=== PATIENT | female | born 1985 | race Caucasian/White ===

== ENCOUNTER 2017-05-03 20:19 | Emergency (ER) | payer OTHER ==
[2017-05-03] MEDS ORDERED: ALBUTEROL NEB 2.5 MG/3 ML INH STA (20:45)
[2017-05-03] MEDS ORDERED: ALBUTEROL NEB 2.5 MG/3 ML INH ONE (20:59)
[2017-05-03] MEDS ORDERED: SODIUM CHLORIDE FLUSH 0.9% 10 ML SYRINGE IVP ONE (21:04)
--- NOTE | 2017-05-03 21:12 | ED Physician Documentation ---
History of Present Illness - Stated complaint Stated Complaint: CHEST/BACK PX - Chief complaint Chief Complaint: General - Additonal information Additional information: hx from pt 31 female moved from [facility] a month ago upper back pain for a week chest pain since yesterday with SOA sig decreased exercise tolerance sx worse with exertion no leg swelling but had LLE calf pain hx seasonal allergies but not RAD Review of Systems Constitutional: denies: Fever, Chills Cardiac: reports: Chest pain / pressure Respiratory: reports: Dyspnea. denies: Cough GI: denies: Abdominal Pain, Nausea, Vomiting Musculoskeletal: reports: Back pain (upper) Endocrine: denies: Easy bruising / bleeding Immunocompromised: denies: Immunocompromised PD PAST MEDICAL HISTORY - Present Medications Home Medications: Ambulatory Orders Medication Instructions Recorded Confirmed Esomeprazole Magnesium [Nexium] 40 mg PO BID 05/03/17 05/03/17 Montelukast [Singulair] 10 mg PO QPM 05/03/17 05/03/17 Albuterol Sulfate [Proair Hfa 2 puffs INH Q4H PRN #1 inhaler 05/04/17 Inhaler] predniSONE [Deltasone] 60 mg PO DAILY 5 Days 05/04/17 - Allergies Allergies/Adverse Reactions: Allergies Allergy/AdvReac Type Severity Reaction Status Date / Time amoxicillin Allergy Unknown Verified 05/03/17 20:27 PD ED PE NORMAL - Vitals Vital signs reviewed: Yes - General General: Alert and oriented X 3 - Neck Neck: Supple, no meningeal sign - Cardiac Cardiac: RRR - Respiratory Respiratory: No respiratory distress, Clear bilaterally - Abdomen Abdomen: Soft, Non tender - Derm Derm: Normal color - Extremities Extremities: No deformity, Normal ROM s pain, No edema, No calf tenderness / cord - Neuro Neuro: Alert and oriented X 3 - Psych Psych: Normal mood Results - Vitals Vitals: Vital Signs - 24 hr 05/03/17 05/03/17 05/03/17 20:22 20:50 23:24 Temperature 36.4 C L Heart Rate 77 74 66 Respiratory 16 16 12 Rate Blood Pressure 124/86 H 127/85 H O2 Saturation 99 100 Oxygen O2 Source Room air - EKG (time done) 2048 Rate: Rate (enter#) Rhythm: NSR [place]: Normal Intervals: Normal [place] QRS: Normal Ischemia: Normal ST segments - Labs Labs: Laboratory Tests 0805/03/17 05/03/17 21:45 21:45 21:45 WBC 7.3 RBC 4.20 Hgb 12.4 Hct 36.0 L MCV 85.9 MCH 29.5 MCHC 34.3 RDW 12.8 Plt Count 263 MPV 8.3 Neut # 3.5 Lymph # 3.0 [place] # 0.7 Eos # 0.0 Baso # 0.0 Absolute Nucleated RBC 0.01 Nucleated RBCs 0.1 Sodium Potassium Chloride Carbon Dioxide Anion Gap BUN Creatinine Estimated GFR (MDRD) Glucose Calcium Total Bilirubin AST ALT Alkaline Phosphatase Troponin I < 0.04 Total Protein Albumin Globulin Albumin/Globulin Ratio Lipase Serum HCG, Qual NEGATIVE 05/03/17 22:50 WBC RBC Hgb Hct MCV MCH MCHC RDW Plt Count MPV Neut # Lymph # [place] # Eos # Baso # Absolute Nucleated RBC Nucleated RBCs Sodium 139 Potassium 3.1 L Chloride 105 Carbon Dioxide 25 Anion Gap 9.0 BUN 7 Creatinine 0.7 Estimated GFR (MDRD) 97 Glucose 105 H Calcium 9.7 Total Bilirubin 0.9 AST 18 ALT 14 Alkaline Phosphatase 49 Troponin I Total Protein 7.9 Albumin 4.6 Globulin 3.3 Albumin/Globulin Ratio 1.4 Lipase 34 Serum HCG, Qual PD MEDICAL DECISION MAKING - ED course ED course: neg EKG and trp after > 12 hr of sx pt is now low risk and so d dimer not applicable - got LE doppler and CTPA - both neg thankfully also no dissection pt did feel sig better with a neb tx so perhaps this is RAD form her env allergies after all will dc with prednsione and MDI and close PMD fup Departure - Departure Disposition: 01 Home, Self Care Clinical Impression: Pleurisy Reactive airway disease Qualifiers: Asthma severity: unspecified severity Asthma complication type: uncomplicated Qualified Code(s): J45.909 - Unspecified asthma, uncomplicated Condition: Good Instructions: ED Chest Pain Pleurisy, ED Reactive Airway Disease Follow-Up: Pedro Luis Nunes MD [Primary Care Provider] - Prescriptions: predniSONE [Deltasone] 60 mg PO DAILY 5 Days Albuterol Sulfate [Proair Hfa Inhaler] 2 puffs INH Q4H PRN #1 inhaler PRN Reason: Shortness Of Air/Wheezing Comments: The EKG and blood tests indicate you have not had a heart attack And the ultrasound and CT scan do not show any blood clot Also the CT scan did not show an aneurysm or tear of your aorta, fluid around your heart or lungs, a collapsed lung or any infections So it is safe to let you go home after all You did feel much better after the breathing treatment, so perhaps the symptoms are due to reactive airway disease (environmental triggers causing airway inflammation) - so I have prescribed steroids and an inhaler for you to try in addition to your usual allergy medications. Please follow up with your PMD at [facility] for a recheck next week And return to the ER if worse Forms: Activity restrictions
--- NOTE | 2017-05-03 21:43 | Ultrasound Preliminary Report ---
Exam: US Duplex Ext Veins Left IMPRESSION: No evidence for deep venous thrombosis. [facility] SITE ID: [id number]
--- NOTE | 2017-05-03 21:46 | Ultrasound Report ---
EXAM: LEFT LOWER EXTREMITY VENOUS ULTRASOUND EXAM DATE: 05/03/2017 08:53 PM. CLINICAL HISTORY: L calf pain CP SOA after travel from [facility]. COMPARISON: None. TECHNIQUE: Real-time sonographic vascular imaging was performed by the cost control analyst through the lower extremity utilizing both color-flow and Doppler spectral analysis. Multiple corporate representative static jd ges were saved for review. FINDINGS: Common Femoral Vein (CFV): Normal. CFV-GSV Junction: Normal. Profunda Femoral Vein (PFV): Normal. Femoral Vein (FV) Prox: Normal. Femoral Vein (FV) Mid: Normal. Femoral Vein (FV) Dist: Normal. Popliteal Vein: Normal. Posterior Tibial Veins: Normal. Peroneal Veins: Normal. Contralateral Side CFV: Normal. Other: None. IMPRESSION: No evidence for deep venous thrombosis. [facility] Referring Provider Line: [phone] SITE ID: [id number]
[2017-05-03 21:55] LABS: BASOPHILS % (AUTO) 0.5 %; EOSINOPHILS % (AUTO) 0.3 %; HGB - HEMOGLOBIN 12.4 g/dL (12.0-16.0); LYMPHOCYTES % (AUTO) 41.5 %; MEAN CORPUSCULAR HEMOGLOBIN 29.5 pg (27.0-31.0); MEAN CORPUSCULAR HGB CONC 34.3 g/dL (32.0-36.0); MEAN CORPUSCULAR VOLUME 85.9 fL (81.0-99.0); MEAN PLATELET VOLUME 8.3 fL (7.9-10.8); MONOCYTES # (AUTO) 0.7 10^3/uL (0.0-1.0); MONOCYTES % (AUTO) 9.2 %; NEUTROPHILS # (AUTO) 3.5 10^3/uL (1.5-6.6); NEUTROPHILS % (AUTO) 48.5 %; NUCLEATED RED BLOOD CELLS AUTO 0.1 /100WBC; RED CELL DISTRIBUTION WIDTH 12.8 % (12.0-15.0); UNCORRECTED WHITE BLOOD COUNT 7.3 x10^3/uL; WHITE BLOOD COUNT 7.3 x10^3/uL (4.8-10.8)
[2017-05-03 23:10] LABS: ALBUMIN/GLOBULIN RATIO 1.4 (1.0-2.2); BILIRUBIN,TOTAL 0.9 mg/dL (0.2-1.0); CALCIUM 9.7 mg/dL (8.5-10.3); CREATININE 0.7 mg/dL (0.4-1.0); POTASSIUM 3.1 mmol/L (3.5-5.0); TOTAL PROTEIN 7.9 g/dL (6.7-8.2)
[2017-05-03] MEDS ORDERED: IOPAMIDOL-300 100 ML VIAL IVP ONE (23:19)
--- NOTE | 2017-05-04 00:06 | CT Preliminary Report ---
Exam: CT Chest Angio (PE) IMPRESSION: Negative pulmonary CT angiogram. No pulmonary emboli. [facility] SITE ID: [id number]
--- NOTE | 2017-05-04 00:14 | CT Report ---
EXAM: CT ANGIOGRAM CHEST EXAM DATE: 05/03/2017 11:23 PM. CLINICAL HISTORY: Chest pain, shortness of air after flight from [facility]. COMPARISON: None. TECHNIQUE: Routine helical imaging was performed through the chest in the pulmonary arterial phase. I V Contrast: Yes. Reconstructions: Coronal 3-D MIP reconstructions.Sagittal and coronal. In accordance with CT protocol optimization, one or more of the following dose reduction techniques w ere utilized for this exam: automated exposure control, adjustment of mA and/or KV based on patient s ize, or use of iterative reconstructive technique. FINDINGS: Pulmonary Arteries: Technically adequate for evaluation through the segmental arteries. No evidence f or acute or chronic pulmonary emboli. Lungs/Pleura: No pneumonia, suspicious nodules, or edema. No effusions or pneumothorax. Mediastinum: No acute aortic syndrome. No cardiac enlargement. No adenopathy. Upper Abdomen: Couple of small hyperdense right liver foci are statistically benign such as flash anjana ling hemangiomas. Other: None. IMPRESSION: Negative pulmonary CT angiogram. No pulmonary emboli. [facility] Referring Provider Line: [phone] SITE ID: [id number]
[2017-05-04] MEDS ORDERED: ALBUTEROL NEB 2.5 MG/3 ML INH STA (00:52)
[2017-05-04] MEDS ORDERED: predniSONE 20 MG TABLET PO STA (00:52)
[2017-05-04 00:56] VITALS: BP 122/77
[2017-05-04] MEDS ORDERED: predniSONE 20 MG TABLET ONE (01:00)
[2017-05-04] MEDS ORDERED: ALBUTEROL NEB 2.5 MG/3 ML INH ONE (01:17)
== END 2017-05-04 01:33 | disposition home or self-care (01) ==
LOC: EDBD → ED 20:19
DX: J45.909 Unspecified asthma, uncomplicated (principal)
CPT/HCPCS: 36415; 71275; 80053; 83690; 84484; 84703; 85025; 93005; 93971; 94640; 94664; 99283; 99284; J7512; J7613; Q9967

== ENCOUNTER 2017-12-02 20:18 | Emergency (ER) | payer OTHER ==
[2017-12-02 20:39] LABS: BILIRUBIN,URINE NEGATIVE (NEGATIVE); GLUCOSE, URINE (UA) NEGATIVE (NEGATIVE); KETONES,URINE (UA) NEGATIVE (NEGATIVE); LEUKOCYTE ESTERASE, URINE NEGATIVE (NEGATIVE); NITRITE,URINE NEGATIVE (NEGATIVE); OCCULT BLOOD,URINE NEGATIVE (NEGATIVE); PROTEIN,URINE NEGATIVE (NEGATIVE); UROBILINOGEN,URINE 0.2 (NORMAL) E.U./dL (NORMAL)
[2017-12-02 20:43] LABS: CLARITY,URINE CLEAR (CLEAR); HCG UR QUAL NEGATIVE
--- NOTE | 2017-12-02 21:17 | ED Physician Documentation ---
History of Present Illness - Stated complaint Stated Complaint: FEMALE - Chief complaint Chief Complaint: Abd Pain - History obtained from History obtained from: Patient - History of Present Illness Timing: Yesterday Pain level now: 2 Improved by: no ameliorating factors Worsened by: dysuria is worse with urinating - Additonal information Additional information: c/o burning dysuria, lower abdominal cramping, BRBPR x 2 days Review of Systems Constitutional: reports: Reviewed and negative Cardiac: reports: Reviewed and negative Respiratory: reports: Reviewed and negative GI: reports: Abdominal Pain, Bloody / black stool. denies: Nausea, Vomiting, Constipation, Diarrhea : reports: Dysuria. 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 HEENT: Chronic sinusitis - Past Surgical History Past Surgical History: No - Present Medications Home Medications: Ambulatory Orders Medication Instructions Recorded Confirmed Esomeprazole Magnesium [Nexium] 40 mg PO BID 05/03/17 05/03/17 Montelukast [Singulair] 10 mg PO QPM 05/03/17 05/03/17 Albuterol Sulfate [Proair Hfa 2 puffs INH Q4H PRN #1 inhaler 05/04/17 Inhaler] predniSONE [Deltasone] 60 mg PO DAILY 5 Days tablet 05/04/17 - Allergies Allergies/Adverse Reactions: Allergies Allergy/AdvReac Type Severity Reaction Status Date / Time amoxicillin Allergy Unknown Verified 05/03/17 20:27 Cephalosporins Allergy Rash Verified 12/02/17 20:26 - Social History Does the pt smoke?: Yes Smoking Status: Current some day smoker Does the pt drink ETOH?: No Does the pt have substance abuse?: No PD ED PE NORMAL - Vitals Vital signs reviewed: Yes - General General: Alert and oriented X 3, No acute distress, Well developed/nourished - Cardiac Cardiac: RRR, No murmur - Respiratory Respiratory: No respiratory distress, Clear bilaterally - Abdomen Abdomen: Normal bowel sounds, Soft, Non tender, Non distended - Back Back: No CVA TTP - Derm Derm: Normal color, Warm and dry PD ED PE EXPANDED - Rectal Rectal: Heme Occult Neg - QC+, Pension Agent present. No: Mass, Hemorrhoid, Fissure Results - Vitals Vitals: Oxygen O2 Source Room air - Labs Labs: Laboratory Tests 12/02/17 20:36 Urine Color LT. YELLOW Urine Clarity CLEAR Urine pH 6.0 Ur Specific [place] <=1.005 Urine Protein NEGATIVE Urine Glucose (UA) NEGATIVE Urine Ketones NEGATIVE Urine Occult Blood NEGATIVE Urine Nitrite NEGATIVE Urine Bilirubin NEGATIVE Urine Urobilinogen 0.2 (NORMAL) Ur Leukocyte Esterase NEGATIVE Ur Microscopic Review NOT INDICATED Urine Culture Comments NOT INDICATED Urine HCG, Qual NEGATIVE PD MEDICAL DECISION MAKING - ED course Complexity details: reviewed results, re-evaluated patient, considered differential, d/w patient Departure - Departure Disposition: Home, Self Care Clinical Impression: Dysuria, Hematochezia Condition: Good Instructions: ED Dysuria Uncertain Cause, ED Hematochezia Stable Follow-Up: JEANNIE TOUSSAINT DO [Primary Care Provider] - Within 1 week Discharge Date/Time: 12/02/17 21:59
[2017-12-02 21:57] VITALS: BP 147/71
== END 2017-12-02 21:59 | disposition home or self-care (01) ==
LOC: ED 20:18
DX: E86.0 Dehydration (principal); K92.1 Melena; F17.200 Nicotine dependence, unspecified, uncomplicated
CPT/HCPCS: 81001; 81003; 81025; 87086; 99283

== ENCOUNTER 2018-03-27 03:51 | Emergency (ER) | payer OTHER ==
--- NOTE | 2018-03-27 04:13 | ED Physician Documentation ---
History of Present Illness - Stated complaint Stated Complaint: FEELING HOT - Chief complaint Chief Complaint: General - History obtained from History obtained from: Patient, Family - History of Present Illness Timing: Today - Additonal information Additional information: Patient is a 32 year old female with no significant past medical history who is presenting to the emergency department because she felt warm. patient states that she woke up from sleep about 30 minutes ago and felt hot. Patient states that the room was cool though and thought her body was breaking down. Patient had her call ems. Upon initial evaluation in the emergency department patient was afebrile and well appearing, but mildly anxious. 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 HEENT: Chronic sinusitis - Past Surgical History Past Surgical History: No - Present Medications Home Medications: Ambulatory Orders Medication Instructions Recorded Confirmed Esomeprazole Magnesium [Nexium] 40 mg PO BID 05/03/17 05/03/17 Montelukast [Singulair] 10 mg PO QPM 05/03/17 05/03/17 Albuterol Sulfate [Proair Hfa 2 puffs INH Q4H PRN #1 inhaler 05/04/17 Inhaler] predniSONE [Deltasone] 60 mg PO DAILY 5 Days tablet 05/04/17 - Allergies Allergies/Adverse Reactions: Allergies Allergy/AdvReac Type Severity Reaction Status Date / Time amoxicillin Allergy Unknown Verified 05/03/17 20:27 Cephalosporins Allergy Rash Verified 12/02/17 20:26 - Social History Does the pt smoke?: Yes Smoking Status: Current every day smoker Does the pt drink ETOH?: No Does the pt have substance abuse?: No - Immunizations Immunizations are current?: Yes - POLST Patient has POLST: No PD ED PE NORMAL - Vitals Vital signs reviewed: Yes - General General: Alert and oriented X 3, No acute distress - HEENT HEENT: Atraumatic, Moist mucous membranes - Cardiac Cardiac: RRR - Respiratory Respiratory: No respiratory distress - Abdomen Abdomen: Non distended - Derm Derm: Normal color, Warm and dry, No rash - Extremities Extremities: No deformity - Neuro Neuro: Alert and oriented X 3 Eye Opening: Spontaneous PD ED PE EXPANDED - General General: Alert, Anxious Results - Vitals Vitals: Vital Signs - 24 hr 03/27/18 03:54 Temperature 36.4 C L Heart Rate 78 Respiratory 18 Rate Blood Pressure 144/88 H O2 Saturation 100 Oxygen O2 Source Room air - Labs Labs: Laboratory Tests 03/27/18 03/27/18 03/27/18 04:15 04:15 04:25 WBC 6.5 RBC 4.21 Hgb 12.6 Hct 36.5 L MCV 86.7 MCH 29.8 MCHC 34.4 RDW 12.7 Plt Count 290 MPV 7.6 L Neut # (Auto) 3.3 Lymph # (Auto) 2.5 [place] # (Auto) 0.6 Eos # (Auto) 0.1 Baso # (Auto) 0.0 Absolute Nucleated RBC 0.00 Nucleated RBC % 0.0 Sodium 136 Potassium 3.3 L Chloride 102 Carbon Dioxide 27 Anion Gap 7.0 BUN 12 Creatinine 0.6 Estimated GFR (MDRD) 115 Glucose 107 H Calcium 9.1 Total Bilirubin 1.0 AST 20 ALT 16 Alkaline Phosphatase 43 Total Protein 7.8 Albumin 4.3 Globulin 3.5 Albumin/Globulin Ratio 1.2 Lipase 40 Urine Color LT RED Urine Clarity SL. CLOUDY Urine pH 7.0 Ur Specific [place] 1.010 Urine Protein NEGATIVE Urine Glucose (UA) NEGATIVE Urine Ketones NEGATIVE Urine Occult Blood LARGE H Urine Nitrite NEGATIVE Urine Bilirubin NEGATIVE Urine Urobilinogen 0.2 (NORMAL) Ur Leukocyte Esterase NEGATIVE Urine RBC TNTC H Urine WBC 0-3 Ur Squamous Epith Cells FEW Squamous Urine Bacteria None Seen Ur Microscopic Review INDICATED Urine Culture Comments NOT INDICATED Urine HCG, Qual NEGATIVE PD MEDICAL DECISION MAKING - ED course Complexity details: reviewed old records, reviewed results, re-evaluated patient , considered differential, d/w patient ED course: Patient was seen and examined at bedside. patient was anxious but otherwise in no distress. Patient stated that her jeans were making her hot so she changed into a gown. Patient's labs were drawn urine was collected. patient's diagnostics were within normal limits. Patient required no further work up and was stable for discharge with outpatient follow up. - Sepsis Event Vital Signs: Vital Signs - 24 hr 03/27/18 03:54 Temperature 36.4 C L Heart Rate 78 Respiratory 18 Rate Blood Pressure 144/88 H O2 Saturation 100 Oxygen O2 Source Room air Departure - Departure Disposition: 01 Home, Self Care Clinical Impression: Hot flash not due to menopause Condition: Good Instructions: ED Temperature How to Take Follow-Up: JEANNIE TOUSSAINT, [Primary Care Provider] - Comments: You diagnostics today were within normal limits. there were no acute abnormalities. It is difficult to say what exactly caused your symptoms. Next time it happens take a cool shower and try taking your temperature. you should follow up with your doctor if this becomes more frequent. you may return to the emergency department at any time for new, worsening or uncontrollable symptoms.
[2018-03-27 04:22] LABS: BASOPHILS % (AUTO) 0.6 %; EOSINOPHILS # (AUTO) 0.1 10^3/uL (0.0-0.7); EOSINOPHILS % (AUTO) 0.9 %; HGB - HEMOGLOBIN 12.6 g/dL (12.0-16.0); LYMPHOCYTES # (AUTO) 2.5 10^3/uL (1.5-3.5); LYMPHOCYTES % (AUTO) 38.7 %; MEAN CORPUSCULAR HEMOGLOBIN 29.8 pg (27.0-31.0); MEAN CORPUSCULAR HGB CONC 34.4 g/dL (32.0-36.0); MEAN CORPUSCULAR VOLUME 86.7 fL (81.0-99.0); MEAN PLATELET VOLUME 7.6 fL (7.9-10.8); MONOCYTES # (AUTO) 0.6 10^3/uL (0.0-1.0); MONOCYTES % (AUTO) 8.8 %; NEUTROPHILS # (AUTO) 3.3 10^3/uL (1.5-6.6); PLT - PLATELET COUNT 290 10^3/uL (130-450); RED BLOOD COUNT 4.21 10^6/uL (4.20-5.40); RED CELL DISTRIBUTION WIDTH 12.7 % (12.0-15.0); WHITE BLOOD COUNT 6.5 x10^3/uL (4.8-10.8)
[2018-03-27 04:35] LABS: ALBUMIN 4.3 g/dL (3.2-5.5); ALBUMIN/GLOBULIN RATIO 1.2 (1.0-2.2); CALCIUM 9.1 mg/dL (8.5-10.3); CREATININE 0.6 mg/dL (0.4-1.0); TOTAL PROTEIN 7.8 g/dL (6.7-8.2)
[2018-03-27 04:45] LABS: BILIRUBIN,URINE NEGATIVE (NEGATIVE); GLUCOSE, URINE (UA) NEGATIVE (NEGATIVE); KETONES,URINE (UA) NEGATIVE (NEGATIVE); LEUKOCYTE ESTERASE, URINE NEGATIVE (NEGATIVE); NITRITE,URINE NEGATIVE (NEGATIVE); OCCULT BLOOD,URINE LARGE (NEGATIVE); PROTEIN,URINE NEGATIVE (NEGATIVE); UROBILINOGEN,URINE 0.2 (NORMAL) E.U./dL (NORMAL)
[2018-03-27 04:51] LABS: BACTERIA,URINE None Seen /HPF (None Seen); CLARITY,URINE SL. CLOUDY (CLEAR); HCG UR QUAL NEGATIVE; RBC,URINE TNTC /HPF (0-5); SQUAMOUS EPITHELIAL CELL,UR FEW Squamous (<= Few)
[2018-03-27 05:26] VITALS: BP 136/75
== END 2018-03-27 05:15 | disposition home or self-care (01) ==
LOC: ED 03:51
DX: R44.8 Other symptoms and signs involving general sensations and perceptions (principal)
CPT/HCPCS: 36415; 80053; 81001; 81003; 81025; 83690; 85025; 87086; 99283

== ENCOUNTER 2018-04-17 02:26 | Outpatient (CLI) | payer OTHER | END 2018-04-17 02:27 | disposition critical access hospital (66) | LOC: EMS 02:26 | PROVIDERS: ATTEND Surgery | DX: R00.0 Tachycardia, unspecified (principal) | CPT/HCPCS: A0425; A0427 ==

== ENCOUNTER 2018-04-17 02:48 | Emergency (ER) | payer OTHER ==
[2018-04-17] MEDS ORDERED: SODIUM CHLORIDE 0.9% 1,000 ML IV ONE (04:16)
[2018-04-17 04:33] LABS: BASOPHILS # (AUTO) 0.1 10^3/uL (0.0-0.1); BASOPHILS % (AUTO) 0.6 %; EOSINOPHILS # (AUTO) 0.1 10^3/uL (0.0-0.7); EOSINOPHILS % (AUTO) 1.2 %; HGB - HEMOGLOBIN 12.3 g/dL (12.0-16.0); LYMPHOCYTES # (AUTO) 2.3 10^3/uL (1.5-3.5); LYMPHOCYTES % (AUTO) 25.1 %; MEAN CORPUSCULAR HEMOGLOBIN 29.7 pg (27.0-31.0); MEAN CORPUSCULAR HGB CONC 34.8 g/dL (32.0-36.0); MEAN CORPUSCULAR VOLUME 85.4 fL (81.0-99.0); MEAN PLATELET VOLUME 8.5 fL (7.9-10.8); MONOCYTES # (AUTO) 0.7 10^3/uL (0.0-1.0); MONOCYTES % (AUTO) 7.6 %; NEUTROPHILS # (AUTO) 6.1 10^3/uL (1.5-6.6); NEUTROPHILS % (AUTO) 65.5 %; PLT - PLATELET COUNT 319 10^3/uL (130-450); RED BLOOD COUNT 4.13 10^6/uL (4.20-5.40); RED CELL DISTRIBUTION WIDTH 12.9 % (12.0-15.0); WHITE BLOOD COUNT 9.3 x10^3/uL (4.8-10.8)
[2018-04-17 04:42] LABS: CALCIUM 10.1 mg/dL (8.5-10.3); CREATININE 0.6 mg/dL (0.4-1.0)
--- NOTE | 2018-04-17 05:04 | ED Physician Documentation ---
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 denies chest pain, dyspnea. felt dizzy upon standing and ambulating. similar episodes in the past with unremarkable ED testing. she has upcoming cardiology appointment for possible holter monitor Review of Systems Constitutional: reports: Sweats. denies: Fever, Chills Cardiac: reports: Palpitations. 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 HEENT: Chronic sinusitis - Past Surgical History Past Surgical History: No - Present Medications Home Medications: Ambulatory Orders Medication Instructions Recorded Confirmed Esomeprazole Magnesium [Nexium] 40 mg PO BID 05/03/17 05/03/17 Montelukast [Singulair] 10 mg PO QPM 05/03/17 05/03/17 Albuterol Sulfate [Proair Hfa 2 puffs INH Q4H PRN #1 inhaler 05/04/17 Inhaler] predniSONE [Deltasone] 60 mg PO DAILY 5 Days tablet 05/04/17 LORazepam [Lorazepam] 0.5 - 1 mg PO QPM #14 tablet 04/17/18 - Allergies Allergies/Adverse Reactions: Allergies Allergy/AdvReac Type Severity Reaction Status Date / Time amoxicillin Allergy Unknown Verified 04/17/18 02:56 Cephalosporins Allergy Rash Verified 04/17/18 02:56 - Social History Does the pt smoke?: Yes Smoking Status: Current every day smoker Does the pt drink ETOH?: No Does the pt have substance abuse?: No - Immunizations Immunizations are current?: Yes - POLST Patient has POLST: No PD ED PE NORMAL - Vitals Vital signs reviewed: Yes - General General: Alert and oriented X 3, No acute distress, Well developed/nourished - HEENT HEENT: Moist mucous membranes - Cardiac Cardiac: RRR, No murmur, No gallop, No rub - Respiratory Respiratory: No respiratory distress, Clear bilaterally - Abdomen Abdomen: Soft, Non tender - Extremities Extremities: No edema Results - Vitals Vitals: Vital Signs - 24 hr 04/17/18 04/17/18 05:01 05:30 Heart Rate 92 88 Respiratory 15 16 Rate Blood Pressure 121/75 131/88 H O2 Saturation 99 100 Oxygen O2 Source Room air - EKG (time done) No standard instances Rate: Rate (enter#) (93) Rhythm: NSR [place]: Normal Intervals: Normal [place] QRS: Normal Ischemia: Normal ST segments - Labs Labs: Laboratory Tests 04/17/18 04/17/18 04/17/18 03:25 03:25 03:25 WBC 9.3 RBC 4.13 L Hgb 12.3 Hct 35.3 L MCV 85.4 MCH 29.7 MCHC 34.8 RDW 12.9 Plt Count 319 MPV 8.5 Neut # (Auto) 6.1 Lymph # (Auto) 2.3 [place] # (Auto) 0.7 Eos # (Auto) 0.1 Baso # (Auto) 0.1 Absolute Nucleated RBC 0.00 Nucleated RBC % 0.0 Sodium 135 Potassium 3.6 Chloride 102 Carbon Dioxide 22 Anion Gap 11.0 BUN 12 Creatinine 0.6 Estimated GFR (MDRD) 115 Glucose 104 H Calcium 10.1 Troponin I < 0.04 TSH 04/17/18 03:25 WBC RBC Hgb Hct MCV MCH MCHC RDW Plt Count MPV Neut # (Auto) Lymph # (Auto) [place] # (Auto) Eos # (Auto) Baso # (Auto) Absolute Nucleated RBC Nucleated RBC % Sodium Potassium Chloride Carbon Dioxide Anion Gap BUN Creatinine Estimated GFR (MDRD) Glucose Calcium Troponin I TSH 5.03 PD MEDICAL DECISION MAKING - ED course Complexity details: reviewed results, re-evaluated patient, considered differential, d/w patient - Sepsis Event Vital Signs: Vital Signs - 24 hr 04/17/18 04/17/18 05:01 05:30 Heart Rate 92 88 Respiratory 15 16 Rate Blood Pressure 121/75 131/88 H O2 Saturation 99 100 Oxygen O2 Source Room air Departure - Departure Disposition: 01 Home, Self Care Clinical Impression: Palpitations, Sinus tachycardia Condition: Good Instructions: ED Palpitations Prescriptions: LORazepam [Lorazepam] 0.5 - 1 mg PO QPM #14 tablet Forms: Activity restrictions Discharge Date/Time: 04/17/18 06:00
[2018-04-17 05:53] VITALS: BP 131/88
== END 2018-04-17 06:00 | disposition home or self-care (01) ==
LOC: EDUNIT# → SUPCPDRO 02:48 → ED 02:48
DX: R00.2 Palpitations (principal); R00.0 Tachycardia, unspecified
CPT/HCPCS: 36415; 80048; 84443; 84484; 85025; 93005; 96360; 99283; 99284

== ENCOUNTER 2018-06-25 17:36 | Emergency (ER) | payer OTHER ==
[2018-06-25 18:07] LABS: BILIRUBIN,URINE NEGATIVE (NEGATIVE); GLUCOSE, URINE (UA) NEGATIVE (NEGATIVE); KETONES,URINE (UA) NEGATIVE (NEGATIVE); LEUKOCYTE ESTERASE, URINE NEGATIVE (NEGATIVE); NITRITE,URINE NEGATIVE (NEGATIVE); OCCULT BLOOD,URINE SMALL (NEGATIVE); PROTEIN,URINE NEGATIVE (NEGATIVE); UROBILINOGEN,URINE 0.2 (NORMAL) E.U./dL (NORMAL)
[2018-06-25 18:11] LABS: CLARITY,URINE CLEAR (CLEAR); HCG UR QUAL NEGATIVE
[2018-06-25] MEDS ORDERED: SODIUM CHLORIDE 0.9% 1,000 ML IV ONE (18:20)
[2018-06-25 18:23] LABS: BACTERIA,URINE None Seen /HPF (None Seen); RBC,URINE 0-5 /HPF (0-5); SQUAMOUS EPITHELIAL CELL,UR FEW Squamous (<= Few)
[2018-06-25 18:48] LABS: BASOPHILS % (AUTO) 0.5 %; EOSINOPHILS % (AUTO) 0.2 %; HGB - HEMOGLOBIN 12.7 g/dL (12.0-16.0); LYMPHOCYTES # (AUTO) 1.8 10^3/uL (1.5-3.5); LYMPHOCYTES % (AUTO) 21.2 %; MEAN CORPUSCULAR HEMOGLOBIN 29.8 pg (27.0-31.0); MEAN CORPUSCULAR HGB CONC 34.2 g/dL (32.0-36.0); MEAN CORPUSCULAR VOLUME 87.1 fL (81.0-99.0); MEAN PLATELET VOLUME 8.1 fL (7.9-10.8); MONOCYTES # (AUTO) 0.5 10^3/uL (0.0-1.0); MONOCYTES % (AUTO) 6.5 %; NEUTROPHILS % (AUTO) 71.6 %; PLT - PLATELET COUNT 292 10^3/uL (130-450); RED BLOOD COUNT 4.28 10^6/uL (4.20-5.40); RED CELL DISTRIBUTION WIDTH 12.8 % (12.0-15.0); WHITE BLOOD COUNT 8.4 x10^3/uL (4.8-10.8)
[2018-06-25 18:58] LABS: ALBUMIN 4.7 g/dL (3.2-5.5); ALBUMIN/GLOBULIN RATIO 1.4 (1.0-2.2); BILIRUBIN,TOTAL 1.9 mg/dL (0.2-1.0); CALCIUM 9.3 mg/dL (8.5-10.3); CREATININE 0.6 mg/dL (0.4-1.0); TOTAL PROTEIN 8.1 g/dL (6.7-8.2)
--- NOTE | 2018-06-25 20:37 | Ultrasound Report ---
Reason: pelvic pain Procedure Date: 06/25/2018 Accession Number: [id number] / [id number] Procedure: US - Transvaginal CPT Code: FULL RESULT: EXAM: PELVIC ULTRASOUND EXAM DATE: 06/25/2018 07:58 PM. CLINICAL HISTORY: Pelvic pain. COMPARISON: None. TECHNIQUE: Realtime transvaginal pelvic imaging with static image documentation. FINDINGS: Uterus: 7.8 x 2.9 x 4.5 cm, volume 53 cc. Anteverted position. Normal overall size and echotexture. Masses: None. Endometrium: 7 mm. Normal. Cervix: Unremarkable. Right Ovary: 2.8 x 2.0 x 2.1 cm, volume 6 cc. Normal echotexture and blood flow. Left Ovary: 3.2 x 2.4 x 2.4 cm, volume 10 cc. Normal echotexture and blood flow. Free Fluid: None. Other: None. IMPRESSION: Normal pelvic ultrasound. [facility]
--- NOTE | 2018-06-25 21:16 | ED Physician Documentation ---
History of Present Illness - Stated complaint Stated Complaint: ABD PX/FEMALE - Chief complaint Chief Complaint: General - Additonal information Additional information: 32-year-old female presents the emergency department with a sharp burning pain in her vagina which started today. The patient also reports dysuria and irritation. The patient denies any vaginal lesions, discharge or vaginal bleeding. The patient denies any new sexual contacts or high risk sexual behavior. Symptoms are described as moderate. No triggering factors. No relieving factors. No other associated symptoms Review of Systems Constitutional: denies: Fever, Chills Eyes: denies: Discharge Ears: denies: Ear pain Nose: denies: Congestion Cardiac: denies: Chest pain / pressure GI: reports: Abdominal Pain : reports: Dysuria. 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: Ovarian cysts HEENT: Chronic sinusitis - Past Surgical History Past Surgical History: No - Present Medications Home Medications: Ambulatory Orders Medication Instructions Recorded Confirmed Esomeprazole Magnesium [Nexium] 40 mg PO BID 05/03/17 05/03/17 Montelukast [Singulair] 10 mg PO QPM 05/03/17 05/03/17 Albuterol Sulfate [Proair Hfa 2 puffs INH Q4H PRN #1 inhaler 05/04/17 Inhaler] predniSONE [Deltasone] 60 mg PO DAILY 5 Days tablet 05/04/17 LORazepam [Lorazepam] 0.5 - 1 mg PO QPM #14 tablet 04/17/18 - Allergies Allergies/Adverse Reactions: Allergies Allergy/AdvReac Type Severity Reaction Status Date / Time amoxicillin Allergy Unknown Verified 06/25/18 17:58 Cephalosporins Allergy Rash Verified 06/25/18 17:58 - Social History Does the pt smoke?: Yes Smoking Status: Current every day smoker Does the pt drink ETOH?: Yes Does the pt have substance abuse?: No - Immunizations Immunizations are current?: Yes - POLST Patient has POLST: No PD ED PE NORMAL - General General: Alert and oriented X 3, No acute distress - HEENT HEENT: Atraumatic, PERRL, EOMI - Cardiac Cardiac: RRR, Strong equal pulses - Respiratory Respiratory: No respiratory distress, Clear bilaterally - Abdomen Abdomen: Soft, Non tender, Non distended - Female Female : Crime Laboratory Analyst present - Derm Derm: Normal color - Extremities Extremities: No deformity, No edema - Neuro Neuro: Alert and oriented X 3, Normal speech - Psych Psych: Normal affect PD ED PE EXPANDED - Female Female : Normal external, Cultures sent, Crime Laboratory Analyst present. No: Skin lesions, Vaginal Bleeding, Vaginal Discharge, Dilated cervix, Tissue present Results - Vitals Vitals: Vital Signs - 24 hr 06/25/18 17:55 Temperature 36.8 C Heart Rate 76 Respiratory 16 Rate Blood Pressure 125/75 O2 Saturation 100 Oxygen O2 Source Room air - Labs Labs: Laboratory Tests 06/25/18 06/25/18 06/25/18 18:01 18:40 18:40 WBC 8.4 RBC 4.28 Hgb 12.7 Hct 37.2 MCV 87.1 MCH 29.8 MCHC 34.2 RDW 12.8 Plt Count 292 MPV 8.1 Neut # (Auto) 6.0 Lymph # (Auto) 1.8 [place] # (Auto) 0.5 Eos # (Auto) 0.0 Baso # (Auto) 0.0 Absolute Nucleated RBC 0.00 Nucleated RBC % 0.0 Sodium 138 Potassium 3.3 L Chloride 100 L Carbon Dioxide 28 Anion Gap 10.0 BUN 8 Creatinine 0.6 Estimated GFR (MDRD) 115 Glucose 107 H Calcium 9.3 Total Bilirubin 1.9 H AST 20 ALT 16 Alkaline Phosphatase 51 Total Protein 8.1 Albumin 4.7 Globulin 3.4 Albumin/Globulin Ratio 1.4 Lipase 34 Urine Color LIGHT YELLOW Urine Clarity CLEAR Urine pH 6.0 Ur Specific [place] <=1.005 Urine Protein NEGATIVE Urine Glucose (UA) NEGATIVE Urine Ketones NEGATIVE Urine Occult Blood SMALL H Urine Nitrite NEGATIVE Urine Bilirubin NEGATIVE Urine Urobilinogen 0.2 (NORMAL) Ur Leukocyte Esterase NEGATIVE Urine RBC 0-5 Urine WBC 0-3 Ur Squamous Epith Cells FEW Squamous Urine Bacteria None Seen Ur Microscopic Review INDICATED Urine Culture Comments NOT INDICATED Urine HCG, Qual NEGATIVE - Rads (name of study) PELVIC US Radiology: Final report received PD MEDICAL DECISION MAKING - ED course ED course: The patient's workup does not reveal any acute abnormality that would necessitate admission to the hospital or acute surgical consultation. On reevaluation the patient is resting comfortably and reports that her symptoms have improved. I discussed with the patient the findings and advised that she will require further workup and evaluation by her IT DIRECTOR to further evaluate this pain. Presently the patient appears appropriate for discharge and ongoing outpatient management. I discussed warning signs and recommended returning to the emergency department immediately for any worsening or any concerns. Departure - Departure Disposition: 01 Home, Self Care Clinical Impression: Pelvic pain Condition: Good Instructions: ED Abdominal Pain Unkn Cause, ED Acute Pain [facility]O Follow-Up: JEANNIE TOUSSAINT DO [Primary Care Provider] - Comments: Please follow-up with your IT DIRECTOR for further workup and evaluation of your pain. Please return to the emergency department for any worsening or any concerns.
[2018-06-25 21:45] VITALS: BP 115/84
== END 2018-06-25 21:44 | disposition home or self-care (01) ==
LOC: ED 17:36
DX: R10.2 Pelvic and perineal pain (principal); F17.200 Nicotine dependence, unspecified, uncomplicated
CPT/HCPCS: 36415; 76830; 80053; 81001; 81003; 81025; 83690; 85025; 87086; 87210; 87491; 87591; 96360; 99283; 99284

== ENCOUNTER 2019-03-22 00:06 | Outpatient (CLI) | payer OTHER | END 2019-03-22 00:07 | disposition critical access hospital (66) | LOC: EMS 00:06 | PROVIDERS: ATTEND Surgery | DX: R42 Dizziness and giddiness (principal); R51 Headache | CPT/HCPCS: A0425; A0429 ==

== ENCOUNTER 2019-03-22 00:21 | Emergency (ER) | payer OTHER ==
--- NOTE | 2019-03-22 00:52 | ED Physician Documentation ---
History of Present Illness - Stated complaint Stated Complaint: LUONG, DIZZY, POSS MED REACTION - Chief complaint Chief Complaint: Allergic Rx - History obtained from History obtained from: Patient - History of Present Illness Timing: Prior to arrival Severity Comments: No pain - Additonal information Additional information: This is a 33-year-old woman who presents by ambulance with complaints that she thinks she may be having a reaction to Zoloft. She was just started on that 4 days ago and she feels like crap. She had a headache for the past 4 days and then tonight she took the pill after she got home from work approximately 2 and half hours prior to presentation. Within minutes she felt a "paige" of excitement then her heart was racing and she felt very dizzy. Her fingers and toes started to get really tingly and she was nauseous. She did not vomit or pass out. After that she just felt like she was intoxicated. She decided to come into the emergency department and while driving herself here the same thing happened again with that heart racing and feeling dizzy and nauseous she checked her try to check her heart rate but it was going to fast for her to even counted. She reports a similar episode a year ago and which she was seen in the emergency department and she had 2 prior episodes for which she was not eval uated. She wore a heart monitor for just a little bit less than a month. The special education preschool teacher told her everything looked fine recommended that she drink sports drinks to keep her electrolytes up. Patient denies stating that her is deployed in [place] and her last menstrual period was March 10. She feels like her vision is a little blurry like she cannot focus on things. She denies any stuffy nose or sore throat. She is feeling little bit short of breath but believes that is due to anxiety. Denies any history of DVT. Denies fever. Patient's brother had "something" installed in his chest that helped regulate his heartbeat. Review of Systems Constitutional: denies: Fever Eyes: reports: Decreased vision Ears: denies: Ear pain Nose: denies: Rhinorrhea / runny nose, Congestion Throat: denies: Sore throat Cardiac: reports: Palpitations. denies: Chest pain / pressure Respiratory: reports: Dyspnea. denies: Cough GI: reports: Nausea, Vomiting (She has been experiencing some vomiting in the mornings). denies: Abdominal Pain : reports: LMP (March 10). denies: Dysuria, Now EGA Skin: denies: Rash Neurologic: reports: Headache. 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 HEENT: Chronic sinusitis - Past Surgical History Past Surgical History: No - Present Medications Home Medications: Ambulatory Orders Medication Instructions Recorded Confirmed Esomeprazole Magnesium [Nexium] 40 mg PO BID 05/03/17 05/03/17 Montelukast [Singulair] 10 mg PO QPM 05/03/17 05/03/17 Albuterol Sulfate [Proair Hfa 2 puffs INH Q4H PRN #1 inhaler 05/04/17 Inhaler] predniSONE [Deltasone] 60 mg PO DAILY 5 Days tablet 05/04/17 LORazepam [Lorazepam] 0.5 - 1 mg PO QPM #14 tablet 04/17/18 - Allergies Allergies/Adverse Reactions: Allergies Allergy/AdvReac Type Severity Reaction Status Date / Time amoxicillin Allergy Unknown Verified 06/25/18 17:58 Cephalosporins Allergy Rash Verified 06/25/18 17:58 - Social History Does the pt smoke?: Yes Smoking Status: Current every day smoker Does the pt drink ETOH?: Yes Does the pt have substance abuse?: No - Immunizations Immunizations are current?: Yes - POLST Patient has POLST: No PD ED PE NORMAL - Vitals Vital signs reviewed: Yes - General General: Alert and oriented X 3, No acute distress, Well developed/nourished - HEENT HEENT: Atraumatic, PERRL, EOMI, Moist mucous membranes - Neck Neck: Supple, no meningeal sign, No adenopathy, Thyroid normal - Cardiac Cardiac: RRR, No murmur - Respiratory Respiratory: No respiratory distress, Clear bilaterally - Abdomen Abdomen: Normal bowel sounds, Soft, Non tender - Derm Derm: Normal color, Warm and dry, No rash - Extremities Extremities: No deformity, No edema - Neuro Neuro: Alert and oriented X 3, livestock farmers 2-12 intact, No motor deficit, No sensory deficit, Normal speech - Psych Psych: Normal mood, Normal affect Results - Vitals Vitals: Vital Signs - 24 hr 03/22/19 03/22/19 03/22/19 00:25 01:12 01:59 Temperature 36.8 C Heart Rate 61 64 54 L Respiratory 21 15 14 Rate Blood Pressure 128/94 H 109/76 113/72 O2 Saturation 99 98 99 03/22/19 03:35 Temperature Heart Rate 82 Respiratory 20 Rate Blood Pressure 111/73 O2 Saturation 99 Oxygen O2 Source Room air - EKG (time done) 0106 Rate: Rate (enter#) Rhythm: Sinus bradycardia Intervals: Normal NH QRS: Normal Ischemia: Normal ST segments - Labs Labs: Laboratory Tests 03/22/19 03/22/19 03/22/19 00:30 00:30 00:30 WBC 7.4 RBC 4.54 Hgb 13.8 Hct 41.1 MCV 90.5 MCH 30.4 MCHC 33.6 RDW 12.2 Plt Count 328 MPV 9.9 Neut # (Auto) 3.9 Lymph # (Auto) 2.9 [place] # (Auto) 0.6 Eos # (Auto) 0.1 Baso # (Auto) 0.0 Absolute Nucleated RBC 0.00 Nucleated RBC % 0.0 Sodium 138 Potassium 3.0 L Chloride 101 Carbon Dioxide 24 Anion Gap 13.0 BUN 11 Creatinine 0.5 Estimated GFR (MDRD) 141 Glucose 90 Calcium 9.8 Phosphorus 3.1 Magnesium 2.0 TSH 2.61 Urine Color Urine Clarity Urine pH Ur Specific [place] Urine Protein Urine Glucose (UA) Urine Ketones Urine Occult Blood Urine Nitrite Urine Bilirubin Urine Urobilinogen Ur Leukocyte Esterase Ur Microscopic Review Urine Culture Comments Urine HCG, Qual Urine Opiates Screen Ur Oxycodone Screen Urine Methadone Screen Ur Propoxyphene Screen Ur Barbiturates Screen Ur Tricyclics Screen Ur Phencyclidine Scrn Ur Amphetamine Screen U Methamphetamines Scrn U Benzodiazepines Scrn Urine Cocaine Screen U Cannabinoids Screen Ethyl Alcohol < 5.0 03/22/19 03/22/19 01:02 01:02 WBC RBC Hgb Hct MCV MCH MCHC RDW Plt Count MPV Neut # (Auto) Lymph # (Auto) [place] # (Auto) Eos # (Auto) Baso # (Auto) Absolute Nucleated RBC Nucleated RBC % Sodium Potassium Chloride Carbon Dioxide Anion Gap BUN Creatinine Estimated GFR (MDRD) Glucose Calcium Phosphorus Magnesium TSH Urine Color YELLOW Urine Clarity CLEAR Urine pH 7.0 Ur Specific [place] <=1.005 Urine Protein NEGATIVE Urine Glucose (UA) NEGATIVE Urine Ketones NEGATIVE Urine Occult Blood NEGATIVE Urine Nitrite NEGATIVE Urine Bilirubin NEGATIVE Urine Urobilinogen 0.2 (NORMAL) Ur Leukocyte Esterase NEGATIVE Ur Microscopic Review NOT INDICATED Urine Culture Comments NOT INDICATED Urine HCG, Qual NEGATIVE Urine Opiates Screen NEGATIVE Ur Oxycodone Screen NEGATIVE Urine Methadone Screen NEGATIVE Ur Propoxyphene Screen NEGATIVE Ur Barbiturates Screen NEGATIVE Ur Tricyclics Screen NEGATIVE Ur Phencyclidine Scrn NEGATIVE Ur Amphetamine Screen NEGATIVE U Methamphetamines Scrn NEGATIVE U Benzodiazepines Scrn NEGATIVE Urine Cocaine Screen NEGATIVE U Cannabinoids Screen NEGATIVE Ethyl Alcohol - Rads (name of study) CXR Radiology: EMP read contemporaneously (Neg CXR) PD MEDICAL DECISION MAKING - ED course Complexity details: reviewed results, d/w patient, d/w family ED course: Patient was monitored here in the emergency department for couple of hours and had no episodes of tachycardia.Her potassium was a little low at 3.0. Normal CBC. Drug screen was negative and TSH level was negative. Patient does not want to continue taking the Zoloft concerned that it was what precipitated her symptoms. She is only been on it for days I think she can stop it. She will follow back up with her primary care provider. We talked about SVT and how she can do vagal maneuvers to break an SVT if necessary. Departure - Departure Disposition: 01 Home, Self Care Clinical Impression: Palpitations Condition: Good Instructions: ED Palpitations Follow-Up: JEANNIE TOUSSAINT DO [Primary Care Provider] - Comments: If you experience the rapid heart rate you can try to hold her breath and bear down to see if that will stop it. If you count the rate would be helpful for your provider. Make sure that you are drinking plenty of water and Gatorade as suggested by the special education preschool teacher may help keep you from dropping her potassium. You should have your potassium retested by your primary care provider to make sure you do not need supplementation. Return if any problems arise.
[2019-03-22 01:01] LABS: BASOPHILS % (AUTO) 0.5 %; EOSINOPHILS # (AUTO) 0.1 10^3/uL (0.0-0.7); EOSINOPHILS % (AUTO) 0.7 %; HGB - HEMOGLOBIN 13.8 g/dL (12.0-16.0); LYMPHOCYTES # (AUTO) 2.9 10^3/uL (1.5-3.5); LYMPHOCYTES % (AUTO) 38.9 %; MEAN CORPUSCULAR HEMOGLOBIN 30.4 pg (27.0-31.0); MEAN CORPUSCULAR HGB CONC 33.6 g/dL (32.0-36.0); MEAN CORPUSCULAR VOLUME 90.5 fL (81.0-99.0); MEAN PLATELET VOLUME 9.9 fL (7.9-10.8); MONOCYTES # (AUTO) 0.6 10^3/uL (0.0-1.0); MONOCYTES % (AUTO) 7.7 %; NEUTROPHILS # (AUTO) 3.9 10^3/uL (1.5-6.6); NEUTROPHILS % (AUTO) 51.9 %; PLT - PLATELET COUNT 328 10^3/uL (130-450); RED BLOOD COUNT 4.54 10^6/uL (4.20-5.40); RED CELL DISTRIBUTION WIDTH 12.2 % (12.0-15.0); WHITE BLOOD COUNT 7.4 x10^3/uL (4.8-10.8)
[2019-03-22 01:08] LABS: MUDS CUTOFF CONCENTRATIONS CUTOFF CONC BELOW:
[2019-03-22 01:10] LABS: BUN - BLOOD UREA NITROGEN 11 mg/dL (6-20); CALCIUM 9.8 mg/dL (8.5-10.3); CARBON DIOXIDE - CO2 24 mmol/L (21-32); CHLORIDE 101 mmol/L (101-111); CREATININE 0.5 mg/dL (0.4-1.0); GFR - MDRD 141 (>89); GLUCOSE 90 mg/dL (70-100); PHOSPHORUS 3.1 mg/dL (2.5-4.6); SODIUM 138 mmol/L (135-145)
[2019-03-22 01:12] LABS: BILIRUBIN,URINE NEGATIVE (NEGATIVE); GLUCOSE, URINE (UA) NEGATIVE (NEGATIVE); KETONES,URINE (UA) NEGATIVE (NEGATIVE); LEUKOCYTE ESTERASE, URINE NEGATIVE (NEGATIVE); NITRITE,URINE NEGATIVE (NEGATIVE); OCCULT BLOOD,URINE NEGATIVE (NEGATIVE); PROTEIN,URINE NEGATIVE (NEGATIVE); UROBILINOGEN,URINE 0.2 (NORMAL) E.U./dL (NORMAL)
[2019-03-22 01:15] LABS: CLARITY,URINE CLEAR (CLEAR); HCG UR QUAL NEGATIVE
[2019-03-22 01:20] LABS: AMPHETAMINE SCREEN,URINE NEGATIVE (NEGATIVE); BENZODIAZEPINES SCREEN, URINE NEGATIVE (NEGATIVE); COCAINE SCREEN URINE NEGATIVE (NEGATIVE); METHADONE SCREEN, URINE NEGATIVE (NEGATIVE); METHAMPHETAMINES SCREEN, URINE NEGATIVE (NEGATIVE); OPIATE SCREEN, URINE NEGATIVE (NEGATIVE); TRICYCLIC ANTIDEPRESSANT,URINE NEGATIVE (NEGATIVE)
[2019-03-22 01:21] LABS: OXYCODONE SCREEN, URINE NEGATIVE (NEGATIVE); PROPOXYPHENE SCREEN, URINE NEGATIVE (NEGATIVE)
[2019-03-22] MEDS ORDERED: POTASSIUM CHLORIDE 20 MEQ TABLET PO ONE (01:31)
--- NOTE | 2019-03-22 02:23 | XRAY Report ---
Reason: cough Procedure Date: 03/22/2019 Accession Number: [id number] / [id number] Procedure: XR - Chest 2 View X-Ray CPT Code: 72614 FULL RESULT: EXAM: CHEST RADIOGRAPHY EXAM DATE: 03/22/2019 02:02 AM. CLINICAL HISTORY: Cough. COMPARISON: CHEST ANGIO 05/03/2017 11:12 PM. TECHNIQUE: 2 views. FINDINGS: Lungs/Pleura: No focal opacities evident. No pleural effusion. No pneumothorax. Normal volumes. Mediastinum: Heart and mediastinal contours are unremarkable. Other: None. IMPRESSION: Normal 2-view chest radiography. RADIA
[2019-03-22 04:48] VITALS: BP 102/63
== END 2019-03-22 04:48 | disposition home or self-care (01) ==
LOC: EDUNIT# → ED 00:21
DX: R00.2 Palpitations (principal); F17.200 Nicotine dependence, unspecified, uncomplicated
CPT/HCPCS: 36415; 71046; 80048; 80320; 81003; 81025; 83735; 84100; 84443; 85025; 93005; 99283; 99284; A9270; 80306; 81001; 87086

== ENCOUNTER 2019-04-21 03:23 | Outpatient (CLI) | payer OTHER | END 2019-04-21 03:24 | disposition EMS.NT | LOC: EMS 03:23 | PROVIDERS: ATTEND Surgery | DX: R06.02 Shortness of breath (principal) ==

== ENCOUNTER 2019-05-20 09:21 | Outpatient (CLI) | payer OTHER ==
[~2019-05-20 09:21] MED LIST: ALBUTEROL NEB 2.5 MG/3 ML INH SCH
== END 2019-05-20 09:22 | disposition home or self-care (01) ==
LOC: RT 09:21
PROVIDERS: ATTEND Family Medicine
DX: R06.00 Dyspnea, unspecified (principal)
CPT/HCPCS: 94010

== ENCOUNTER 2019-06-04 21:37 | Emergency (ER) | payer OTHER ==
--- NOTE | 2019-06-04 22:12 | ED Physician Documentation ---
History of Present Illness - Stated complaint Stated Complaint: CALF PX/TINGLY HAND - Chief complaint Chief Complaint: General - History obtained from History obtained from: Patient - History of Present Illness Timing: Yesterday - Additonal information Additional information: This is a 33-year-old woman who presents with her complaints that she was having some calf pain and foot tingling for about the past 12 hours. There was no known injury. She actually went to the walk-in clinic yesterday and was put on metronidazole for bacterial vaginosis and the symptoms started about 8 hours after taking that so she was concerned it might be a reaction to that. Her stomach got a little bit upset but she never vomited. She describes a tingly sensation on the bottom of her foot and across her toes. Denies history of diabetes. She has not noted any swelling in the leg and it looks normal to her. No history of DVT. She just started her menstrual cycle today and denies . She was seen at [facility] about a week ago had x-rays of her back for some back pain and was told she had degenerative joint joint disease and she has a follow-up appointment with her primary care provider coming up next week. She has not seen any rash. She does have a tattoo on that leg but it was done in 2007. She has experienced some left hand numbness and tingling very fleetingly through the day today but the foot tingling has been persistent. She has not noted any difficulty ambulating. 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 She does have some chronic nasal stuffiness but is not taking any medications for that. Review of Systems Constitutional: denies: Fever Nose: reports: Congestion (Chronic) Throat: denies: Sore throat : denies: Dysuria, Now EGA Skin: denies: Rash Musculoskeletal: reports: Back pain. denies: Extremity swelling Neurologic: reports: Other (Tingling to the bottom of the left foot). 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 HEENT: Chronic sinusitis - Past Surgical History Past Surgical History: No - Present Medications Home Medications: Ambulatory Orders Medication Instructions Recorded Confirmed Esomeprazole Magnesium [Nexium] 40 mg PO BID 05/03/17 05/03/17 Montelukast [Singulair] 10 mg PO QPM 05/03/17 05/03/17 Albuterol Sulfate [Proair Hfa 2 puffs INH Q4H PRN #1 inhaler 05/04/17 Inhaler] predniSONE [Deltasone] 60 mg PO DAILY 5 Days tablet 05/04/17 LORazepam [Lorazepam] 0.5 - 1 mg PO QPM #14 tablet 04/17/18 - Allergies Allergies/Adverse Reactions: Allergies Allergy/AdvReac Type Severity Reaction Status Date / Time amoxicillin Allergy Unknown Verified 06/04/19 21:44 Cephalosporins Allergy Rash Verified 06/04/19 21:44 - Social History Does the pt smoke?: Yes Smoking Status: Current every day smoker Does the pt drink ETOH?: Yes Does the pt have substance abuse?: No - Immunizations Immunizations are current?: Yes - POLST Patient has POLST: No PD ED PE NORMAL - Vitals Vital signs reviewed: Yes - General General: Alert and oriented X 3, No acute distress, Well developed/nourished - HEENT HEENT: Atraumatic, PERRL, EOMI, Moist mucous membranes - Neck Neck: Supple, no meningeal sign, No adenopathy, Thyroid normal - Respiratory Respiratory: No respiratory distress - Derm Derm: Normal color, Warm and dry, No rash - Extremities Extremities: No tenderness to palpate, No edema, No calf tenderness / cord - Neuro Neuro: Alert and oriented X 3, information technology advisor 2-12 intact, No motor deficit, No sensory deficit, Normal speech, Other (Patient is ambulatory without foot drop. She has downgoing Babinski bilaterally 2+ Achilles and quadricep reflexes bilaterally.) - Psych Psych: Normal mood, Normal affect Results - Vitals Vitals: Vital Signs - 24 hr 06/04/19 21:40 Temperature 36.5 C Heart Rate 66 Respiratory 16 Rate Blood Pressure 134/84 H O2 Saturation 100 Oxygen O2 Source Room air PD MEDICAL DECISION MAKING - ED course Complexity details: d/w patient, d/w family ED course: Patient is having some paresthesias on the bottom of the left foot. She did spend some time yesterday with her feet tucked up underneath of her on the couch watching a movie with a friend. I suspect that this is from some nerve impingement And reactive paresthesias related to that. Recommended ibuprofen [id number]. There is no evidence of DVT or more serious neurological concern. Follow-up with your primary care provider as scheduled and avoid talking her legs up underneath of her or sitting in any prolonged position with her knees bent. Departure - Departure Disposition: 01 Home, Self Care Clinical Impression: Distal paresthesia Condition: Good Instructions: ED Paraesthesias Follow-Up: JEANNIE TOUSSAINT, [Primary Care Provider] - Comments: Avoid sitting in any prolonged position with your knees bent or legs crossed. Avoid sitting with your legs tucked up underneath of you. Take ibuprofen 3 to 4 tablets every 8 hours with food and follow-up with your primary care provider as scheduled next week. Return for reevaluation if the numbness is spreading or you develop weakness particularly walking with tripping on your toe.
[2019-06-04 22:26] VITALS: BP 128/82
== END 2019-06-04 22:24 | disposition home or self-care (01) ==
LOC: ED 21:37
DX: R20.2 Paresthesia of skin (principal); F17.200 Nicotine dependence, unspecified, uncomplicated
CPT/HCPCS: 99281; 99282

== ENCOUNTER 2019-06-08 05:28 | Outpatient (CLI) | payer OTHER | END 2019-06-08 05:29 | disposition critical access hospital (66) | LOC: EMS 05:28 | PROVIDERS: ATTEND Surgery | DX: R07.9 Chest pain, unspecified (principal) | CPT/HCPCS: A0425; A0427 ==

== ENCOUNTER 2019-06-08 05:49 | Emergency (ER) | payer OTHER ==
[2019-06-08] MEDS ORDERED: SODIUM CHLORIDE 0.9% 1,000 ML IV STA (05:55)
[2019-06-08] MEDS ORDERED: LORazepam 2 MG/ML VIAL IVP STA (05:56)
--- NOTE | 2019-06-08 05:58 | ED Physician Documentation ---
History of Present Illness - Stated complaint Stated Complaint: CP - Additonal information Additional information: This is a 33-year-old female presents with racing heart and and chest pain. Patient was at home 1 hour ago and she woke up and had some chest pain which was on her left side, she also like heart was racing. She has had this episode before and she has had a Holter monitor which was only no known cardiac disease. EMS was called and when they arrived she initially was in a sinus tachycardia, in route and her heart rate went up to 180, and they thought it may be a SVT, so she is given 6 mill grams of adenosine which temporarily slowed her rate down and then it returned, they gave 12 mg of adenosine which again slowed her heart rate down and then slowly cut back up. Patient currently is having more mild pain, no shortness of breath. She denies fever. She was seen recently in the emergency department for leg pain and had a DVT study done which was negative. 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 HEENT: Chronic sinusitis - Past Surgical History Past Surgical History: No - Present Medications Home Medications: Ambulatory Orders Medication Instructions Recorded Confirmed Metronidazole 06/08/19 - Allergies Allergies/Adverse Reactions: Allergies Allergy/AdvReac Type Severity Reaction Status Date / Time amoxicillin Allergy Unknown Verified 06/08/19 05:57 Cephalosporins Allergy Rash Verified 06/08/19 05:57 - Social History Does the pt smoke?: Yes Smoking Status: Current every day smoker Does the pt drink ETOH?: Yes Does the pt have substance abuse?: No - Immunizations Immunizations are current?: Yes - POLST Patient has POLST: No PD ED PE NORMAL - Vitals Vital signs reviewed: Yes - General General: Alert and oriented X 3 - HEENT HEENT: PERRL - Neck Neck: Supple, no meningeal sign - Cardiac Cardiac: No murmur, Other (Tachycardic to 120 on my exam, regular rhythm) - Respiratory Respiratory: No respiratory distress, Clear bilaterally - Abdomen Abdomen: Soft, Non tender, Non distended - Derm Derm: Warm and dry - Extremities Extremities: No deformity - Neuro Neuro: Alert and oriented X 3 Results - Vitals Vitals: Vital Signs - 24 hr 06/08/19 06/08/19 06/08/19 06:27 06:30 07:00 Heart Rate 84 72 71 Respiratory 11 L 14 16 Rate Blood Pressure 125/92 H 116/87 H 121/84 H O2 Saturation 99 98 98 06/08/19 07:36 Heart Rate 69 Respiratory 18 Rate Blood Pressure 102/72 O2 Saturation 97 Oxygen O2 Source Room air - EKG (time done) 5:56 Other comments: Other comments (Rate 87, rhythm sinus, axis normal. There is no ST segment elevation orNo obvious ST depression. There is some motion artifact which obscures fine detailed evaluation. Intervals are within normal limits.) 7:15 Other comments: Other comments (Rate 64, rhythm sinus, axis normal. There is no ST segment elevation or depression, no abnormal T wave inversions, intervals are within normal limits.) - Labs Labs: Laboratory Tests 06/08/19 06/08/19 06/08/19 06:00 06:00 06:00 WBC 7.6 RBC 4.37 Hgb 12.8 Hct 38.0 MCV 87.0 MCH 29.3 MCHC 33.7 RDW 12.2 Plt Count 308 MPV 9.8 Neut # (Auto) 3.1 Lymph # (Auto) 3.7 H [place] # (Auto) 0.7 Eos # (Auto) 0.1 Baso # (Auto) 0.0 Absolute Nucleated RBC 0.00 Nucleated RBC % 0.0 Sodium 140 Potassium 3.3 L Chloride 105 Carbon Dioxide 20 L Anion Gap 15.0 H BUN 15 Creatinine 0.6 Estimated GFR (MDRD) 114 Glucose 109 H Calcium 10.4 H Total Bilirubin 1.6 H AST 28 ALT 21 Alkaline Phosphatase 36 L Troponin I High Sens 2.3 Total Protein 8.3 H Albumin 5.1 Globulin 3.2 Albumin/Globulin Ratio 1.6 Lipase 45 Serum HCG, Qual 06/08/19 06:00 WBC RBC Hgb Hct MCV MCH MCHC RDW Plt Count MPV Neut # (Auto) Lymph # (Auto) [place] # (Auto) Eos # (Auto) Baso # (Auto) Absolute Nucleated RBC Nucleated RBC % Sodium Potassium Chloride Carbon Dioxide Anion Gap BUN Creatinine Estimated GFR (MDRD) Glucose Calcium Total Bilirubin AST ALT Alkaline Phosphatase Troponin I High Sens Total Protein Albumin Globulin Albumin/Globulin Ratio Lipase Serum HCG, Qual NEGATIVE - Rads (name of study) CXR Radiology: Other (Normal chest) PD MEDICAL DECISION MAKING - ED course Complexity details: considered differential (Dysrhythmia, SVT, sinus tachycardia, anxiety, electrolyte imbalance, ACS, Pneumothorax, pneumonia, pulmonary embolism) ED course: Patient presents and she is tachycardic, she has a sinus tachycardia in the monitor at around 120 bpm, EKG is obtained which shows a sinus tachycardia without signs of dysrhythmia or obvious ischemia. Patient was given fluids, 0.5 mg dose of Ativan, and was observed, her heart rate spontaneously improved to the 80s. Repeat EKG at this rate again shows a sinus rhythm, with no signs of ischemia or dysrhythmia. Specifically no signs of ARVD, [id number], hypertrophic cardomyopathy, or prolonged QT. Reviewing the strips from EMS, when her heart rate was in the 160s, it is unclear to me whether she is in a sinus tachycardia or a SVT, the baseline wander from patient shaking makes it hard to evaluate. Patient states that she has had episodes of palpitations in the past, she had a Holter monitor which was negative but she did not have episodes of palpitations while she was being monitored. I discussed with her that she may have had an SVT today, but given that her labs are reassuring, her chest x-ray is negative, her troponin is negative, Her presentationand risk factors makes ACS highly unlikely and she is now feeling well and asymptomatic, think that she is appropriate for outpatient follow-up. Given the resolution of her symptoms, pulmonary embolism extremely unlikely, she has no signs of DVT. I discussed it may be worthwhile considering another Holter monitor given the patient is having recurrent symptoms. I also discussed vagal maneuvers if patient has recurrence of her symptoms, and discussed with her strict return precautions. Patient agreed this plan was discharged home. Departure - Departure Disposition: 01 Home, Self Care Clinical Impression: Chest pain Qualifiers: Chest pain type: unspecified Qualified Code(s): R07.9 - Chest pain, unspecified Condition: Good Instructions: ED Chest Pain Atypical Unkn Cause Follow-Up: JEANNIE TOUSSAINT DO [Primary Care Provider] - (For follow up on chest pain, symptoms, and discussion of repeat holter monitor) Comments: You were seen today for chest pain and fast heart rate. Your heart rate has r eturned to normal, and we do not see signs of an emergent cause of your chest pain on your chest x-ray. If you develop new chest pain, palpitations, difficulty breathing, or other concerning symptoms please return to the emergency department. Otherwise follow-up with your primary care provider. Discharge Date/Time: 06/08/19 07:48
[2019-06-08 06:14] LABS: BASOPHILS % (AUTO) 0.4 %; EOSINOPHILS # (AUTO) 0.1 10^3/uL (0.0-0.7); EOSINOPHILS % (AUTO) 0.9 %; HGB - HEMOGLOBIN 12.8 g/dL (12.0-16.0); LYMPHOCYTES # (AUTO) 3.7 10^3/uL (1.5-3.5); LYMPHOCYTES % (AUTO) 48.5 %; MEAN CORPUSCULAR HEMOGLOBIN 29.3 pg (27.0-31.0); MEAN CORPUSCULAR HGB CONC 33.7 g/dL (32.0-36.0); MEAN PLATELET VOLUME 9.8 fL (7.9-10.8); MONOCYTES # (AUTO) 0.7 10^3/uL (0.0-1.0); MONOCYTES % (AUTO) 8.7 %; NEUTROPHILS # (AUTO) 3.1 10^3/uL (1.5-6.6); NEUTROPHILS % (AUTO) 41.4 %; PLT - PLATELET COUNT 308 10^3/uL (130-450); RED BLOOD COUNT 4.37 10^6/uL (4.20-5.40); RED CELL DISTRIBUTION WIDTH 12.2 % (12.0-15.0); WHITE BLOOD COUNT 7.6 x10^3/uL (4.8-10.8)
--- NOTE | 2019-06-08 06:25 | XRAY Report ---
Reason: Chest Pain Procedure Date: 06/08/2019 Accession Number: [id number] / [id number] Procedure: XR - Chest 1 View X-Ray CPT Code: 81023 FULL RESULT: EXAM: CHEST RADIOGRAPHY EXAM DATE: 06/08/2019 06:19 AM. CLINICAL HISTORY: Chest Pain. COMPARISON: CHEST 2 VIEW 03/22/2019 1:45 AM. TECHNIQUE: 1 view. FINDINGS: Lungs/Pleura: No focal opacities evident. No pleural effusion. No pneumothorax. Mediastinum: Within exam limitations, the cardiomediastinal contour is normal. Other: None. IMPRESSION: Normal single view chest. RADIA
[2019-06-08 06:29] LABS: ALBUMIN 5.1 g/dL (3.2-5.5); ALBUMIN/GLOBULIN RATIO 1.6 (1.0-2.2); BILIRUBIN,TOTAL 1.6 mg/dL (0.2-1.0); CALCIUM 10.4 mg/dL (8.5-10.3); CREATININE 0.6 mg/dL (0.4-1.0); TOTAL PROTEIN 8.3 g/dL (6.7-8.2)
[2019-06-08 06:53] LABS: HCG,QUALITATIVE BLOOD NEGATIVE
[2019-06-08 07:37] VITALS: BP 102/72
== END 2019-06-08 07:48 | disposition home or self-care (01) ==
LOC: EDUNIT# → ED 05:49
DX: R07.9 Chest pain, unspecified (principal); R00.0 Tachycardia, unspecified; F17.200 Nicotine dependence, unspecified, uncomplicated
CPT/HCPCS: 36415; 71045; 80053; 83690; 84484; 84703; 85025; 93005; 96361; 96374; 99284; J2060

== ENCOUNTER 2019-08-08 05:26 | Emergency (ER) | payer OTHER ==
[2019-08-08 06:16] LABS: BASOPHILS % (AUTO) 0.5 %; EOSINOPHILS # (AUTO) 0.1 10^3/uL (0.0-0.7); EOSINOPHILS % (AUTO) 1.6 %; HGB - HEMOGLOBIN 11.3 g/dL (12.0-16.0); LYMPHOCYTES # (AUTO) 2.3 10^3/uL (1.5-3.5); LYMPHOCYTES % (AUTO) 42.2 %; MEAN CORPUSCULAR HEMOGLOBIN 29.3 pg (27.0-31.0); MEAN CORPUSCULAR HGB CONC 32.5 g/dL (32.0-36.0); MEAN CORPUSCULAR VOLUME 90.2 fL (81.0-99.0); MEAN PLATELET VOLUME 9.8 fL (7.9-10.8); MONOCYTES # (AUTO) 0.5 10^3/uL (0.0-1.0); MONOCYTES % (AUTO) 8.5 %; NEUTROPHILS # (AUTO) 2.6 10^3/uL (1.5-6.6); PLT - PLATELET COUNT 255 10^3/uL (130-450); RED BLOOD COUNT 3.86 10^6/uL (4.20-5.40); RED CELL DISTRIBUTION WIDTH 12.7 % (12.0-15.0); WHITE BLOOD COUNT 5.6 x10^3/uL (4.8-10.8)
[2019-08-08 06:27] LABS: ALBUMIN 4.2 g/dL (3.2-5.5); ALBUMIN/GLOBULIN RATIO 1.3 (1.0-2.2); BILIRUBIN,TOTAL 1.5 mg/dL (0.2-1.0); CALCIUM 9.5 mg/dL (8.5-10.3); CREATININE 0.5 mg/dL (0.4-1.0); TOTAL PROTEIN 7.4 g/dL (6.7-8.2)
[2019-08-08] MEDS ORDERED: POTASSIUM CHLORIDE 20 MEQ TABLET PO STA (06:34)
--- NOTE | 2019-08-08 06:39 | ED Physician Documentation ---
PD HPI CHEST PAIN - Stated complaint Stated Complaint: UPPER ARM PX,CHEST PX,N,D - Chief complaint Chief Complaint: Cardiac - History obtained from History obtained from: Patient, Family - History of Present Illness Timing - onset: Enter time (2099), Last night Timing - onset during: Rest Timing - duration: Hours Timing - details: Gradual onset, Still present Quality: Aching, Sharp Location: Substernal, Left chest Radiation: Left upper extremity Improved by: Nothing Worsened by: Other (nothing) Associated symptoms: Palpitations. No: Shortness of air, Diaphoresis, Nausea, Vomiting, Feeling faint / dizzy, General Weakness, Cough Similar symptoms before: Diagnosis (atypical chest pain) Recently seen: Not recently seen - Additional information Additional information: 33-year-old female who has been having episodes of chest pain for the past year has developed chest pain beginning approximately 9 PM last night and she has pain radiating down her left arm. She denies any shortness of breath diaphoresis or lightheaded or dizziness. She has had the symptoms in the past with lightheadedness she is had these symptoms in the past with a feeling of tachycardia and she has previously worn a Holter monitor for evaluation of this. She did not have episodes while she was wearing the Holter monitor. She was last seen here in the emergency department 6 weeks ago diagnosed with atypical chest pain. Review of Systems Constitutional: denies: Fever Eyes: denies: Decreased vision Ears: denies: Ear pain Nose: denies: Rhinorrhea / runny nose, Congestion Throat: denies: Sore throat Cardiac: reports: Chest pain / pressure, Palpitations. denies: Pedal edema, Calf pain Respiratory: denies: Dyspnea, Cough, Wheezing GI: reports: Nausea. 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 HEENT: Chronic sinusitis - Past Surgical History Past Surgical History: No - Present Medications Home Medications: Ambulatory Orders Medication Instructions Recorded Confirmed Metronidazole 06/08/19 Potassium Chloride 10 meq PO DAILY #30 tablet.er 08/08/19 - Allergies Allergies/Adverse Reactions: Allergies Allergy/AdvReac Type Severity Reaction Status Date / Time amoxicillin Allergy Unknown Verified 08/08/19 05:38 Cephalosporins Allergy Rash Verified 08/08/19 05:38 - Social History Does the pt smoke?: Yes Smoking Status: Current every day smoker Does the pt drink ETOH?: Yes Does the pt have substance abuse?: No - Immunizations Immunizations are current?: Yes - POLST Patient has POLST: No PD ED PE NORMAL - Vitals Vital signs reviewed: Yes (hypertensive mild ) - General General: Alert and oriented X 3, No acute distress, Well developed/nourished - HEENT HEENT: Atraumatic, PERRL, EOMI, Ears normal, Moist mucous membranes, Pharynx benign, Dentition benign - Neck Neck: Supple, no meningeal sign, No bony TTP - Cardiac Cardiac: RRR, No murmur - Respiratory Respiratory: No respiratory distress, Clear bilaterally, Other (no chest wall tenderness ) - Abdomen Abdomen: Soft, Non tender - Back Back: No CVA TTP, No spinal TTP - Derm Derm: Normal color, Warm and dry, No rash - Extremities Extremities: No deformity, No edema - Neuro Neuro: Alert and oriented X 3, igniter assembler 2-12 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, No motor deficit, No sensory deficit, Normal speech Eye Opening: Spontaneous Motor: Obeys Commands Verbal: Oriented GCS Score: 15 - Psych Psych: Normal mood, Normal affect Results - Vitals Vitals: Vital Signs - 24 hr 08/08/19 08/08/19 08/08/19 05:30 06:30 06:56 Temperature 36.9 C Heart Rate 74 73 63 Respiratory 15 16 14 Rate Blood Pressure 124/97 H 110/67 112/78 Blood Pressure 142/97 H [Left] Blood Pressure 124/97 H [Right] O2 Saturation 100 100 100 Oxygen O2 Source Room air - EKG (time done) 0536 Rate: Rate (enter#) (61) Rhythm: NSR Computer interpretation: Agree with computer - Labs Labs: Laboratory Tests 08/08/19 08/08/19 08/08/19 05:46 05:46 05:46 WBC 5.6 RBC 3.86 L Hgb 11.3 L Hct 34.8 L MCV 90.2 MCH 29.3 MCHC 32.5 RDW 12.7 Plt Count 255 MPV 9.8 Neut # (Auto) 2.6 Lymph # (Auto) 2.3 [place] # (Auto) 0.5 Eos # (Auto) 0.1 Baso # (Auto) 0.0 Absolute Nucleated RBC 0.00 Nucleated RBC % 0.0 Sodium 139 Potassium 3.1 L Chloride 102 Carbon Dioxide 28 Anion Gap 9.0 BUN 7 Creatinine 0.5 Estimated GFR (MDRD) 141 Glucose 86 Calcium 9.5 Total Bilirubin 1.5 H AST 19 ALT 17 Alkaline Phosphatase 34 L Troponin I High Sens < 2.3 L Total Protein 7.4 Albumin 4.2 Globulin 3.2 Albumin/Globulin Ratio 1.3 Lipase 41 PD MEDICAL DECISION MAKING - ED course Complexity details: reviewed old records, reviewed results, re-evaluated patient, considered differential, d/w patient, d/w family ED course: 33-year-old female with frequent visits to the emergency department for chest pain and palpitations has a negative work-up again today with no findings with the exception of some mild hypokalemia. She is administered 20 mEq of potassium chloride for treatment of this. I have discussed with the patient the nature of panic attack and anxiety and she does have stress in her life and we have discussed that this is a diagnosis of exclusion. She will follow-up with her primary and we will provide a supplement for her potassium as an review of her chart she has had low potassium in her blood work for the past 2 years. Departure - Departure Disposition: 01 Home, Self Care Clinical Impression: Atypical chest pain, Hypokalemia Condition: Stable Instructions: ED Chest Pain Atypical Unkn Cause, ED Potassium Deficiency Follow-Up: JEANNIE TOUSSAINT DO [Primary Care Provider] - Prescriptions: Potassium Chloride 10 meq PO DAILY #30 tablet.er
--- NOTE | 2019-08-08 07:07 | XRAY Report ---
Reason: chest pain Procedure Date: 08/08/2019 Accession Number: [id number] / [id number] Procedure: XR - Chest 2 View X-Ray CPT Code: 58750 Final Report FULL RESULT: EXAM: CHEST RADIOGRAPHY EXAM DATE: 08/08/2019. CLINICAL HISTORY: Chest pain. COMPARISON: AP portable chest on 06/08/2019. PA and lateral chest on 03/22/2019. TECHNIQUE: PA and lateral views. FINDINGS: Lungs/Pleura: Normal vasculature. The lungs are clear. No pleural fluid or pneumothorax. Mediastinum: Normal cardiac and mediastinal contours. Bones: Normal. IMPRESSION: Normal 2-view chest radiography. No change from prior examinations. RADIA
[2019-08-08 07:51] VITALS: BP 117/83
== END 2019-08-08 07:49 | disposition home or self-care (01) ==
LOC: ED 05:26
DX: R07.89 Other chest pain (principal); E87.6 Hypokalemia; F17.200 Nicotine dependence, unspecified, uncomplicated
CPT/HCPCS: 36415; 71046; 80053; 83690; 84484; 85025; 93005; 99284; A9270

== ENCOUNTER 2019-10-26 11:39 | Emergency (ER) | payer OTHER ==
[2019-10-26] MEDS ORDERED: BUTALB/ACETAM/CAFF 50/325/40MG TABLET PO STA (12:50)
--- NOTE | 2019-10-26 12:53 | ED Physician Documentation ---
PD HPI HEADACHE - Stated complaint Stated Complaint: HEADACHE/EYE PX - Chief complaint Chief Complaint: Heent - History obtained from History obtained from: Patient - History of Present Illness Timing - onset: How many days ago (3) Timing - onset during: Rest Timing - duration: Days (3) Timing - details: Gradual onset, Waxing and waning Pain level max: 7 Pain level now: 6 Location: Right Quality: Throbbing, Aching. No: Thunderclap Associated symptoms: Eye pain. No: Fever, Stiff neck, Nausea, Vomiting, Weakness, Numbness, Syncope, Seizure, Vision changes Improved by: Rest, Dark room, Quiet Worsened by: Light, Noise Contributing factors: No: Anticoagulated, Possible carbon monoxide, Hypertension, Recent illness, Trauma Similar symptoms before: Has not had sx before Recently seen: Not recently seen - Additional information Additional information: family history of migraines Review of Systems Ten Systems: 10 systems reviewed and negative Constitutional: denies: Fever, Chills, Myalgias Eyes: reports: Photophobia. 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 : None HEENT: Chronic sinusitis Psych: Depression Musculoskeletal: None - Past Surgical History Past Surgical History: No - Present Medications Home Medications: Ambulatory Orders Medication Instructions Recorded Confirmed Butalb/Acetaminophen/Caffeine 1 each PO Q6H PRN #10 capsule 10/26/19 [Fioricet 50-300-40 mg Capsule] Cetirizine HCl [Zyrtec] 10 mg PO DAILY 10/26/19 10/26/19 - Allergies Allergies/Adverse Reactions: Allergies Allergy/AdvReac Type Severity Reaction Status Date / Time amoxicillin Allergy Unknown Verified 10/26/19 11:49 Cephalosporins Allergy Rash Verified 10/26/19 11:49 - Social History Does the pt smoke?: Yes Smoking Status: Current every day smoker Does the pt drink ETOH?: Yes Does the pt have substance abuse?: No - Immunizations Immunizations are current?: Yes - POLST Patient has POLST: No PD ED PE NORMAL - Vitals Vital signs reviewed: Yes - General General: Alert and oriented X 3, No acute distress, Well developed/nourished - HEENT HEENT: Atraumatic, PERRL, EOMI, Ears normal, Moist mucous membranes, Other (No papilledema) - Neck Neck: Supple, no meningeal sign, No bony TTP - Cardiac Cardiac: RRR, Strong equal pulses - Respiratory Respiratory: No respiratory distress, Clear bilaterally - Abdomen Abdomen: Soft, Non tender, Non distended - Back Back: No spinal TTP - Derm Derm: Warm and dry - Extremities Extremities: No edema - Neuro Neuro: Alert and oriented X 3, business office 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 She was given Fioricet and headache improved. No evidence of subarachnoid hemorrhage. No recent illnesses. No congestion. No evidence of sinusitis. No evidence of orbital cellulitis. No papilledema. Patient counseled regarding signs and symptoms for which I believe and urgent re-evaluation would be necessary. Patient with good understanding of and agreement to plan and is comfortable going home at this time This document was made in part using voice recognition software. While efforts are made to proofread this document, sound alike and grammatical errors may occur. Departure - Departure Disposition: 01 Home, Self Care Clinical Impression: Headache Qualifiers: Headache type: unspecified Headache chronicity pattern: acute headache Intractability: not intractable Qualified Code(s): R51 - Headache Condition: Good Instructions: ED Cephalgia Unspecified Follow-Up: JEANNIE TOUSSAINT DO [Primary Care Provider] - As Needed Prescriptions: Butalb/Acetaminophen/Caffeine [Fioricet 50-300-40 mg Capsule] 1 each PO Q6H PRN #10 capsule PRN Reason: headache Comments: Return if you worsen. Follow-up with your doctor for further care. This does appear that you likely had a migraine headache today.
[2019-10-26 13:38] VITALS: BP 107/73
== END 2019-10-26 13:38 | disposition home or self-care (01) ==
LOC: ED 11:39
DX: R51 Headache (principal); F17.200 Nicotine dependence, unspecified, uncomplicated
CPT/HCPCS: 99282; 99284; A9270

== ENCOUNTER 2019-12-12 15:58 | Emergency (ER) | payer OTHER ==
[2019-12-12] MEDS ORDERED: SODIUM CHLORIDE 0.9% 1,000 ML IV ONE (16:23)
--- NOTE | 2019-12-12 16:29 | ED Physician Documentation ---
History of Present Illness - Stated complaint Stated Complaint: TINGLING LT FOOT / HAND, CP, DIZZY - Chief complaint Chief Complaint: General - Additonal information Additional information: Patient comes emergency department complaining of left hand and foot tingling intermittently for the last approximately 1 year. She states that she cannot really identify any specific triggers for this. She does not have any neck or back problems that she knows of. She states she now has a headache which is mostly concentrated on the left side. She states she had a right-sided headache behind her eye couple of months ago and was told she had migraines, but that her "eye doctor" told her that she had pressure within her eye that was causing the pain. She states she was on eyedrops for this and that eventually got better. Patient states that she has not had any visual changes. No fevers or chills. No cough, shortness of breath, or chest pain. No abdominal pain, or vomiting. No dysuria. Patient states she is currently on her period and is not known to be . She states that part of the reason that she came in today was because she was making breakfast and began dancing around to music she was listening to and to begin to feel lightheaded and nauseated. She states that she has not really felt very good throughout the rest of the day. Patient states that she is not feeling lightheaded or nauseated right at this moment. Review of Systems Ten Systems: 10 systems reviewed and negative Constitutional: reports: Reviewed and negative Eyes: reports: Reviewed and negative Ears: reports: Reviewed and negative Nose: reports: Reviewed and negative Throat: reports: Reviewed and negative Cardiac: reports: Reviewed and negative Respiratory: reports: Reviewed and negative GI: reports: Nausea : reports: Reviewed and negative Skin: reports: Reviewed and negative Musculoskeletal: reports: Reviewed and negative Neurologic: reports: Reviewed and negative Psychiatric: reports: Reviewed and negative Endocrine: reports: Reviewed and negative Immunocompromised: reports: Reviewed and negative PD PAST MEDICAL HISTORY - Past Medical History Cardiovascular: Other Respiratory: None GI: GERD 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 cysts : None HEENT: Chronic sinusitis Psych: Depression Musculoskeletal: None - Past Surgical History Past Surgical History: No - Present Medications Home Medications: Ambulatory Orders Medication Instructions Recorded Confirmed Butalb/Acetaminophen/Caffeine 1 each PO Q6H PRN #10 capsule 10/26/19 [Fioricet 50-300-40 mg Capsule] Cetirizine HCl [Zyrtec] 10 mg PO DAILY 10/26/19 10/26/19 - Allergies Allergies/Adverse Reactions: Allergies Allergy/AdvReac Type Severity Reaction Status Date / Time amoxicillin Allergy Unknown Verified 12/12/19 16:03 Cephalosporins Allergy Rash Verified 12/12/19 16:03 - Social History Does the pt smoke?: Yes Smoking Status: Current every day smoker Does the pt drink ETOH?: Yes Does the pt have substance abuse?: No - Immunizations Immunizations are current?: Yes - POLST Patient has POLST: No PD ED PE NORMAL - Vitals Vital signs reviewed: Yes - General General: Alert and oriented X 3, No acute distress - HEENT HEENT: PERRL - Neck Neck: Supple, no meningeal sign - Cardiac Cardiac: RRR, No murmur - Respiratory Respiratory: No respiratory distress, Clear bilaterally - Abdomen Abdomen: Soft, Non tender, Non distended - Derm Derm: Normal color, Warm and dry, No rash - Extremities Extremities: No deformity, Normal ROM s pain, No edema, No calf tenderness / cord - Neuro Neuro: Alert and oriented X 3, project development leader 2-12 intact, No motor deficit, No sensory deficit, Normal speech - Psych Psych: Normal mood, Normal affect Results - Vitals Vitals: Vital Signs - 24 hr 12/12/19 15:59 Temperature 36.8 C Heart Rate 63 Respiratory 18 Rate Blood Pressure 137/88 H O2 Saturation 100 Oxygen O2 Source Room air - EKG (time done) 1610 Rate: Rate (enter#) (67) Rhythm: NSR [place]: Normal Intervals: Normal CA QRS: Normal Ischemia: Normal ST segments. No: T wave inversion Compare to prior EKG: Old EKG unavailable Computer interpretation: Agree with computer - Labs Labs: Laboratory Tests 12/12/19 12/12/19 12/12/19 16:55 16:55 17:07 WBC 7.2 RBC 3.71 L Hgb 11.3 L Hct 34.2 L MCV 92.2 MCH 30.5 MCHC 33.0 RDW 13.0 Plt Count 261 MPV 9.8 Neut # (Auto) 4.8 Lymph # (Auto) 1.8 [place] # (Auto) 0.5 Eos # (Auto) 0.0 Baso # (Auto) 0.0 Absolute Nucleated RBC 0.00 Nucleated RBC % 0.0 Sodium 136 Potassium 3.5 Chloride 102 Carbon Dioxide 26 Anion Gap 8.0 BUN 11 Creatinine 0.6 Estimated GFR (MDRD) 114 Glucose 108 H Calcium 9.1 Total Bilirubin 1.3 H AST 22 ALT 16 Alkaline Phosphatase 36 L Total Protein 7.1 Albumin 4.1 Globulin 3.0 Albumin/Globulin Ratio 1.4 Lipase 44 TSH 0.61 Urine Color Urine Clarity Urine pH Ur Specific [place] Urine Protein Urine Glucose (UA) Urine Ketones Urine Occult Blood Urine Nitrite Urine Bilirubin Urine Urobilinogen Ur Leukocyte Esterase Urine RBC Urine WBC Ur Squamous Epith Cells Urine Bacteria Ur Microscopic Review Urine Culture Comments Urine HCG, Qual 12/12/19 17:27 WBC RBC Hgb Hct MCV MCH MCHC RDW Plt Count MPV Neut # (Auto) Lymph # (Auto) [place] # (Auto) Eos # (Auto) Baso # (Auto) Absolute Nucleated RBC Nucleated RBC % Sodium Potassium Chloride Carbon Dioxide Anion Gap BUN Creatinine Estimated GFR (MDRD) Glucose Calcium Total Bilirubin AST ALT Alkaline Phosphatase Total Protein Albumin Globulin Albumin/Globulin Ratio Lipase TSH Urine Color YELLOW Urine Clarity CLEAR Urine pH 8.0 H Ur Specific [place] 1.015 Urine Protein NEGATIVE Urine Glucose (UA) NEGATIVE Urine Ketones NEGATIVE Urine Occult Blood SMALL H Urine Nitrite NEGATIVE Urine Bilirubin NEGATIVE Urine Urobilinogen 0.2 (NORMAL) Ur Leukocyte Esterase NEGATIVE Urine RBC 0-5 Urine WBC 0-3 Ur Squamous Epith Cells RARE Squamous Urine Bacteria None Seen Ur Microscopic Review INDICATED Urine Culture Comments NOT INDICATED Urine HCG, Qual NEGATIVE - Rads (name of study) ct head Radiology: Final report received, EMP read indepedently, See rad report (Final radiologist interpretation: Some subtle decreased attenuation in the right frontal white matter extending into the internal capsule as above. Although could be artifactual it is nonspecific and some underlying lesion and/or edema cannot be excluded. No mass-effect, midline shift, or evidence of intracranial hemorrhage. Would recommend further evaluation with MRI of the brain.) PD MEDICAL DECISION MAKING - ED course Complexity details: reviewed results, re-evaluated patient, considered differential, d/w patient ED course: Patient was worked up with labs, EKG, and CT scan of the head. She was treated for her headache with Toradol and Phenergan, and for her dizziness with IV fluids. Patient was found to be feeling somewhat better after this. She was found to have normal labs and UA, and was not . However, her CT scan of the head showed some subtle abnormalities frontal lobe, prompting the radiologi st to recommend MRI. Unfortunately, MRI was not available this evening from the emergency department, but I did advise the patient that she should bring her CT results when she sees her doctor in 4 days. I have noted that the radiologist report has also been CC'd to the patient's primary care physician Dr. Blackwood. I have discussed with the patient that it is very important that she brings up th is topic with Dr. Blackwood and that they begin the process of getting her set up for MRI, as the location of the findings and the symptoms that the patient is having are suspicious for relation to one another. Patient has expressed understanding and is in agreement with the plan. Her will drive her home. Departure - Departure Disposition: Home, Self Care Clinical Impression: Paresthesia of left arm and leg, Brain lesion Headache Qualifiers: Headache type: unspecified Headache chronicity pattern: acute headache Intractability: not intractable Qualified Code(s): R51 - Headache Condition: Fair Instructions: ED Cephalgia Unspecified, ED Paraesthesias Comments: Your labs look good. As we have discussed, the CT scan of your head shows some subtle findings in your right frontal lobe which could be incidental and represent artifact in the images, or could represent a brain lesion, either malignant or benign. As such, the radiologist has recommended that you get an MRI in the very near future to further evaluate this and determine whether these subtle findings are hvac sales representative of something significant or not. Given your symptoms, as we have discussed, this is certainly of concern. Please be sure to bring this up with your primary care physician when you are seen on Sunday. You have been given a copy of the radiologist's report on your CT scan below, and you should share this with your doctor when you go in. It is possible that the more acute symptoms that you have had today, including the dizziness and nausea, are related to something else, such as your body fighting off a viral infection. We have checked you for anemia, electrolyte abnormalities, and urinary tract infection, all of which are negative. EXAM: CT HEAD EXAM DATE: 12/12/2019 05:09 PM. CLINICAL HISTORY: Worsening tingling L arm/leg, now headache. COMPARISON: None. TECHNIQUE: Multiaxial CT images were obtained from the foramen magnum to the vertex. Reformats: Sagittal and coronal. IV contrast: None. In accordance with CT protocol optimization, one or more of the following dose reduction techniques were utilized for this exam: automated exposure control, adjustment of mA and/or KV based on patient size, or use of iterative reconstructive technique. FINDINGS: Parenchyma: No mass-effect or midline shift. There is subtle ill-defined decreased attenuation in the deep white matter of the right frontal lobe, certainly asymmetric compared to the left. Extends into the right centrum semiovale, colón radiata, and right internal capsule. Possibly present to a minimal degree on the left. Extraaxial Spaces: Normal for age. No subdural or epidural collections identified. Ventricles: Normal in size and position. Sinuses and Orbits: Imaged paranasal sinuses, orbits, and mastoids show no significant abnormality. Bones: No evidence of fracture or calvarial defect. Other: None. IMPRESSION: Some subtle decreased attenuation in the right frontal white matter extending into the internal capsule as above. Although could be artifactual, it is nonspecific and some underlying lesion and/or edema cannot be excluded. No mass-effect, midline shift, or evidence of intracranial hemorrhage. Would recommend further evaluation with MRI of the brain. [facility] Pump Stitcher: Reading Radiologist: Stephany Patterson DO Releasing Radiologist: Stephany Patterson DO Released Date Time: 12/12/19 1234
[2019-12-12] MEDS ORDERED: PROMETHAZINE INJ 12.5 MG in SODIUM CHLORIDE 0.9% 50 ML IV STA (16:31)
[2019-12-12] MEDS ORDERED: KETOROLAC 30 MG/ML VIAL IVP STA (16:31)
[2019-12-12 17:18] LABS: ALBUMIN 4.1 g/dL (3.2-5.5); ALBUMIN/GLOBULIN RATIO 1.4 (1.0-2.2); BILIRUBIN,TOTAL 1.3 mg/dL (0.2-1.0); CALCIUM 9.1 mg/dL (8.5-10.3); CREATININE 0.6 mg/dL (0.4-1.0); TOTAL PROTEIN 7.1 g/dL (6.7-8.2)
[2019-12-12 17:25] LABS: BASOPHILS % (AUTO) 0.4 %; EOSINOPHILS % (AUTO) 0.4 %; HGB - HEMOGLOBIN 11.3 g/dL (12.0-16.0); LYMPHOCYTES # (AUTO) 1.8 10^3/uL (1.5-3.5); LYMPHOCYTES % (AUTO) 25.4 %; MEAN CORPUSCULAR HEMOGLOBIN 30.5 pg (27.0-31.0); MEAN CORPUSCULAR VOLUME 92.2 fL (81.0-99.0); MEAN PLATELET VOLUME 9.8 fL (7.9-10.8); MONOCYTES # (AUTO) 0.5 10^3/uL (0.0-1.0); MONOCYTES % (AUTO) 6.7 %; NEUTROPHILS # (AUTO) 4.8 10^3/uL (1.5-6.6); NEUTROPHILS % (AUTO) 66.7 %; PLT - PLATELET COUNT 261 10^3/uL (130-450); RED BLOOD COUNT 3.71 10^6/uL (4.20-5.40); WHITE BLOOD COUNT 7.2 x10^3/uL (4.8-10.8)
--- NOTE | 2019-12-12 17:32 | CT Report ---
Reason: worsening tingling L arm/leg, now headache Procedure Date: 12/12/2019 Accession Number: [id number] / [id number] Procedure: CT - HEAD WO CPT Code: Final Report FULL RESULT: EXAM: CT HEAD EXAM DATE: 12/12/2019 05:09 PM. CLINICAL HISTORY: Worsening tingling L arm/leg, now headache. COMPARISON: None. TECHNIQUE: Multiaxial CT images were obtained from the foramen magnum to the vertex. Reformats: Sagittal and coronal. IV contrast: None. In accordance with CT protocol optimization, one or more of the following dose reduction techniques were utilized for this exam: automated exposure control, adjustment of mA and/or KV based on patient size, or use of iterative reconstructive technique. FINDINGS: Parenchyma: No mass-effect or midline shift. There is subtle ill-defined decreased attenuation in the deep white matter of the right frontal lobe, certainly asymmetric compared to the left. Extends into the right centrum semiovale, colón radiata, and right internal capsule. Possibly present to a minimal degree on the left. Extraaxial Spaces: Normal for age. No subdural or epidural collections identified. Ventricles: Normal in size and position. Sinuses and Orbits: Imaged paranasal sinuses, orbits, and mastoids show no significant abnormality. Bones: No evidence of fracture or calvarial defect. Other: None. IMPRESSION: Some subtle decreased attenuation in the right frontal white matter extending into the internal capsule as above. Although could be artifactual, it is nonspecific and some underlying lesion and/or edema cannot be excluded. No mass-effect, midline shift, or evidence of intracranial hemorrhage. Would recommend further evaluation with MRI of the brain. [facility]
[2019-12-12 17:36] LABS: BILIRUBIN,URINE NEGATIVE (NEGATIVE); GLUCOSE, URINE (UA) NEGATIVE (NEGATIVE); KETONES,URINE (UA) NEGATIVE (NEGATIVE); LEUKOCYTE ESTERASE, URINE NEGATIVE (NEGATIVE); NITRITE,URINE NEGATIVE (NEGATIVE); OCCULT BLOOD,URINE SMALL (NEGATIVE); PROTEIN,URINE NEGATIVE (NEGATIVE); UROBILINOGEN,URINE 0.2 (NORMAL) E.U./dL (NORMAL)
[2019-12-12 17:48] LABS: BACTERIA,URINE None Seen /HPF (None Seen); CLARITY,URINE CLEAR (CLEAR); HCG UR QUAL NEGATIVE; RBC,URINE 0-5 /HPF (0-5); SQUAMOUS EPITHELIAL CELL,UR RARE Squamous (<= Few)
[2019-12-12 18:22] VITALS: BP 134/83
== END 2019-12-12 18:24 | disposition home or self-care (01) ==
LOC: ED 15:58
DX: R20.2 Paresthesia of skin (principal); R90.89 Other abnormal findings on diagnostic imaging of central nervous system; R51 Headache; R42 Dizziness and giddiness; F17.200 Nicotine dependence, unspecified, uncomplicated
CPT/HCPCS: 36415; 70450; 81001; 81025; 83690; 93005; 96365; 96375; 99284; J7040; 80053; 81003; 84443; 85025; 87086

== ENCOUNTER 2019-12-25 09:29 | Emergency (ER) | payer OTHER ==
--- NOTE | 2019-12-25 09:52 | ED Physician Documentation ---
History of Present Illness - Stated complaint Stated Complaint: L SIDE NUMBNESS - History obtained from History obtained from: Patient - History of Present Illness Pain level max: 0 Pain level now: 0 - Additonal information Additional information: 34-year-old female presents to the emergency department with left-sided numbness for the past year. This is been intermittent. Nothing makes it better or worse. She had a minor abnormality on a head CT approximately a week ago, she is scheduled for an MRI of the brain next week. She states that the numbness felt worse today. No neck or back pain. No current headache. 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 : None HEENT: Chronic sinusitis Psych: Depression Musculoskeletal: None - Past Surgical History Past Surgical History: No - Present Medications Home Medications: Ambulatory Orders Medication Instructions Recorded Confirmed Butalb/Acetaminophen/Caffeine 1 each PO Q6H PRN #10 capsule 10/26/19 [Fioricet 50-300-40 mg Capsule] Cetirizine HCl [Zyrtec] 10 mg PO DAILY 10/26/19 10/26/19 - Allergies Allergies/Adverse Reactions: Allergies Allergy/AdvReac Type Severity Reaction Status Date / Time amoxicillin Allergy Unknown Verified 12/25/19 09:49 Cephalosporins Allergy Rash Verified 12/25/19 09:49 - Social History Does the pt smoke?: Yes Smoking Status: Current every day smoker Does the pt drink ETOH?: Yes Does the pt have substance abuse?: No - Immunizations Immunizations are current?: Yes - POLST Patient has POLST: No PD ED PE NORMAL - Vitals Vital signs reviewed: Yes - General General: Alert and oriented X 3, No acute distress, Well developed/nourished - HEENT HEENT: Atraumatic, PERRL, Ears normal, Moist mucous membranes, Pharynx benign - Neck Neck: Supple, no meningeal sign, No bony TTP - Cardiac Cardiac: RRR, Strong equal pulses - Respiratory Respiratory: No respiratory distress, Clear bilaterally - Abdomen Abdomen: Soft, Non tender, Non distended - Back Back: No spinal TTP - Derm Derm: Warm and dry - Extremities Extremities: Normal ROM s pain - Neuro Neuro: Alert and oriented X 3 - Psych Psych: Normal mood, Normal affect Results - Vitals Vitals: Vital Signs - 24 hr 12/25/19 12/25/19 12/25/19 09:44 12:47 13:20 Temperature 36.9 C 37.2 C Heart Rate 72 78 74 Respiratory 18 16 12 Rate Blood Pressure 149/90 H 136/78 H 121/82 H O2 Saturation 100 100 Oxygen O2 Source Room air - Labs Labs: Laboratory Tests 12/25/19 12/25/19 10:30 10:30 WBC 6.8 RBC 4.31 Hgb 13.2 Hct 39.6 MCV 91.9 MCH 30.6 MCHC 33.3 RDW 12.7 Plt Count 306 MPV 10.0 Neut # (Auto) 4.5 Lymph # (Auto) 1.7 [place] # (Auto) 0.6 Eos # (Auto) 0.0 Baso # (Auto) 0.0 Absolute Nucleated RBC 0.00 Nucleated RBC % 0.0 Sodium 138 Potassium 3.1 L Chloride 104 Carbon Dioxide 26 Anion Gap 8.0 BUN 9 Creatinine 0.6 Estimated GFR (MDRD) 114 Glucose 80 Calcium 9.1 Phosphorus 2.6 Magnesium 2.3 - Rads (name of study) Brain MRI with and without Radiology: Prelim report reviewed, EMP read contemporaneously, See rad report (Normal) PD MEDICAL DECISION MAKING - ED course Complexity details: reviewed results, considered differential, d/w patient ED course: 34-year-old female presents to the emergency department stating that she has left-sided numbness, this appears to be a chronic ongoing issue. No abnormalities on brain MRI. No motor deficits on exam. Recommend that she follow-up with her doctor for further care. May benefit from an MRI of the C, T-spine. She would likely also benefit from a neurology referral. Patient counseled regarding signs and symptoms for which I believe and urgent re- evaluation would be necessary. Patient with good understanding of and agreement to plan and is comfortable going home at this time This document was made in part using voice recognition software. While efforts are made to proofread this document, sound alike and grammatical errors may occur. Departure - Departure Disposition: 01 Home, Self Care Clinical Impression: Paresthesia, Hypokalemia Condition: Good Instructions: ED Paraesthesias Follow-Up: JEANNIE TOUSSAINT DO [Primary Care Provider] - Within 1 week Comments: Your brain MRI is normal today. Follow-up with your doctor for further care. Return if you worsen. They may want to consider an MRI of your cervical and thoracic spine as well as a neurology referral. Discharge Date/Time: 12/25/19 13:28 NIHSS - Time Time: 09:47 - Level of Consciousness Level of consciousness: (0) Alert, Keenly responsive LOC Questions: (0) Answers both Q's correct LOC Commands: (0) Performs both correctly - Gaze Best Gaze: (0) Normal - Visual Visual: (0) No loss - Facial Palsy Facial Palsy: (0) Normal, symmetrical movement - Motor Arms (both separate) Motor Arm (right): (0) No drift Motor Arm (left): (0) No drift - Motor Legs (both separate) Motor Leg (right): (0) No drift Motor Leg (left): (0) No drift - Limb Ataxia Limb Ataxia: (0) Absent - Sensory Sensory: (1) [id number] loss - Best Language Best Language: (0) No aphasia - Dysarthria Dysarthria: (0) Normal - Extinction and Inattention (formally neg Extinction and inattention: (0) No abnormality - Total Score/Results Total Score/Result: 1
[2019-12-25 10:44] LABS: BASOPHILS % (AUTO) 0.6 %; EOSINOPHILS % (AUTO) 0.3 %; HGB - HEMOGLOBIN 13.2 g/dL (12.0-16.0); LYMPHOCYTES # (AUTO) 1.7 10^3/uL (1.5-3.5); MEAN CORPUSCULAR HEMOGLOBIN 30.6 pg (27.0-31.0); MEAN CORPUSCULAR HGB CONC 33.3 g/dL (32.0-36.0); MEAN CORPUSCULAR VOLUME 91.9 fL (81.0-99.0); MONOCYTES # (AUTO) 0.6 10^3/uL (0.0-1.0); MONOCYTES % (AUTO) 8.1 %; NEUTROPHILS # (AUTO) 4.5 10^3/uL (1.5-6.6); NEUTROPHILS % (AUTO) 65.6 %; PLT - PLATELET COUNT 306 10^3/uL (130-450); RED BLOOD COUNT 4.31 10^6/uL (4.20-5.40); RED CELL DISTRIBUTION WIDTH 12.7 % (12.0-15.0); WHITE BLOOD COUNT 6.8 x10^3/uL (4.8-10.8)
[2019-12-25 10:56] LABS: CALCIUM 9.1 mg/dL (8.5-10.3); CREATININE 0.6 mg/dL (0.4-1.0); MAGNESIUM 2.3 mg/dL (1.7-2.8); PHOSPHORUS 2.6 mg/dL (2.5-4.6)
[2019-12-25] MEDS ORDERED: GADOBUTROL 7.5 MMOL/7.5 ML VIAL ONE (11:30)
[2019-12-25] MEDS ORDERED: GADOBUTROL 7.5 MMOL/7.5 ML VIAL IVP ONE (12:06)
--- NOTE | 2019-12-25 12:45 | MRI Report ---
Reason: L sided numbness, abnormal CT scan Procedure Date: 12/25/2019 Accession Number: [id number] / [id number] Procedure: MRI - Brain W/WO CPT Code: Final Report FULL RESULT: EXAM: MRI BRAIN WITHOUT AND WITH CONTRAST EXAM DATE: 12/25/2019 12:28 PM. CLINICAL HISTORY: 34-year-old woman with left-sided numbness and abnormal CT scan. COMPARISON: HEAD W/O 12/12/2019 5:02 PM. TECHNIQUE: Multiplanar, multisequence T1-weighted and fluid-sensitive MR sequences of the brain were performed before and after administration of intravenous contrast. Sequences optimized for routine evaluation. Other: None. IV Contrast: 6 cc GADAVIST. FINDINGS: Parenchyma: No evidence of acute infarct on diffusion weighted sequence. Parenchyma is normal in appearance except for a few small foci of nonspecific FLAIR hyperintensity in the deep cerebral white matter, a common finding in this age group. No abnormality is present in the right frontal lobe corresponding to hypoattenuation seen on the earlier CT, therefore most likely reflecting beam hardening artifact on the CT. No evidence of prior hemorrhage on susceptibility weighted sequence. No abnormal enhancement. Pituitary: Normal in size. Ventricles and Extra-axial Spaces: Ventricles are symmetric and normal in size for age. Extra-axial spaces are unremarkable. No abnormal enhancement. Orbits: Unremarkable. Sinuses: Paranasal sinuses and mastoid air cells are clear. Major Vascular Flow Voids: Intact. Dural Venous Sinuses and Major Central Veins: Patent on post-contrast images. IMPRESSION: 1. Normal brain MRI. No evidence of infarct, hemorrhage, or mass lesion. [facility]
[2019-12-25 13:21] VITALS: BP 121/82
== END 2019-12-25 13:28 | disposition home or self-care (01) ==
LOC: ED 09:29
DX: R20.2 Paresthesia of skin (principal); E87.6 Hypokalemia; F17.200 Nicotine dependence, unspecified, uncomplicated
CPT/HCPCS: 36415; 70553; 80048; 83735; 84100; 85025; 96374; 99284; A9585

== ENCOUNTER 2020-02-04 08:25 | Emergency (ER) | payer OTHER ==
--- NOTE | 2020-02-04 08:58 | ED Physician Documentation ---
History of Present Illness - Stated complaint Stated Complaint: DIZZY/R ARM NUMBNESS - Chief complaint Chief Complaint: General - History obtained from History obtained from: Patient - History of Present Illness Timing: How many weeks ago (8) - Additonal information Additional information: 34-year-old female who works at [employer] is complaining of lig htheadedness dizziness and numbness. She has had symptoms for more than 2 months. She does have some stressful situation at home with being from her sleeping in different rooms. 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 She acknowledges this when confronted with this. Review of Systems Constitutional: reports: Fatigue. denies: Fever, Chills Eyes: denies: Decreased vision Ears: denies: Ear pain Nose: denies: Rhinorrhea / runny nose, Congestion Throat: denies: Dental pain / toothache Cardiac: denies: Chest pain / pressure, Palpitations Respiratory: reports: Dyspnea. denies: Cough GI: denies: Nausea, Vomiting : denies: Dysuria, Frequency PD PAST MEDICAL HISTORY - Past Medical History Cardiovascular: Other Respiratory: None GI: GERD ALUM MIXER: Ovarian cysts : None HEENT: Chronic sinusitis Psych: Depression Musculoskeletal: None - Past Surgical History Past Surgical History: No - Present Medications Home Medications: Ambulatory Orders Medication Instructions Recorded Confirmed Fexofenadine HCl [Susan Allergy] 60 mg PO DAILY 02/04/20 02/04/20 Multivit with Calcium,Iron,Min 1 tab PO DAILY 02/04/20 02/04/20 [Multiple Vitamins For Women] Potassium Chloride 20 meq PO DAILY #20 [email or web address] 02/04/20 - Allergies Allergies/Adverse Reactions: Allergies Allergy/AdvReac Type Severity Reaction Status Date / Time amoxicillin Allergy Unknown Verified 02/04/20 08:30 Cephalosporins Allergy Rash Verified 02/04/20 08:30 - Social History Does the pt smoke?: Yes Smoking Status: Current every day smoker Does the pt drink ETOH?: Yes Does the pt have substance abuse?: No - Immunizations Immunizations are current?: Yes - POLST Patient has POLST: No PD ED PE NORMAL - Vitals Vital signs reviewed: Yes (Hypertensive mild) - General General: Alert and oriented X 3, No acute distress, Well developed/nourished - HEENT HEENT: Atraumatic, PERRL, EOMI - Neck Neck: Supple, no meningeal sign, No bony TTP - Cardiac Cardiac: No murmur, Other (Tachycardic sitting up) - Respiratory Respiratory: No respiratory distress, Clear bilaterally - Abdomen Abdomen: Normal bowel sounds, Soft, Non tender, Non distended, No organomegaly - Back Back: No CVA TTP, No spinal TTP - Derm Derm: Normal color, Warm and dry, No rash - Extremities Extremities: No deformity, No edema, No calf tenderness / cord - Neuro Neuro: Alert and oriented X 3, residential support specialist 2-12 intact, No motor deficit, No sensory deficit, Normal speech Eye Opening: Spontaneous Motor: Obeys Commands Verbal: Oriented GCS Score: 15 - Psych Psych: Normal mood, Normal affect Results - Vitals Vitals: Vital Signs - 24 hr 02/04/20 02/04/20 02/04/20 08:30 09:00 09:02 Temperature 36.9 C Heart Rate 86 86 Heart Rate [ 88 Sitting] Heart Rate [ 112 H Standing] Heart Rate [ 86 Supine] Respiratory 20 12 Rate Blood Pressure 133/73 H 129/74 Blood Pressure 144/99 H [Sitting] Blood Pressure 147/99 H [Standing] Blood Pressure 129/74 [Supine] O2 Saturation 100 100 02/04/20 02/04/20 09:35 11:00 Temperature 36.6 C Heart Rate 78 83 Heart Rate [ Sitting] Heart Rate [ Standing] Heart Rate [ Supine] Respiratory 12 12 Rate Blood Pressure 129/91 H 124/90 H Blood Pressure [Sitting] Blood Pressure [Standing] Blood Pressure [Supine] O2 Saturation 100 100 Oxygen O2 Source Room air - Labs Labs: Laboratory Tests 02/04/20 02/04/20 02/04/20 08:45 08:45 08:45 WBC 5.0 RBC 4.31 Hgb 13.3 Hct 39.5 MCV 91.6 MCH 30.9 MCHC 33.7 RDW 12.4 Plt Count 270 MPV 9.8 Neut # (Auto) 2.8 Lymph # (Auto) 1.7 Crowley # (Auto) 0.4 Eos # (Auto) 0.1 Baso # (Auto) 0.0 Absolute Nucleated RBC 0.00 Nucleated RBC % 0.0 D-Dimer Sodium 138 Potassium 3.0 L Chloride 102 Carbon Dioxide 26 Anion Gap 10.0 BUN 12 Creatinine 0.6 Estimated GFR (MDRD) 114 Glucose 75 Calcium 9.6 Magnesium 2.0 Total Bilirubin 1.4 H AST 24 ALT 21 Alkaline Phosphatase 37 L Total Protein 8.0 Albumin 4.7 Globulin 3.3 Albumin/Globulin Ratio 1.4 Lipase 51 TSH 1.33 Urine Color Urine Clarity Urine pH Ur Specific Monroe Urine Protein Urine Glucose (UA) Urine Ketones Urine Occult Blood Urine Nitrite Urine Bilirubin Urine Urobilinogen Ur Leukocyte Esterase Ur Microscopic Review Urine Culture Comments Urine HCG, Qual 02/04/20 02/04/20 08:45 09:20 WBC RBC Hgb Hct MCV MCH MCHC RDW Plt Count MPV Neut # (Auto) Lymph # (Auto) Crowley # (Auto) Eos # (Auto) Baso # (Auto) Absolute Nucleated RBC Nucleated RBC % D-Dimer < 200.0 L Sodium Potassium Chloride Carbon Dioxide Anion Gap BUN Creatinine Estimated GFR (MDRD) Glucose Calcium Magnesium Total Bilirubin AST ALT Alkaline Phosphatase Total Protein Albumin Globulin Albumin/Globulin Ratio Lipase TSH Urine Color LT. YELLOW Urine Clarity CLEAR Urine pH 7.5 Ur Specific Monroe 1.010 Urine Protein NEGATIVE Urine Glucose (UA) NEGATIVE Urine Ketones NEGATIVE Urine Occult Blood TRACE-LYSE Urine Nitrite NEGATIVE Urine Bilirubin NEGATIVE Urine Urobilinogen 0.2 (NORMAL) Ur Leukocyte Esterase NEGATIVE Ur Microscopic Review NOT INDICATED Urine Culture Comments NOT INDICATED Urine HCG, Qual NEGATIVE Procedures - IVC sono (time) 0850 Bedside IVC sono: IVC measures (cm) (1.78), IVC collapsed c insp (cm) (1.12), Collapsibility index (0.31), Euvolemia PD MEDICAL DECISION MAKING - ED course Complexity details: reviewed results, re-evaluated patient, considered differential, d/w patient ED course: 34-year-old female who comes into the emergency department today with complaints of dizziness and lightheadedness especially if she is up and exerting herself at all. She is found to be orthostatic here in the emergency department and has a normal vascular volume. She is found to be hypokalemic. Potassium was replaced and her remainder of the work-up is otherwise unremarkable. Her d- dimer was negative her vascular volume was normal the remainder of her electrolytes were normal blood counts were normal. 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 Today we have tested her blood for antibodies. I have discussed with the patient the possibility of postural orthostatic tachycardia syndrome and she assures me that she is doing a lot of steps at work and this makes physical deconditioning less likely cause. She appears anxious. Departure - Departure Disposition: 01 Home, Self Care Clinical Impression: Hypokalemia, POTS (postural orthostatic tachycardia syndrome) Condition: Stable Instructions: ED Potassium Deficiency Follow-Up: JEANNIE TOUSSAINT DO [Primary Care Provider] - Prescriptions: Potassium Chloride 20 meq PO DAILY #20 [email or web address] Forms: Activity restrictions Discharge Date/Time: 02/04/20 11:17
[2020-02-04 09:05] LABS: BASOPHILS % (AUTO) 0.4 %; EOSINOPHILS # (AUTO) 0.1 10^3/uL (0.0-0.7); HGB - HEMOGLOBIN 13.3 g/dL (12.0-16.0); LYMPHOCYTES # (AUTO) 1.7 10^3/uL (1.5-3.5); LYMPHOCYTES % (AUTO) 33.1 %; MEAN CORPUSCULAR HEMOGLOBIN 30.9 pg (27.0-31.0); MEAN CORPUSCULAR HGB CONC 33.7 g/dL (32.0-36.0); MEAN CORPUSCULAR VOLUME 91.6 fL (81.0-99.0); MEAN PLATELET VOLUME 9.8 fL (7.9-10.8); MONOCYTES # (AUTO) 0.4 10^3/uL (0.0-1.0); MONOCYTES % (AUTO) 8.6 %; NEUTROPHILS # (AUTO) 2.8 10^3/uL (1.5-6.6); NEUTROPHILS % (AUTO) 56.5 %; PLT - PLATELET COUNT 270 10^3/uL (130-450); RED BLOOD COUNT 4.31 10^6/uL (4.20-5.40); RED CELL DISTRIBUTION WIDTH 12.4 % (12.0-15.0)
[2020-02-04 09:17] LABS: ALBUMIN 4.7 g/dL (3.2-5.5); ALBUMIN/GLOBULIN RATIO 1.4 (1.0-2.2); BILIRUBIN,TOTAL 1.4 mg/dL (0.2-1.0); CALCIUM 9.6 mg/dL (8.5-10.3); CREATININE 0.6 mg/dL (0.4-1.0)
[2020-02-04 09:29] LABS: BILIRUBIN,URINE NEGATIVE (NEGATIVE); GLUCOSE, URINE (UA) NEGATIVE (NEGATIVE); KETONES,URINE (UA) NEGATIVE (NEGATIVE); LEUKOCYTE ESTERASE, URINE NEGATIVE (NEGATIVE); NITRITE,URINE NEGATIVE (NEGATIVE); OCCULT BLOOD,URINE TRACE-LYSE (NEGATIVE); PH,URINE 7.5 PH (5.0-7.5); PROTEIN,URINE NEGATIVE (NEGATIVE); UROBILINOGEN,URINE 0.2 (NORMAL) E.U./dL (NORMAL)
[2020-02-04 09:31] LABS: CLARITY,URINE CLEAR (CLEAR); HCG UR QUAL NEGATIVE
[2020-02-04] MEDS ORDERED: POTASSIUM CHLORIDE 20 MEQ TABLET PO STA (09:38)
[2020-02-04 11:07] VITALS: BP 124/90
== END 2020-02-04 11:17 | disposition home or self-care (01) ==
LOC: ED 08:25
DX: I49.8 Other specified cardiac arrhythmias (principal); I95.1 Orthostatic hypotension; R42 Dizziness and giddiness; E87.6 Hypokalemia; Z01.84 Encounter for antibody response examination; F17.200 Nicotine dependence, unspecified, uncomplicated
CPT/HCPCS: 36415; 81003; 81025; 83690; 83735; 85379; 86769; 99283; 99284; A9270; 80053; 81001; 84443; 85025; 87086

== ENCOUNTER 2020-10-05 14:01 | Outpatient (CLI) | payer OTHER ==
[2020-10-05 14:25] VITALS: BP 129/58
--- NOTE | 2020-10-07 13:54 | PREOP HISTORY & PHYSICAL ---
DATE OF SERVICE: Physician: Maximiliano Mercado MD DATE OF SERVICE: OCTOBER 05, 2020 IDENTIFICATION: The patient is a 34-year-old G2, P0, AB1 female who comes in at 22 weeks EGA. CHIEF COMPLAINT: Decreased motion as well as cramping. HISTORY OF PRESENT ILLNESS: The patient states that she has noted increased risk in cramping. She d enies any discharge, loss of fluid. She also states she has been unable to feel the infant move. PAST MEDICAL HISTORY: Unremarkable. PAST SURGICAL HISTORY: Noncontributory. ALLERGIES: AMOXICILLIN WELL CECLOR. CURRENT MEDICATIONS: Omeprazole, potassium chloride, vitamins, and Tums. PHYSICAL EXAM: GENERAL: A well-developed, well-nourished female in no acute distress at this time. PELVIC: A cervix, which is long, thick, and closed. The presenting part is high. ABDOMEN: heart tones were auscultated and noted to be normal. DIAGNOSTIC DATA: She had an ultrasound performed transabdominally, which the was observed to be moving quite well in the abdominal cavity. The amniotic fluid also appeared to be quite normal. These were reviewed with both the provider as well as the patient and patient reassured. IMPRESSION: A 34-year-old G2, P0, AB1 female at 22 weeks noting decreased motion. Her cervix shows absolutely no change. The infant was noted to be moving well, and the patient was able to jacoby elate the movement with the visualization. The patient instructed to follow up should she have furth er problems. She is currently being followed by [facility]. TD: 10/05/2020 17:11
== END 2020-10-05 15:05 | disposition home or self-care (01) ==
LOC: WFO 14:01 → FBP 14:02 → WFO 15:05
PROVIDERS: ATTEND Obstetrics & Gynecology
DX: O36.8120 Decreased fetal movements, second trimester, not applicable or unspecified (principal); O99.891 Other specified diseases and conditions complicating pregnancy; R10.9 Unspecified abdominal pain; Z3A.22 22 weeks gestation of pregnancy
CPT/HCPCS: 82731; 99213

== ENCOUNTER 2020-11-12 11:15 | Outpatient (CLI) | payer OTHER ==
[2020-11-12 12:35] LABS: HCT - HEMATOCRIT 31.3 % (37.0-47.0); HGB - HEMOGLOBIN 10.4 g/dL (12.0-16.0); MEAN CORPUSCULAR HEMOGLOBIN 30.5 pg (27.0-31.0); MEAN CORPUSCULAR HGB CONC 33.2 g/dL (32.0-36.0); MEAN CORPUSCULAR VOLUME 91.8 fL (81.0-99.0); MEAN PLATELET VOLUME 9.4 fL (7.9-10.8); RED BLOOD COUNT 3.41 10^6/uL (4.20-5.40); RED CELL DISTRIBUTION WIDTH 13.1 % (12.0-15.0); WHITE BLOOD COUNT 10.2 x10^3/uL (4.8-10.8)
== END 2020-11-12 11:16 | disposition home or self-care (01) ==
LOC: LAB 11:15
PROVIDERS: ATTEND Obstetrics & Gynecology
DX: Z36.89 Encounter for other specified antenatal screening (principal)
CPT/HCPCS: 36415; 82950; 85027; 86850

== ENCOUNTER 2020-11-23 11:54 | Outpatient (CLI) | payer OTHER ==
[2020-11-23 13:00] LABS: BASOPHILS % (AUTO) 0.3 %; EOSINOPHILS # (AUTO) 0.1 10^3/uL (0.0-0.7); EOSINOPHILS % (AUTO) 1.3 %; HCT - HEMATOCRIT 29.8 % (37.0-47.0); HGB - HEMOGLOBIN 9.7 g/dL (12.0-16.0); LYMPHOCYTES # (AUTO) 1.4 10^3/uL (1.5-3.5); LYMPHOCYTES % (AUTO) 13.6 %; MEAN CORPUSCULAR HEMOGLOBIN 30.4 pg (27.0-31.0); MEAN CORPUSCULAR HGB CONC 32.6 g/dL (32.0-36.0); MEAN CORPUSCULAR VOLUME 93.4 fL (81.0-99.0); MEAN PLATELET VOLUME 9.8 fL (7.9-10.8); MONOCYTES # (AUTO) 0.8 10^3/uL (0.0-1.0); MONOCYTES % (AUTO) 7.4 %; NEUTROPHILS # (AUTO) 7.7 10^3/uL (1.5-6.6); NEUTROPHILS % (AUTO) 76.3 %; PLT - PLATELET COUNT 249 10^3/uL (130-450); RED BLOOD COUNT 3.19 10^6/uL (4.20-5.40); RED CELL DISTRIBUTION WIDTH 13.4 % (12.0-15.0); WHITE BLOOD COUNT 10.1 x10^3/uL (4.8-10.8)
[2020-11-23] MEDS ORDERED: ACETAMINOPHEN 500 MG TABLET PO ONE (13:00)
[2020-11-23 13:13] LABS: ALBUMIN 2.8 g/dL (3.2-5.5); ALBUMIN/GLOBULIN RATIO 0.7 (1.0-2.2); BILIRUBIN,TOTAL 0.5 mg/dL (0.2-1.0); CREATININE 0.4 mg/dL (0.4-1.0); POTASSIUM 3.2 mmol/L (3.5-5.0); TOTAL PROTEIN 6.6 g/dL (6.7-8.2)
[2020-11-23 13:15] VITALS: BP 126/67
[2020-11-23 13:42] LABS: CREATININE,URINE 53.3 mg/dL; PROTEIN/CREATININE RATIO,URINE 0.2 (<=0.2)
--- NOTE | 2020-11-23 15:41 | PROCEDURE REPORT ---
- HPI Current EDU 02/04/21 Gestation 29 Weeks and 4 Days 2 Para 1 Vital Signs Temperature 98.2 F 11/23/20 12:15 Heart Rate 84 11/23/20 12:15 Respiratory Rate 16 11/23/20 12:15 Blood Pressure 134/72 H 11/23/20 12:15 O2 Saturation 100 11/23/20 12:15 Temperature 98.2 F 11/23/20 12:15 Heart Rate 77 11/23/20 12:45 Respiratory Rate 18 11/23/20 12:45 Blood Pressure 126/67 11/23/20 12:45 O2 Saturation 98 11/23/20 12:45 - NST Procedure NST Procedure Start Date 11/23/20 Start Time 12:05 Stop Time 13:05 Vibroacoustic Stimulation Used No Patient States Movement Yes: Quiet during the day, active at night - Results and Plan Findings/Impression: Baseline: BPM 135 Variability: Moderate Accelerations: Present Decelerations: Absent Trends in FHR over time: change in baseline to 145BPM Di Giorgio contractions in 10 minutes: 0 Impression: reactive Category 1 NST Sent from clinic for eval due to complaint of LUONG, pt reports elevated BP at her workplace, LUONG 6/10. No visual changes or upper abdominal pain. LUONG improved to 2/10 following hydration, food, and tylenol. Normal BP's 100% here. Normal PIH labs. Plan for routine followup. Not seen by .
== END 2020-11-23 14:10 | disposition home or self-care (01) ==
LOC: WFO 11:54 → FBP 11:56 → WFO 14:10
PROVIDERS: ATTEND Obstetrics & Gynecology
DX: O99.891 Other specified diseases and conditions complicating pregnancy (principal); R51.9 Headache, unspecified; Z3A.29 29 weeks gestation of pregnancy
CPT/HCPCS: 36415; 59025; 80053; 82570; 84156; 85025; A9270; 99213

== ENCOUNTER 2020-12-20 14:03 | Outpatient (CLI) | payer OTHER ==
[2020-12-20 14:23] LABS: HCT - HEMATOCRIT 31.5 % (37.0-47.0); HGB - HEMOGLOBIN 10.7 g/dL (12.0-16.0); MEAN CORPUSCULAR HEMOGLOBIN 31.2 pg (27.0-31.0); MEAN CORPUSCULAR VOLUME 91.8 fL (81.0-99.0); MEAN PLATELET VOLUME 10.1 fL (7.9-10.8); RED BLOOD COUNT 3.43 10^6/uL (4.20-5.40); RED CELL DISTRIBUTION WIDTH 13.7 % (12.0-15.0); WHITE BLOOD COUNT 10.2 x10^3/uL (4.8-10.8)
== END 2020-12-20 14:04 | disposition home or self-care (01) ==
LOC: LAB 14:03
PROVIDERS: ATTEND Obstetrics & Gynecology
DX: O99.019 Anemia complicating pregnancy, unspecified trimester (principal)
CPT/HCPCS: 36415; 85027

== ENCOUNTER 2020-12-31 12:58 | Outpatient (CLI) | payer OTHER ==
[2020-12-31 13:36] VITALS: BP 132/73
[2020-12-31] MEDS ORDERED: FERRIC GLUCONATE 125 MG in SODIUM CHLORIDE 0.9% 100ML 100 ML IV ONE (14:00)
== END 2020-12-31 15:15 | disposition home or self-care (01) ==
LOC: WFO 12:58 → FBP 13:01 → WFO 15:15
PROVIDERS: ATTEND Obstetrics & Gynecology
DX: O99.019 Anemia complicating pregnancy, unspecified trimester (principal); O09.90 Supervision of high risk pregnancy, unspecified, unspecified trimester; Z3A.00 Weeks of gestation of pregnancy not specified
CPT/HCPCS: 96365; J2916

== ENCOUNTER 2021-01-10 08:00 | Outpatient (CLI) | payer OTHER ==
[2021-01-11 20:29] LABS: BACTERIAL VAGINOSIS DNA NEGATIVE (NEGATIVE); CANDIDA GLABRATA DNA NEGATIVE (NEGATIVE); CANDIDA GROUP DNA NEGATIVE (NEGATIVE); CANDIDA KRUSEI DNA NEGATIVE (NEGATIVE); TRICHOMONAS VAGINALIS DNA NEGATIVE (NEGATIVE)
[2021-01-11 21:27] LABS: CHLAMYDIA TRACHOMATIS DNA NEGATIVE (NEGATIVE); NEISSERIA GONORRHOEAE DNA NEGATIVE (NEGATIVE); TRICHOMONAS VAGINALIS DNA NEGATIVE (NEGATIVE)
== END 2021-01-10 23:59 | disposition home or self-care (01) ==
LOC: LAB.R 08:00
PROVIDERS: ATTEND Obstetrics & Gynecology
DX: Z36.85 Encounter for antenatal screening for Streptococcus B (principal); O99.891 Other specified diseases and conditions complicating pregnancy; L29.8 Other pruritus
CPT/HCPCS: 87491; 87591; 87661; 87797; 87801

== ENCOUNTER 2021-01-19 14:07 | Outpatient (CLI) | payer OTHER ==
[2021-01-19 14:49] LABS: HCT - HEMATOCRIT 33.3 % (37.0-47.0); HGB - HEMOGLOBIN 10.9 g/dL (12.0-16.0); MEAN CORPUSCULAR HEMOGLOBIN 29.8 pg (27.0-31.0); MEAN CORPUSCULAR HGB CONC 32.7 g/dL (32.0-36.0); MEAN PLATELET VOLUME 9.9 fL (7.9-10.8); RED BLOOD COUNT 3.66 10^6/uL (4.20-5.40); RED CELL DISTRIBUTION WIDTH 13.7 % (12.0-15.0); WHITE BLOOD COUNT 8.7 x10^3/uL (4.8-10.8)
== END 2021-01-19 14:08 | disposition home or self-care (01) ==
LOC: LAB 14:07
PROVIDERS: ATTEND Obstetrics & Gynecology
DX: O99.019 Anemia complicating pregnancy, unspecified trimester (principal); O09.90 Supervision of high risk pregnancy, unspecified, unspecified trimester
CPT/HCPCS: 36415; 85027

== ENCOUNTER 2021-01-26 10:10 | Outpatient (CLI) | payer OTHER ==
[2021-01-26 10:44] VITALS: BP 124/66
[2021-01-26] MEDS ORDERED: FERRIC GLUCONATE 125 MG in SODIUM CHLORIDE 0.9% 100ML 100 ML IV ONE (11:30)
== END 2021-01-26 12:40 | disposition home or self-care (01) ==
LOC: WFO 10:10 → FBP 10:12 → WFO 12:40
PROVIDERS: ATTEND Obstetrics & Gynecology
DX: O99.019 Anemia complicating pregnancy, unspecified trimester (principal); D64.9 Anemia, unspecified; Z3A.00 Weeks of gestation of pregnancy not specified
CPT/HCPCS: 96365; J2916

== ENCOUNTER 2021-02-03 18:09 | Inpatient (IN) | payer OTHER ==
[2021-02-03 18:57] LABS: RUPTURE OF MEMBRANES PLUS POSITIVE (NEGATIVE)
[2021-02-03 19:41] LABS: BASOPHILS % (AUTO) 0.3 %; EOSINOPHILS # (AUTO) 0.1 10^3/uL (0.0-0.7); EOSINOPHILS % (AUTO) 1.2 %; HCT - HEMATOCRIT 34.5 % (37.0-47.0); HGB - HEMOGLOBIN 11.5 g/dL (12.0-16.0); LYMPHOCYTES # (AUTO) 1.5 10^3/uL (1.5-3.5); LYMPHOCYTES % (AUTO) 14.8 %; MEAN CORPUSCULAR HEMOGLOBIN 30.5 pg (27.0-31.0); MEAN CORPUSCULAR HGB CONC 33.3 g/dL (32.0-36.0); MEAN CORPUSCULAR VOLUME 91.5 fL (81.0-99.0); MEAN PLATELET VOLUME 10.2 fL (7.9-10.8); MONOCYTES # (AUTO) 0.8 10^3/uL (0.0-1.0); MONOCYTES % (AUTO) 7.4 %; NEUTROPHILS # (AUTO) 7.6 10^3/uL (1.5-6.6); PLT - PLATELET COUNT 218 10^3/uL (130-450); RED BLOOD COUNT 3.77 10^6/uL (4.20-5.40); RED CELL DISTRIBUTION WIDTH 14.1 % (12.0-15.0); WHITE BLOOD COUNT 10.1 x10^3/uL (4.8-10.8)
[2021-02-03] MEDS ORDERED: ONDANSETRON 4 MG/2 ML VIAL IVP PRN ×2 (19:43→22:43)
[2021-02-03] MEDS ORDERED: LABETALOL 20 MG/4 ML SYRINGE IVP PRN (19:43)
[2021-02-03] MEDS ORDERED: fentaNYL 100 MCG/2 ML VIAL IVP PRN (19:43)
[2021-02-03] MEDS ORDERED: OXYTOCIN/SODIUM CHLORIDE 500 ML IV PRN (19:43)
[2021-02-03] MEDS ORDERED: OXYTOCIN 10 UNIT/ML VIAL IM PRN (19:43)
[2021-02-03] MEDS ORDERED: miSOPROStoL 200 MCG TABLET BC PRN (19:43)
[2021-02-03] MEDS ORDERED: hydrALAZINE INJ 20 MG/ML VIAL IVP PRN (19:43)
[2021-02-03] MEDS ORDERED: CARBOPROST TROMETHAMINE 250 MCG/ML AMP IM PRN (19:43)
[2021-02-03] MEDS ORDERED: METHYLERGONOVINE 0.2 MG/ML VIAL IM PRN (19:43)
[2021-02-03] MEDS ORDERED: SODIUM CHLORIDE FLUSH 0.9% 10 ML SYRINGE IVP PRN (19:43)
[2021-02-03] MEDS ORDERED: LIDOCAINE-MPF 1% 30 ML VIAL ID PRN (19:43)
[2021-02-03] MEDS ORDERED: TRANEXAMIC ACID IN NACL 1,000 MG/100 ML BAG IV PRN (19:43)
[2021-02-03 19:56] LABS: ALBUMIN 3.2 g/dL (3.2-5.5); ALBUMIN/GLOBULIN RATIO 0.8 (1.0-2.2); BILIRUBIN,TOTAL 0.8 mg/dL (0.2-1.0); CALCIUM 9.1 mg/dL (8.5-10.3); CREATININE 0.4 mg/dL (0.4-1.0); POTASSIUM 3.4 mmol/L (3.5-5.0)
[2021-02-03] MEDS ORDERED: VANCOMYCIN INJ 1.5 GM in SODIUM CHLORIDE 0.9% 500 ML IV SCH (20:00)
[2021-02-03] MEDS ORDERED: MAGNESIUM SULFATE 4 GRAM 4 GM/50 ML BAG IV ONE (20:05)
[2021-02-03] MEDS ORDERED: WATER FOR INJECTION,STERILE 40 ML MC ONE (20:36)
[2021-02-03] MEDS: LACTATED RINGERS 1,000 ML IV SCH (20:45)
[2021-02-03 21:04] LABS: CREATININE,URINE 56.8 mg/dL; PROTEIN/CREATININE RATIO,URINE 0.4 (<=0.2)
[2021-02-03] MEDS: MAGNESIUM SULFATE IN WATER 20 GM/500 ML IV.SOLN IV SCH (21:09)
[2021-02-03] MEDS ORDERED: ROPIVACAINE 0.2% 200 MG/100 ML BAG EP ONE (22:03)
[2021-02-03] MEDS ORDERED: NALBUPHINE 10 MG/ML AMP IVP PRN (22:43)
[2021-02-03] MEDS ORDERED: NALOXONE 0.4 MG/ML VIAL IVP PRN (22:43)
[2021-02-03] MEDS ORDERED: METOCLOPRAMIDE 10 MG/2 ML VIAL IVP PRN (22:43)
[2021-02-03] MEDS ORDERED: diphenhydrAMINE INJ 50 MG/ML VIAL IVP PRN (22:43)
--- NOTE | 2021-02-03 22:48 | ANESTHESIA ---
Pre-Anesthesia VS, & Labs - Diagnosis term labor, IUP - Procedure epidural for Vital Signs: Temp Pulse Resp BP Pulse Ox 36.9 C 103 H 16 151/86 H 100 02/03/21 21:21 02/03/21 18:46 02/03/21 18:46 02/03/21 18:49 02/03/21 18:46 Height: 5 ft 7 in Weight (kg): 105.233 kg Body Mass Index: 36.3 BMI Classification: Obese - NPO Last Fluid Intake: t/o/ day Last Food Intake: t/o day/noc - Is Patient ?: Yes - Lab Results Current Lab Results: Laboratory Tests 02/03/21 20:42: Blood Type Recheck A POSITIVE 02/03/21 19:32: Blood Type A POSITIVE, Antibody Screen NEGATIVE 02/03/21 19:32: Sodium 135, Potassium 3.4 L, Chloride 104, Carbon Dioxide 22, Anion Gap 9.0, BUN 6, Creatinine 0.4, Estimated GFR (MDRD) 181, Glucose 94, Calcium 9.1, Total Bilirubin 0.8, AST 18, ALT 16, Alkaline Phosphatase 124 H, Total Protein 7.0, Albumin 3.2, Globulin 3.8, Albumin/Globulin Ratio 0.8 L 02/03/21 19:32: Uric Acid 4.2 02/03/21 19:32: WBC 10.1, RBC 3.77 L, Hgb 11.5 L, Hct 34.5 L, MCV 91.5, MCH 30.5, MCHC 33.3, RDW 14.1, Plt Count 218, MPV 10.2, Neut # (Auto) 7.6 H, Lymph # (Auto) 1.5, [place] # (Auto) 0.8, Eos # (Auto) 0.1, Baso # (Auto) 0.0, Absolute Nucleated RBC 0.00, Nucleated RBC % 0.0 Lab results reviewed: Yes Fish Bones: 02/03/21 19:32 02/03/21 19:32 Home Medications and Allergies Active Medications Acetaminophen (Acetaminophen 325 Mg Tablet) 650 mg PO Q6H DORA Carboprost Tromethamine (Carboprost Tromethamine 250 Mcg/Ml Amp) 250 mcg IM Q15M PRN PRN Reason: Step 4: Hemorrhage protocol Stop: 02/08/21 19:44 Diphenhydramine HCl (Diphenhydramine Inj 50 Mg/Ml Vial) 12.5 - 25 mg IVP Q6HR PRN PRN Reason: ITCHING Ephedrine Sulfate (Ephedrine 50 Mg/Ml Vial) 5 mg IVP Q5M PRN PRN Reason: For SBP<100;give until SBP>100 Fentanyl (Fentanyl 100 Mcg/2 Ml Vial) 50 mcg IVP Q1H PRN PRN Reason: PAIN Hydralazine HCl (Hydralazine Inj 20 Mg/Ml Vial) 10 mg IVP .ONCE PRN; Protocol PRN Reason: Step 9 of Labetalol protocol Stop: 02/08/21 19:50 Lactated Ringer's (Lr) 1,000 mls @ 150 mls/hr IV .Q6H40M [facility] Last Admin: 02/03/21 20:45 Dose: 50 mls/hr Documented by: Oxytocin/Sodium Chloride (Pitocin/Sodium Chloride) 500 mls @ 999 mls/hr IV PRN PRN; Protocol PRN Reason: POST- HEMORR PREVENTION Stop: 02/08/21 19:44 Tranexamic Acid (Tranexamic 1,000 Mg/100ml-Nacl) 1,000 mg in 100 mls @ 600 mls/hr IV .ONCE PRN PRN Reason: EBL >1200mL and within 3hr Stop: 02/08/21 19:44 Vancomycin HCl 1.5 gm/ Sodium (Chloride) 500 mls @ 167 mls/hr IV Q12H [facility] Last Admin: 02/03/21 21:01 Dose: 167 mls/hr Documented by: Magnesium Sulfate (Magnesium Sulf 20 G/500 Ml Bag) 20 gm in 500 mls @ 50 mls/hr IV .Q10H [facility] Last Admin: 02/03/21 21:09 Dose: 2 gm/hr, 50 mls/hr Documented by: Ropivacaine (Naropin 0.2%) 200 mg in 100 mls @ 0 mls/hr EP PRN PRN; Protocol PRN Reason: PAIN Labetalol HCl (Labetalol 20 Mg/4 Ml Syringe) 20 - 80 mg IVP Q10M PRN; Protocol PRN Reason: SBP >160 or DBP >110 Last Admin: 02/03/21 21:57 Dose: 10 mg Documented by: Lidocaine HCl (Lidocaine-Mpf 1% 30 Ml Vial) 30 ml ID .ONCE PRN PRN Reason: PERINEAL REPAIR Stop: 02/08/21 19:44 Methylergonovine Maleate (Methylergonovine 0.2 Mg/Ml Vial) 0.2 mg IM .ONCE PRN PRN Reason: Step 2: Hemorrhage protocol Stop: 02/08/21 19:44 Metoclopramide HCl (Metoclopramide 10 Mg/2 Ml Vial) 10 mg IVP Q6HR PRN PRN Reason: Nausea / Vomiting Misoprostol (Misoprostol 200 Mcg Tablet) 800 mcg BC .ONCE PRN PRN Reason: Step 3: Hemorrhage protocol Stop: 02/08/21 19:44 Nalbuphine HCl (Nalbuphine 10 Mg/Ml Amp) 2.5 - 5 mg IVP Q4H PRN PRN Reason: ITCHING Naloxone HCl (Naloxone 0.4 Mg/Ml Vial) 0.1 mg IVP Q2M PRN PRN Reason: RR<8 Ondansetron HCl (Ondansetron 4 Mg/2 Ml Vial) 4 mg IVP Q4H PRN PRN Reason: Nausea / Vomiting Ondansetron HCl (Ondansetron 4 Mg/2 Ml Vial) 4 mg IVP Q6HR PRN PRN Reason: Nausea / Vomiting Oxytocin (Oxytocin 10 Unit/Ml Vial) 10 unit IM .ONCE PRN PRN Reason: Step one: If no IV access Stop: 02/08/21 19:44 Sodium Chloride (Sodium Chloride Flush 0.9% 10 Ml Syringe) 10 ml IVP PRN PRN PRN Reason: NEEDED PER PROVIDER ORDERS Sodium Chloride (Sodium Chloride Flush 0.9% 10 Ml Syringe) 10 ml IVP 0100,0900,1700 [facility] Fexofenadine HCl [Susan Allergy] 60 mg PO DAILY 02/04/20 Multivit with Calcium,Iron,Min [Multiple Vitamins For Women] 1 tab PO DAILY 02/04/20 Allergies/Adverse Reactions: Allergies Allergy/AdvReac Type Severity Reaction Status Date / Time amoxicillin Allergy Unknown Verified 02/04/20 08:30 Cephalosporins Allergy Rash Verified 02/04/20 08:30 Anes History & Medical History - Anesthetic History Anesthesia Complications: reports: No previous complications Family history of Anesthesia Complications: Denies Family history of Malignant Hyperthermia: Denies - Medical History Cardiovascular: reports: Hypertension (on admit), Other Pulmonary: reports: None Gastrointestinal: reports: GERD Urinary: reports: None Neuro: reports: Other Musculoskeletal: reports: None Endocrine/Autoimmune: reports: None Blood Disorders: reports: Anemia Skin: reports: None Smoking Status: Former smoker Exam General: Alert, Oriented x3, Cooperative Dental: WNL Mouth Openin Fingerbreadth Neck Mobility: Normal Mallampati classification: II Thyromental Distance: 4-6 cm Respiratory: No respiratory distress Cardiovascular: Regular rate Neurological: Normal speech Mental/Cognitive Status: Alert/Oriented X3, Normal for patient Plan Anesthesia Type: Epidural Consent for Procedure(s) Verified and Reviewed: Yes Code Status: Attempt Resuscitation ASA classification: 2-Mild systemic disease Is this case an emergency?: No
--- NOTE | 2021-02-03 22:59 | PROVIDER PROGRESS NOTE ---
Labor Progress Note - Uterine Monitoring Uterine Monitoring Mode: positive: External toco Contraction Frequency (min/apart): 3-4 Contraction Intensity: positive: Moderate to strong Uterine Resting Tone: positive: Soft - Monitoring Monitor Mode: positive: External ultrasound Heart Rate Baseline: 130'S Heart Rate Variability: positive: Moderate (6-25 bmp) Accelerations: positive: Present, 15x15 Decelerations: positive: None Strip Review: positive: Category I - Vaginal Exam Dilation (in cm): 5 cm Effacement (%): 90 % Station: -2 Cervical Position: Posterior - Labor Progress Note Labor Progress Note/Additional Text: Pt C/O pain requesting an epidural Placed with good pain control 10 mg labetolol given with good results monitor for progress consider pitocin.
--- NOTE | 2021-02-03 23:03 | HISTORY & PHYSICAL EXAMINATION ---
Admit History - : 2 Parity: 0 Premature: 0 Ectopic: 0 : 1 Care: positive: [facility] Risk/History: positive: None Complications This : positive: None Smoking Status: Current every day smoker - Mother's Labs Mother's Blood Type: positive: A Mother's RH: positive: Positive GBS: positive: Group B Strep Positive Rubella Status: positive: Immune - Other Maternal History Other Maternal History: Identification: Patient is a 35-year-old Ab1 female is 04 February making her 39 weeks and whose EDCChief complaint spontaneous rupture of membranes History of present illness patient days Rupture membranes spontaneously at roughly 1645. She presented for labor and delivery at which time a ROM plus was performed and was noted to be positive. Patient's OB care started at an [facility]. She transferred care at 24 weeks. Her OB care started at 7 weeks EGA. Her labs showed her to be a positive she was rubella immune her STI check for syphilis hepatitis B chlamydia gonorrhea HIV were all noted to be negative. Patient's 50 g Glucola was 126. Patient had a group B strep culture done at roughly 36 weeks was noted to be positive.Patient's blood pressures throughout her entire roughly have been running in the normal range. They have been running 106 to a maximum of 131. Patient showed good growth.Upon presenting to labor and delivery patient was noted to have blood pressures which were in the 150s over 90s. These did not resolve with time. Subsequently she had preeclamptic labs drawn which showed a protein creatinine ratio of 0.4. The remainder of her labs were within normal limits. Meds/Allgy - Home Medications Home Medications: Ambulatory Orders Medication Instructions Recorded Confirmed Fexofenadine HCl [Susan Allergy] 60 mg PO DAILY 02/04/20 02/04/20 Multivit with Calcium,Iron,Min 1 tab PO DAILY 02/04/20 02/04/20 [Multiple Vitamins For Women] Potassium Chloride 20 meq PO DAILY #20 [email or web address] 02/04/20 - Allergies Allergies/Adverse Reactions: Allergies Allergy/AdvReac Type Severity Reaction Status Date / Time amoxicillin Allergy Unknown Verified 02/04/20 08:30 Cephalosporins Allergy Rash Verified 02/04/20 08:30 Physical - Abdominal Exam Vital Signs: Temp Pulse Resp BP Pulse Ox 36.9 C 103 H 16 151/86 H 100 02/03/21 21:21 02/03/21 18:46 02/03/21 18:46 02/03/21 18:49 02/03/21 18:46 Contraction Frequency (min/apart): none Uterine Resting Tone: positive: Soft - Monitoring Heart Rate Baseline: 130 Strip Review: positive: Category I - Presentation Presentation: positive: Vertex - Vaginal Exam Membranes: positive: Membranes ruptured Dilation (in cm): 3 cm Effacement (%): 80 % Station: positive: -3 Cervical Position: positive: Posterior - Speculum Exam Speculum Exam Performed: positive: No (ROM + POSITIVE) - Other Notes Labor Progress Note/Additional Text: Vital signs Blood pressures 150s over 90s HEENT pupils equal round extraocular muscles intact heart regular rate and rhythm without murmurs Lung graf clear without rales or wheezes Abdomen is gravid nontender. Cervical examination showed a cervix which was 3 cm 80% effaced and -2 DTRs are 3+ and brisk 2 beats of clonus were noted She had 3+ edema. Plan for Labor - Plan For Labor I expect patient to be DC'd or transferred within 96 hours.: Yes Plan for Labor: Patient was admitted preeclamptic labs were drawn with the protein creatinine ratio of 0.4. Her pressures remained in the 150s over 90s range. She was started on magnesium sulfate 4 g load with 2 g/h.At this point we will place epidural for labor analgesia. She received labetalol 10 mg IV with an excellent response.
--- NOTE | 2021-02-03 23:33 | PROVIDER PROGRESS NOTE ---
Labor Progress Note - Uterine Monitoring Contraction Frequency (min/apart): 4 Contraction Intensity: positive: Moderate to strong Uterine Resting Tone: positive: Soft - Monitoring Monitor Mode: positive: External ultrasound Heart Rate Baseline: 127 Heart Rate Variability: positive: Moderate (6-25 bmp) Accelerations: positive: Present, 15x15 Decelerations: positive: None Strip Review: positive: Category I - Labor Progress Note Labor Progress Note/Additional Text: Pt started to feel nausea. BP check showed 87/46 fluid challange of 250 ml with ephedrin 10 mg Mag level BP improving
[2021-02-03] MEDS: ePHEDrine 50 MG/ML VIAL IVP PRN ×2 (23:35→23:48)
[2021-02-04] MEDS: ACETAMINOPHEN 325 MG TABLET PO SCH ×2 (00:45→12:19)
[2021-02-04] MEDS ORDERED: SODIUM CHLORIDE FLUSH 0.9% 10 ML SYRINGE IVP SCH (01:00)
--- NOTE | 2021-02-04 01:46 | PROVIDER PROGRESS NOTE ---
Labor Progress Note - Uterine Monitoring Uterine Monitoring Mode: positive: External toco Contraction Frequency (min/apart): 4 Contraction Intensity: positive: Moderate Uterine Resting Tone: positive: Soft - Monitoring Monitor Mode: positive: External ultrasound Heart Rate Baseline: 135 Heart Rate Variability: positive: Moderate (6-25 bmp) Accelerations: positive: Present, 15x15 Decelerations: positive: None Strip Review: positive: Category I - Vaginal Exam Dilation (in cm): 5 Effacement (%): 90% Station: -1 - Labor Progress Note Labor Progress Note/Additional Text: no cervical change. BP is steady good urine out put. decrease Mg to 2 gms /hr Start pitocin
[2021-02-04] MEDS ORDERED: OXYTOCIN/SODIUM CHLORIDE 500 ML IV SCH (02:00)
[2021-02-04] MEDS ORDERED: LACTATED RINGERS 1,000 ML IV SCH ×3 (03:00→19:00)
[2021-02-04] MEDS: ROPIVACAINE 0.2% 200 MG/100 ML BAG EP PRN ×3 (03:14→15:59)
[2021-02-04] MEDS: MAGNESIUM SULFATE IN WATER 20 GM/500 ML IV.SOLN IV SCH ×2 (04:50→15:26)
[2021-02-04] MEDS: ePHEDrine 50 MG/ML VIAL IVP PRN ×2 (05:38→06:07)
[2021-02-04] MEDS: LACTATED RINGERS 1,000 ML IV SCH (05:46)
[2021-02-04 06:15] LABS: CREATININE,URINE 83.9 mg/dL; PROTEIN/CREATININE RATIO,URINE 0.5 (<=0.2)
[2021-02-04 06:21] LABS: BASOPHILS % (AUTO) 0.2 %; EOSINOPHILS % (AUTO) 0.2 %; HCT - HEMATOCRIT 30.6 % (37.0-47.0); HGB - HEMOGLOBIN 10.1 g/dL (12.0-16.0); LYMPHOCYTES # (AUTO) 1.2 10^3/uL (1.5-3.5); LYMPHOCYTES % (AUTO) 9.7 %; MEAN CORPUSCULAR HEMOGLOBIN 30.3 pg (27.0-31.0); MEAN CORPUSCULAR VOLUME 91.9 fL (81.0-99.0); MONOCYTES # (AUTO) 0.8 10^3/uL (0.0-1.0); MONOCYTES % (AUTO) 6.6 %; NEUTROPHILS # (AUTO) 10.5 10^3/uL (1.5-6.6); NEUTROPHILS % (AUTO) 82.4 %; PLT - PLATELET COUNT 195 10^3/uL (130-450); RED BLOOD COUNT 3.33 10^6/uL (4.20-5.40); RED CELL DISTRIBUTION WIDTH 14.3 % (12.0-15.0); WHITE BLOOD COUNT 12.8 x10^3/uL (4.8-10.8)
[2021-02-04 06:31] LABS: ALBUMIN 2.8 g/dL (3.2-5.5); ALBUMIN/GLOBULIN RATIO 0.8 (1.0-2.2); BILIRUBIN,TOTAL 0.9 mg/dL (0.2-1.0); CALCIUM 8.1 mg/dL (8.5-10.3); CREATININE 0.5 mg/dL (0.4-1.0); POTASSIUM 3.5 mmol/L (3.5-5.0); TOTAL PROTEIN 6.2 g/dL (6.7-8.2); URIC ACID 4.6 mg/dL (2.6-7.2)
--- NOTE | 2021-02-04 06:55 | PROVIDER PROGRESS NOTE ---
Labor Progress Note - Uterine Monitoring Uterine Monitoring Mode: positive: External toco Contraction Frequency (min/apart): 2-3 Contraction Intensity: positive: Moderate to strong Uterine Resting Tone: positive: Soft - Monitoring Monitor Mode: positive: External ultrasound Heart Rate Baseline: 135 Heart Rate Variability: positive: Moderate (6-25 bmp) Accelerations: positive: Present, 15x15 Decelerations: positive: None Strip Review: positive: Category I - Vaginal Exam Dilation (in cm): 6 cm Effacement (%): 100 % Station: -1 Cervical Position: Midposition - Labor Progress Note Labor Progress Note/Additional Text: Labs WBC 12.8 platelets 195 Uric acid 4.6 Creatinine 0.5 protein creatinine ratio 0.5 magnesium 5.0. Patient's blood pressure has been well controlled throughout the night. She has not needed any repeat labetalol. She is currently on magnesium 2 g/h. Her urine output has been 160 ml/hr. She continues to be edematous. Her reflexes remain brisk. Pitocin is currently at 8. Patient slowly shows slow progress. Will continue to push forward. If C/S Pt is PCN and keflex allergic Consider Gent 500 mg Clinda 900 mg azithro 500 mg
[2021-02-04] MEDS ORDERED: VANCOMYCIN INJ 1 GM, VANCOMYCIN INJ 500 MG in SODIUM CHLORIDE 0.9% 500 ML IV SCH (09:00)
--- NOTE | 2021-02-04 10:48 | PROVIDER PROGRESS NOTE ---
Labor Progress Note - Uterine Monitoring Uterine Monitoring Mode: positive: External toco : 2-3 Contraction Intensity: positive: Strong Uterine Resting Tone: positive: Soft - Monitoring Monitor Mode: positive: External ultrasound Heart Rate Baseline: 135 Heart Rate Variability: positive: Moderate (6-25 bmp) Accelerations: positive: Present, 15x15 Decelerations: positive: None Strip Review: positive: Category I - Vaginal Exam Dilation (in cm): 9 Effacement (%): 100% Station: -1 Cervical Position: Anterior - Labor Progress Note Labor Progress Note/Additional Text: Progress. Good assessment BP well controlled will recheck 1-2 hours
--- NOTE | 2021-02-04 11:22 | CONSULTATION NOTE ---
Consultation Report: called as patient having some pain with contractions. Epidural bolus 10cc 2% lidocaine given with good relief, see OB nurses notes for VS, stable.
--- NOTE | 2021-02-04 11:53 | PROVIDER PROGRESS NOTE ---
Labor Progress Note - Uterine Monitoring Contraction Frequency (min/apart): 2-3 Contraction Intensity: positive: Strong Uterine Resting Tone: positive: Soft - Monitoring Heart Rate Baseline: 135 Heart Rate Variability: positive: Minimal (0-5 bpm) Accelerations: positive: Absent Decelerations: positive: None Strip Review: positive: Category I - Vaginal Exam Dilation (in cm): C Effacement (%): C Station: 1 Cervical Position: Anterior - Labor Progress Note Labor Progress Note/Additional Text: Complete. Start practise pushing
[2021-02-04] MEDS ORDERED: LIDOCAINE-PF 2% 10 ML AMP SUBQ ONE (12:15)
--- NOTE | 2021-02-04 14:24 | PROVIDER PROGRESS NOTE ---
Labor Progress Note - Uterine Monitoring Contraction Frequency (min/apart): 3-4 Contraction Intensity: positive: Moderate Uterine Resting Tone: positive: Soft - Monitoring Monitor Mode: positive: External ultrasound Heart Rate Baseline: 135 Heart Rate Variability: positive: Moderate (6-25 bmp) Accelerations: positive: Present, 15x15 Decelerations: positive: None Strip Review: positive: Category I - Vaginal Exam Dilation (in cm): C Effacement (%): C Station: 1 Cervical Position: Anterior - Labor Progress Note Labor Progress Note/Additional Text: pt reached complete @ 1200. allowed to labor down for 1:20. Started pushing effort was low. asses the pelvis and felt that a vacuum could over come her lack of pushing. Pulled with 3 contractions with out any progress. mother is exhausted and at her end. pit is at 10. discussed options and decisions to proceed with C/S. Risks and benefits explained. bleeding infection, injury to abdominal organs. Atony explained.
[2021-02-04] MEDS ORDERED: OXYTOCIN 10 UNIT/ML VIAL ONE ×2 (14:28→14:29)
[2021-02-04] MEDS ORDERED: PHENYLEPHRINE 10 MG/ML VIAL ONE (14:28)
[2021-02-04] MEDS ORDERED: ePHEDrine 50 MG/ML VIAL IVP ONE (14:28)
[2021-02-04] MEDS ORDERED: LIDOCAINE MPF 2%-EPI 1:200000 20 ML VIAL ONE (14:30)
[2021-02-04] MEDS ORDERED: AZITHROMYCIN INJ 500 MG in SODIUM CHLORIDE 0.9% 250 ML IV SCH (14:45)
[2021-02-04] MEDS ORDERED: CLINDAMYCIN 900 MG/50 ML 50 ML IV SCH (14:45)
[2021-02-04] MEDS ORDERED: GENTAMICIN 80MG VIAL 500 MG in SODIUM CHLORIDE 0.9% 100ML 100 ML IV SCH (14:45)
[2021-02-04] MEDS ORDERED: LIDOCAINE 1% 50 ML MDV ONE (15:49)
[2021-02-04] MEDS ORDERED: BUPIVACAINE 0.5%-EPI 1:200000 PF 30 ML VIAL ONE (15:49)
[2021-02-04] MEDS ORDERED: miSOPROStoL 200 MCG TABLET ONE (16:00)
[2021-02-04] MEDS ORDERED: CARBOPROST TROMETHAMINE 250 MCG/ML AMP IM ONE (16:00)
[2021-02-04] MEDS ORDERED: METHYLERGONOVINE 0.2 MG/ML VIAL ONE (16:01)
--- NOTE | 2021-02-04 16:26 | PROVIDER PROGRESS NOTE ---
Subjective - Prog Note Date Prog Note Date: 02/04/21 Prog Note Time: 16:23 - Subjective Subjective: Taking over for Dr. Mercado. Patient is preparing for after 2nd stage arrest with failed vacuum. Severe allergy to ceftriaxone, has been getting gentamicin 5 mg/kg, clindamcyin , and erythromycin Consents have been obtained. EFM 135 mod donna 15x15 accels no decels TOCO: intermittent Cat I tracing Objective - Vital Signs/Intake & Output Intake & Output: Intake & Output 02/01/21 02/02/21 02/03/21 02/04/21 23:59 23:59 23:59 23:59 Intake Total 167.5 3912.500 Output Total 5 2745 Balance 162.5 1167.500 - Lab Results Fish Bones: 02/04/21 06:14 02/04/21 06:14 Other Labs: Lab Results x24hrs 02/04/21 02/04/21 02/04/21 Range/Units 06:14 06:14 06:14 WBC 12.8 H (4.8-10.8) x10^3/uL RBC 3.33 L (4.20-5.40) 10^6/uL Hgb 10.1 L (12.0-16.0) g/dL Hct 30.6 L (37.0-47.0) % MCV 91.9 (81.0-99.0) fL MCH 30.3 (27.0-31.0) pg MCHC 33.0 (32.0-36.0) g/dL RDW 14.3 (12.0-15.0) % Plt Count 195 (130-450) 10^3/uL MPV 10.0 (7.9-10.8) fL Neut # (Auto) 10.5 H (1.5-6.6) 10^3/uL Lymph # (Auto) 1.2 L (1.5-3.5) 10^3/uL Woods # (Auto) 0.8 (0.0-1.0) 10^3/uL Eos # (Auto) 0.0 (0.0-0.7) 10^3/uL Baso # (Auto) 0.0 (0.0-0.1) 10^3/uL Absolute Nucleated RBC 0.00 x10^3/uL Nucleated RBC % 0.0 /100WBC Sodium 132 L (135-145) mmol/L Potassium 3.5 (3.5-5.0) mmol/L Chloride 100 L (101-111) mmol/L Carbon Dioxide 21 (21-32) mmol/L Anion Gap 11.0 (6-13) BUN 6 (6-20) mg/dL Creatinine 0.5 (0.4-1.0) mg/dL Estimated GFR (MDRD) 140 (>89) Glucose 99 (70-100) mg/dL Uric Acid 4.6 (2.6-7.2) mg/dL Calcium 8.1 L (8.5-10.3) mg/dL Magnesium 5.0 H* (1.7-2.8) mg/dL Total Bilirubin 0.9 (0.2-1.0) mg/dL AST 18 (10-42) IU/L ALT 13 (10-60) IU/L Alkaline Phosphatase 112 (42-121) IU/L Total Protein 6.2 L (6.7-8.2) g/dL Albumin 2.8 L (3.2-5.5) g/dL Globulin 3.4 (2.1-4.2) g/dL Albumin/Globulin Ratio 0.8 L (1.0-2.2) Urine Creatinine mg/dL Ur Total Protein Timed mg/dL Protein/Creatinin Ratio (<=0.2) Membranes Rupture (NEGATIVE) Blood Type Blood Type Recheck Antibody Screen Crossmatch IS Only 02/04/21 02/03/21 02/03/21 Range/Units 06:00 23:55 20:42 WBC (4.8-10.8) x10^3/uL RBC (4.20-5.40) 10^6/uL Hgb (12.0-16.0) g/dL Hct (37.0-47.0) % MCV (81.0-99.0) fL MCH (27.0-31.0) pg MCHC (32.0-36.0) g/dL RDW (12.0-15.0) % Plt Count (130-450) 10^3/uL MPV (7.9-10.8) fL Neut # (Auto) (1.5-6.6) 10^3/uL Lymph # (Auto) (1.5-3.5) 10^3/uL Woods # (Auto) (0.0-1.0) 10^3/uL Eos # (Auto) (0.0-0.7) 10^3/uL Baso # (Auto) (0.0-0.1) 10^3/uL Absolute Nucleated RBC x10^3/uL Nucleated RBC % /100WBC Sodium (135-145) mmol/L Potassium (3.5-5.0) mmol/L Chloride (101-111) mmol/L Carbon Dioxide (21-32) mmol/L Anion Gap (6-13) BUN (6-20) mg/dL Creatinine (0.4-1.0) mg/dL Estimated GFR (MDRD) (>89) Glucose (70-100) mg/dL Uric Acid (2.6-7.2) mg/dL Calcium (8.5-10.3) mg/dL Magnesium 3.7 H (1.7-2.8) mg/dL Total Bilirubin (0.2-1.0) mg/dL AST (10-42) IU/L ALT (10-60) IU/L Alkaline Phosphatase (42-121) IU/L Total Protein (6.7-8.2) g/dL Albumin (3.2-5.5) g/dL Globulin (2.1-4.2) g/dL Albumin/Globulin Ratio (1.0-2.2) Urine Creatinine 83.9 mg/dL Ur Total Protein Timed 39 mg/dL Protein/Creatinin Ratio 0.5 H (<=0.2) Membranes Rupture (NEGATIVE) Blood Type Blood Type Recheck A POSITIVE Antibody Screen Crossmatch IS Only 02/03/21 02/03/21 02/03/21 Range/Units 19:55 19:32 19:32 WBC (4.8-10.8) x10^3/uL RBC (4.20-5.40) 10^6/uL Hgb (12.0-16.0) g/dL Hct (37.0-47.0) % MCV (81.0-99.0) fL MCH (27.0-31.0) pg MCHC (32.0-36.0) g/dL RDW (12.0-15.0) % Plt Count (130-450) 10^3/uL MPV (7.9-10.8) fL Neut # (Auto) (1.5-6.6) 10^3/uL Lymph # (Auto) (1.5-3.5) 10^3/uL Woods # (Auto) (0.0-1.0) 10^3/uL Eos # (Auto) (0.0-0.7) 10^3/uL Baso # (Auto) (0.0-0.1) 10^3/uL Absolute Nucleated RBC x10^3/uL Nucleated RBC % /100WBC Sodium 135 (135-145) mmol/L Potassium 3.4 L (3.5-5.0) mmol/L Chloride 104 (101-111) mmol/L Carbon Dioxide 22 (21-32) mmol/L Anion Gap 9.0 (6-13) BUN 6 (6-20) mg/dL Creatinine 0.4 (0.4-1.0) mg/dL Estimated GFR (MDRD) 181 (>89) Glucose 94 (70-100) mg/dL Uric Acid (2.6-7.2) mg/dL Calcium 9.1 (8.5-10.3) mg/dL Magnesium (1.7-2.8) mg/dL Total Bilirubin 0.8 (0.2-1.0) mg/dL AST 18 (10-42) IU/L ALT 16 (10-60) IU/L Alkaline Phosphatase 124 H (42-121) IU/L Total Protein 7.0 (6.7-8.2) g/dL Albumin 3.2 (3.2-5.5) g/dL Globulin 3.8 (2.1-4.2) g/dL Albumin/Globulin Ratio 0.8 L (1.0-2.2) Urine Creatinine 56.8 mg/dL Ur Total Protein Timed 24 mg/dL Protein/Creatinin Ratio 0.4 H (<=0.2) Membranes Rupture (NEGATIVE) Blood Type A POSITIVE Blood Type Recheck Antibody Screen NEGATIVE Crossmatch IS Only See Detail 02/03/21 02/03/21 02/03/21 Range/Units 19:32 19:32 18:47 WBC 10.1 (4.8-10.8) x10^3/uL RBC 3.77 L (4.20-5.40) 10^6/uL Hgb 11.5 L (12.0-16.0) g/dL Hct 34.5 L (37.0-47.0) % MCV 91.5 (81.0-99.0) fL MCH 30.5 (27.0-31.0) pg MCHC 33.3 (32.0-36.0) g/dL RDW 14.1 (12.0-15.0) % Plt Count 218 (130-450) 10^3/uL MPV 10.2 (7.9-10.8) fL Neut # (Auto) 7.6 H (1.5-6.6) 10^3/uL Lymph # (Auto) 1.5 (1.5-3.5) 10^3/uL Woods # (Auto) 0.8 (0.0-1.0) 10^3/uL Eos # (Auto) 0.1 (0.0-0.7) 10^3/uL Baso # (Auto) 0.0 (0.0-0.1) 10^3/uL Absolute Nucleated RBC 0.00 x10^3/uL Nucleated RBC % 0.0 /100WBC Sodium (135-145) mmol/L Potassium (3.5-5.0) mmol/L Chloride (101-111) mmol/L Carbon Dioxide (21-32) mmol/L Anion Gap (6-13) BUN (6-20) mg/dL Creatinine (0.4-1.0) mg/dL Estimated GFR (MDRD) (>89) Glucose (70-100) mg/dL Uric Acid 4.2 (2.6-7.2) mg/dL Calcium (8.5-10.3) mg/dL Magnesium (1.7-2.8) mg/dL Total Bilirubin (0.2-1.0) mg/dL AST (10-42) IU/L ALT (10-60) IU/L Alkaline Phosphatase (42-121) IU/L Total Protein (6.7-8.2) g/dL Albumin (3.2-5.5) g/dL Globulin (2.1-4.2) g/dL Albumin/Globulin Ratio (1.0-2.2) Urine Creatinine mg/dL Ur Total Protein Timed mg/dL Protein/Creatinin Ratio (<=0.2) Membranes Rupture POSITIVE A (NEGATIVE) Blood Type Blood Type Recheck Antibody Screen Crossmatch IS Only
[2021-02-04] MEDS ORDERED: ATROPINE ABBOJECT 1 MG/10 ML SYRINGE IVP PRN (17:34)
[2021-02-04] MEDS ORDERED: MORPHINE 2 MG/ML CARPUJECT IVP PRN (17:34)
[2021-02-04] MEDS ORDERED: HYDROmorphone 0.5 MG/0.5 ML SYRINGE IVP PRN (17:34)
[2021-02-04] MEDS ORDERED: NALOXONE 0.4 MG/ML VIAL IVP PRN (17:34)
[2021-02-04] MEDS ORDERED: ONDANSETRON 4 MG/2 ML VIAL IVP PRN (17:34)
[2021-02-04] MEDS ORDERED: METOCLOPRAMIDE 10 MG/2 ML VIAL IVP PRN (17:34)
[2021-02-04] MEDS ORDERED: fentaNYL 100 MCG/2 ML VIAL IVP PRN (17:34)
[2021-02-04] MEDS ORDERED: ePHEDrine 50 MG/ML VIAL IVP PRN (17:34)
[2021-02-04] MEDS ORDERED: LACTATED RINGERS 900 ML IV ONE (18:29)
[2021-02-04] MEDS ORDERED: ONDANSETRON ODT 4 MG TABLET TL PRN (18:37)
[2021-02-04] MEDS ORDERED: SODIUM CHLORIDE FLUSH 0.9% 10 ML SYRINGE IVP PRN (18:37)
[2021-02-04] MEDS ORDERED: OXYTOCIN/SODIUM CHLORIDE 500 ML IV PRN (18:37)
--- NOTE | 2021-02-04 18:50 | OPERATIVE REPORT ---
Operative Report - General Admit Date: 02/03/21 Procedure Date: 02/04/21 Planned Procedure: Primary low transverse Pre-Op Diagnosis: Second stage arrest Procedure Performed: Primary low transverse Post Op Diagnosis: Same and delivery of term gestation, LGA - Procedure Note Primary Surgeon: Tyrell Jean-Baptiste MD Secondary Surgeon: TALISHA Aceves CNM Anesthesia Provider: Tyrell Duncan CRNA Anesthesia Technique: Epidural Pathology: Placenta for routine discard IV Fluids (mL): 500 Estimated Blood Loss (mL): 1,000 Urine Output (mL): 200 Drain/Tube Type: Lumbar drain Indications: Patient is a 35 yo at 40+0 who presented with ruptured membranes. Was started on pitocin for augmentation, reaching a max dose of 10 mU/min. She reached complete and labored down. She then pushed for a Findings: Normal appearing uterus, tubes, and ovaries. Female in vertex presentation with a double nuchal cord. Weight 4145g and Apgars 8/9 Complications: None - Other Other Information/Narrative: Risks benefits and alternatives of the procedure were discussed. Written informed consent was obtained. Patient was taken to the operating room where spinal anesthesia was placed and found to be adequate. She was prepped and draped in the usual sterile fashion in the dorsal supine position with a leftward tilt. Mckeon catheter was in place. SCDs were in place and activated. Gentamicin 5 mg/kg, Clindamycin 900, and Azithromycin 500 mg IV were given as a preoperative antibiotic. Preoperative timeout was performed. A Pfannenstiel incision was made in the skin with a scalpel and carried through the underlying layer of fascia in a combination of sharp and blunt dissection. The fascia was incised in the midline, and the incision was extended laterally with the Johns scissors. The superior aspect of the fascial incision was grasped with the Drew clamps, elevated, and the underlying rectus muscles were dissected off bluntly and sharply using the Johns scissors. Attention was then turned to the inferior aspect of the incision which in a similar fashion was grasped, tented up with Drew clamps, and the underlying rectus muscles dissected off bluntly and sharply using Johns scissors. The rectus muscles were then in the midline. The peritoneum was identified, tented up, and entered bluntly. The peritoneal incision was extended superiorly and inferiorly with good visualization of the bladder. The bladder that blade was then inserted. A bladder flap was not created. The lower uterine segment of the uterus was identified, and incised in a transverse fashion with a scalpel. The uterus was entered bluntly. The uterine incision was extended in a craniocaudal fashion by manual stretch. The bladder blade was removed. The infant was delivered from from vertex position. Baby was wrapped in a warm sterile towel. After cessation of pulsations, the cord was clamped x2 and cut. The infant was handed off to the waiting pediatricians. The placenta was removed with manual expression. The uterus was NOT exteriorized. It was cleared of all clots and debris via manual swipe using Ray-Leonidas x2. The uterine incision was then repaired in a running locked fashion using 0 Vicryl suture. The incision was reinforced with a running imbricating layer again using 0-Vicryl suture. Excellent hemostasis was obtained. The uterus was returned to the abdomen. The gutters were cleared of all clots and debris. The pelvis was irrigated with warm normal saline. The uterine defect was well visualized in normal anatomic position it was noted again to be hemostatic. The peritoneum was then reapproximated with 2-0 Vicryl in a running fashion. The rectus muscles were then reapproximated using interrupted [id number] sutures using 2-0 Chromic. Good hemostasis was noted. The fascia was then closed using 0 Vicryl in a running fashion starting from the left lateral edge to the midline. A second suture was used to close the fascia in a running fashion starting from the right lateral edge and meeting in the midline, agian using 0-Vicryl. The subcutaneous tissue was then irrigated and closed using 2-0 chromic in a running subcutaneous suture. Skin was closed in a running subcuticular suture using 4-0 Monocryl. Steri-Strips were applied to reinforce the incsion and dressing was applied. Procedure was well-tolerated and without complication. Sponge lap and needle counts were correct x2. Patient was taken to recovery room in stable condition. SHRUTHI Vaughn assisted with retraction, delivery of the , and suturing.
[2021-02-04] MEDS: KETOROLAC 30 MG/ML VIAL IVP SCH (19:36)
[2021-02-04] MEDS: oxyCODONE 5 MG TABLET PO PRN ×2 (19:39→23:31)
[2021-02-04] MEDS: ACETAMINOPHEN 500 MG TABLET PO SCH (20:01)
--- NOTE | 2021-02-04 20:27 | ANESTHESIA POST OP EVALUATION ---
Anesthesia Post Eval - Post Anesthesia Eval Vitals: Last Vital Signs Temp 36.4 C L 02/04/21 19:00 Pulse 111 H 02/04/21 19:07 Resp 18 02/04/21 19:07 BP 139/72 H 02/04/21 19:07 Pulse Ox 99 02/04/21 19:07 CV Function Including HR & BP: Stable Pain Control: Satisfactory Nausea & Vomiting: Negative Mental Status: Baseline Respiratory Status: Airway Patent Hydration Status: Satisfactory Anesthesia Complications: None
[2021-02-05] MEDS ORDERED: SODIUM CHLORIDE FLUSH 0.9% 10 ML SYRINGE IVP SCH (01:00)
[2021-02-05] MEDS: KETOROLAC 30 MG/ML VIAL IVP SCH ×3 (02:15→14:04)
[2021-02-05] MEDS: DOCUSATE SODIUM 100 MG CAPSULE PO SCH ×3 (02:39→20:14)
[2021-02-05] MEDS: oxyCODONE 5 MG TABLET PO PRN ×5 (05:19→21:08)
[2021-02-05] MEDS: ACETAMINOPHEN 500 MG TABLET PO SCH ×3 (05:21→21:07)
[2021-02-05 05:22] LABS: BASOPHILS # (AUTO) 0.1 10^3/uL (0.0-0.1); BASOPHILS % (AUTO) 0.4 %; EOSINOPHILS % (AUTO) 0.1 %; HCT - HEMATOCRIT 28.7 % (37.0-47.0); HGB - HEMOGLOBIN 9.4 g/dL (12.0-16.0); LYMPHOCYTES % (AUTO) 6.1 %; MEAN CORPUSCULAR HEMOGLOBIN 30.2 pg (27.0-31.0); MEAN CORPUSCULAR HGB CONC 32.8 g/dL (32.0-36.0); MEAN CORPUSCULAR VOLUME 92.3 fL (81.0-99.0); MEAN PLATELET VOLUME 9.6 fL (7.9-10.8); MONOCYTES # (AUTO) 0.8 10^3/uL (0.0-1.0); MONOCYTES % (AUTO) 4.7 %; NEUTROPHILS # (AUTO) 13.9 10^3/uL (1.5-6.6); PLT - PLATELET COUNT 194 10^3/uL (130-450); RED BLOOD COUNT 3.11 10^6/uL (4.20-5.40); RED CELL DISTRIBUTION WIDTH 14.5 % (12.0-15.0); WHITE BLOOD COUNT 15.8 x10^3/uL (4.8-10.8)
[2021-02-05] MEDS: IBUPROFEN 600 MG TABLET PO SCH ×2 (06:01→20:12)
[2021-02-05] MEDS: SIMETHICONE CHEW 80 MG TABLET PO PRN ×3 (07:57→17:10)
--- NOTE | 2021-02-05 08:09 | PROVIDER PROGRESS NOTE ---
Subjective - Prog Note Date Prog Note Date: 02/05/21 Prog Note Time: 08:07 - Subjective Subjective: Patient is POD#1 s/p after second stage arrest and failed vacuum. Face is still very swollen. Abdomen is distended but she is not in any pain. Mostly her hips hurt. Rates pain 5/10. eaten small volumes of food without nausea/emesis. No flatus. Mckeon catheter remains in place with ample output of clear urine. Feels jittery if she tries to move. Objective - Vital Signs/Intake & Output Vital Signs: Vital Signs x48h Temp Pulse Resp BP Pulse Ox 02/05/21 02:00 99.7 F 112 H 18 120/69 02/05/21 00:19 20 126/71 99 Intake & Output: Intake & Output 02/02/21 02/03/21 02/04/21 02/05/21 23:59 23:59 23:59 23:59 Intake Total 167.5 5890.500 850 Output Total 5 3920 1300 Balance 162.5 1970.500 -450 - Objective General Appearance: positive: No acute distress, Other (swollen edematous facies) Respiratory: positive: No respiratory distress Cardiovascular: positive: Other (RR) Abdomen: positive: Other (Distended and generally non-tender. Less soft than yesterday's exam. No guarding. Incision with dressing in place, CDI) Skin: positive: Color nml Extremities: positive: Other (SCDs in place) Neurologic/Psychiatric: positive: Oriented x3 - Lab Results Fish Bones: 02/05/21 05:15 02/04/21 06:14 Other Labs: Lab Results x24hrs 02/05/21 02/03/21 Range/Units 05:15 19:32 WBC 15.8 H (4.8-10.8) x10^3/uL RBC 3.11 L (4.20-5.40) 10^6/uL Hgb 9.4 L (12.0-16.0) g/dL Hct 28.7 L (37.0-47.0) % MCV 92.3 (81.0-99.0) fL MCH 30.2 (27.0-31.0) pg MCHC 32.8 (32.0-36.0) g/dL RDW 14.5 (12.0-15.0) % Plt Count 194 (130-450) 10^3/uL MPV 9.6 (7.9-10.8) fL Neut # (Auto) 13.9 H (1.5-6.6) 10^3/uL Lymph # (Auto) 1.0 L (1.5-3.5) 10^3/uL [place] # (Auto) 0.8 (0.0-1.0) 10^3/uL Eos # (Auto) 0.0 (0.0-0.7) 10^3/uL Baso # (Auto) 0.1 (0.0-0.1) 10^3/uL Absolute Nucleated RBC 0.00 x10^3/uL Nucleated RBC % 0.0 /100WBC Crossmatch IS Only See Detail Assessment/Plan - Problem List (1) deliv NOS-unsp Impression: POD#1: Will work on ambulation today Concern for ileus: able to tolerate food. May need to make NPO or clears only if starts to vomit. Simethicone this am LISA Mckeon today HCT 28.7; does nto seem to reflect amount of EBL at time of surgery -Will recheck CBC and CMP at noon -Anticipate will need iron infusion if not transfusion Tolerating po Pain well managed Cont in-patient care (2) Preeclampsia Impression: Blood pressures are normal off magnesium and on no meds Check PIH labs at noon No PIH symptoms
[2021-02-05 12:25] LABS: BASOPHILS # (AUTO) 0.1 10^3/uL (0.0-0.1); BASOPHILS % (AUTO) 0.4 %; EOSINOPHILS % (AUTO) 0.2 %; HCT - HEMATOCRIT 27.2 % (37.0-47.0); HGB - HEMOGLOBIN 8.9 g/dL (12.0-16.0); LYMPHOCYTES # (AUTO) 1.4 10^3/uL (1.5-3.5); LYMPHOCYTES % (AUTO) 8.3 %; MEAN CORPUSCULAR HEMOGLOBIN 30.7 pg (27.0-31.0); MEAN CORPUSCULAR HGB CONC 32.7 g/dL (32.0-36.0); MEAN CORPUSCULAR VOLUME 93.8 fL (81.0-99.0); MONOCYTES % (AUTO) 5.8 %; NEUTROPHILS # (AUTO) 13.9 10^3/uL (1.5-6.6); NEUTROPHILS % (AUTO) 84.7 %; PLT - PLATELET COUNT 188 10^3/uL (130-450); RED CELL DISTRIBUTION WIDTH 14.7 % (12.0-15.0); WHITE BLOOD COUNT 16.4 x10^3/uL (4.8-10.8)
[2021-02-05 12:37] LABS: ALBUMIN 2.3 g/dL (3.2-5.5); ALBUMIN/GLOBULIN RATIO 0.7 (1.0-2.2); CALCIUM 8.2 mg/dL (8.5-10.3); CREATININE 0.6 mg/dL (0.4-1.0); POTASSIUM 3.3 mmol/L (3.5-5.0); TOTAL PROTEIN 5.5 g/dL (6.7-8.2)
[2021-02-06] MEDS: IBUPROFEN 600 MG TABLET PO SCH ×4 (02:47→23:10)
[2021-02-06] MEDS: oxyCODONE 5 MG TABLET PO PRN ×4 (02:47→16:24)
[2021-02-06] MEDS: ACETAMINOPHEN 500 MG TABLET PO SCH ×2 (06:55→16:24)
[2021-02-06] MEDS: SIMETHICONE CHEW 80 MG TABLET PO PRN ×3 (06:56→16:25)
[2021-02-06] MEDS: DOCUSATE SODIUM 100 MG CAPSULE PO SCH (08:51)
[2021-02-06 11:56] LABS: BASOPHILS # (AUTO) 0.1 10^3/uL (0.0-0.1); BASOPHILS % (AUTO) 0.3 %; EOSINOPHILS # (AUTO) 0.2 10^3/uL (0.0-0.7); EOSINOPHILS % (AUTO) 1.2 %; HCT - HEMATOCRIT 28.8 % (37.0-47.0); HGB - HEMOGLOBIN 9.3 g/dL (12.0-16.0); LYMPHOCYTES # (AUTO) 1.3 10^3/uL (1.5-3.5); LYMPHOCYTES % (AUTO) 7.3 %; MEAN CORPUSCULAR HEMOGLOBIN 30.1 pg (27.0-31.0); MEAN CORPUSCULAR HGB CONC 32.3 g/dL (32.0-36.0); MEAN CORPUSCULAR VOLUME 93.2 fL (81.0-99.0); MEAN PLATELET VOLUME 9.6 fL (7.9-10.8); MONOCYTES # (AUTO) 1.1 10^3/uL (0.0-1.0); MONOCYTES % (AUTO) 6.2 %; NEUTROPHILS # (AUTO) 14.4 10^3/uL (1.5-6.6); NEUTROPHILS % (AUTO) 83.7 %; PLT - PLATELET COUNT 233 10^3/uL (130-450); RED BLOOD COUNT 3.09 10^6/uL (4.20-5.40); RED CELL DISTRIBUTION WIDTH 14.4 % (12.0-15.0); WHITE BLOOD COUNT 17.2 x10^3/uL (4.8-10.8)
[2021-02-06 12:14] LABS: ALBUMIN 2.6 g/dL (3.2-5.5); ALBUMIN/GLOBULIN RATIO 0.7 (1.0-2.2); BILIRUBIN,TOTAL 0.9 mg/dL (0.2-1.0); CREATININE 0.6 mg/dL (0.4-1.0); POTASSIUM 3.6 mmol/L (3.5-5.0); TOTAL PROTEIN 6.5 g/dL (6.7-8.2)
--- NOTE | 2021-02-06 12:35 | PROVIDER PROGRESS NOTE ---
Subjective - Prog Note Date Prog Note Date: 02/06/21 Prog Note Time: 12:32 - Subjective Subjective: Patient is making slow improvements. However, she has intermittent low grade febrile temperatures, a rising WBC, and intermittent tachycardia. Long and dif ficult labor course followed with with larger end of normal EBL. Low potassium at baseline, normal today. Still feels too weak to go home, per her own assessment. Ambulating and voiding. Abdomen remains distended but tolerating po and having more substantial flatus. Pain well managed. Giving some formula as having some issues with BM volume. Having pump brought from home. Bleeding appropriate. Objective - Vital Signs/Intake & Output Reviewed Vital Signs: Yes Vital Signs: Vital Signs x48h Temp Pulse Resp BP Pulse Ox 02/06/21 12:18 99.1 F 113 H 16 123/78 99 02/06/21 07:29 98.8 F 108 H 20 138/85 H 100 02/06/21 05:00 98.8 F 100 18 110/60 98 Intake & Output: Intake & Output 02/03/21 02/04/21 02/05/21 02/06/21 23:59 23:59 23:59 23:59 Intake Total 167.5 5890.500 2690 950 Output Total 5 3920 3575 Balance 162.5 1970.500 -885 950 - Objective General Appearance: positive: No acute distress Respiratory: positive: No respiratory distress Cardiovascular: positive: Other (RR) Peripheral Pulses: 2+ Radial (R), 2+ Radial (L), 2+ Popliteal (R), 2+ Popliteal (L) Abdomen: positive: Non-tender, Other (Distended but non-tender. FF below umbi.) Back: positive: Nml inspection Skin: positive: Color nml Extremities: positive: Other (BLE edema, no TTP) Neurologic/Psychiatric: positive: Oriented x3 Comments/Other: Facies with reduced swelling - Lab Results Fish Bones: 02/06/21 11:45 02/06/21 11:45 Other Labs: Lab Results x24hrs 02/06/21 02/06/21 02/05/21 Range/Units 11:45 11:45 12:14 WBC 17.2 H (4.8-10.8) x10^3/uL RBC 3.09 L (4.20-5.40) 10^6/uL Hgb 9.3 L (12.0-16.0) g/dL Hct 28.8 L (37.0-47.0) % MCV 93.2 (81.0-99.0) fL MCH 30.1 (27.0-31.0) pg MCHC 32.3 (32.0-36.0) g/dL RDW 14.4 (12.0-15.0) % Plt Count 233 (130-450) 10^3/uL MPV 9.6 (7.9-10.8) fL Neut # (Auto) 14.4 H (1.5-6.6) 10^3/uL Lymph # (Auto) 1.3 L (1.5-3.5) 10^3/uL [place]ley # (Auto) 1.1 H (0.0-1.0) 10^3/uL Eos # (Auto) 0.2 (0.0-0.7) 10^3/uL Baso # (Auto) 0.1 (0.0-0.1) 10^3/uL Absolute Nucleated RBC 0.00 x10^3/uL Nucleated RBC % 0.0 /100WBC Sodium 136 136 (135-145) mmol/L Potassium 3.6 3.3 L (3.5-5.0) mmol/L Chloride 102 102 (101-111) mmol/L Carbon Dioxide 23 25 (21-32) mmol/L Anion Gap 11.0 9.0 (6-13) BUN 9 7 (6-20) mg/dL Creatinine 0.6 0.6 (0.4-1.0) mg/dL Estimated GFR (MDRD) 113 113 (>89) Glucose 105 H 86 (70-100) mg/dL Calcium 9.0 8.2 L (8.5-10.3) mg/dL Total Bilirubin 0.9 1.0 (0.2-1.0) mg/dL AST 23 22 (10-42) IU/L ALT 14 13 (10-60) IU/L Alkaline Phosphatase 102 89 (42-121) IU/L Total Protein 6.5 L 5.5 L (6.7-8.2) g/dL Albumin 2.6 L 2.3 L (3.2-5.5) g/dL Globulin 3.9 3.2 (2.1-4.2) g/dL Albumin/Globulin Ratio 0.7 L 0.7 L (1.0-2.2) 02/05/21 Range/Units 12:14 WBC 16.4 H (4.8-10.8) x10^3/uL RBC 2.90 L (4.20-5.40) 10^6/uL Hgb 8.9 L (12.0-16.0) g/dL Hct 27.2 L (37.0-47.0) % MCV 93.8 (81.0-99.0) fL MCH 30.7 (27.0-31.0) pg MCHC 32.7 (32.0-36.0) g/dL RDW 14.7 (12.0-15.0) % Plt Count 188 (130-450) 10^3/uL MPV 10.0 (7.9-10.8) fL Neut # (Auto) 13.9 H (1.5-6.6) 10^3/uL Lymph # (Auto) 1.4 L (1.5-3.5) 10^3/uL [place] # (Auto) 1.0 (0.0-1.0) 10^3/uL Eos # (Auto) 0.0 (0.0-0.7) 10^3/uL Baso # (Auto) 0.1 (0.0-0.1) 10^3/uL Absolute Nucleated RBC 0.00 x10^3/uL Nucleated RBC % 0.0 /100WBC Sodium (135-145) mmol/L Potassium (3.5-5.0) mmol/L Chloride (101-111) mmol/L Carbon Dioxide (21-32) mmol/L Anion Gap (6-13) BUN (6-20) mg/dL Creatinine (0.4-1.0) mg/dL Estimated GFR (MDRD) (>89) Glucose (70-100) mg/dL Calcium (8.5-10.3) mg/dL Total Bilirubin (0.2-1.0) mg/dL AST (10-42) IU/L ALT (10-60) IU/L Alkaline Phosphatase (42-121) IU/L Total Protein (6.7-8.2) g/dL Albumin (3.2-5.5) g/dL Globulin (2.1-4.2) g/dL Albumin/Globulin Ratio (1.0-2.2) Assessment/Plan - Problem List (1) deliv NOS-unsp Impression: PPD#2: Slow recovery ID: WBC climbing but no true febrile temperatures HCT 28.; improved from yesterday Cont to observe PRE-E: BPs in mild to normal range ROUTINE PP CARE: Voiding Tolerating po -Abd distention pronounced but passing flatus and tolerating po Cont to encourage ambulation Pain well managed FEN: Takes KCl at baseline but wnl today. Cont to observe with inpatient care (2) Preeclampsia Impression: Normal to mild range blood pressures No PIH symptoms Cont to monitor
[2021-02-07] MEDS: ACETAMINOPHEN 500 MG TABLET PO SCH ×3 (00:36→15:42)
[2021-02-07] MEDS: oxyCODONE 5 MG TABLET PO PRN ×4 (01:45→19:54)
[2021-02-07] MEDS: IBUPROFEN 600 MG TABLET PO SCH ×4 (04:55→19:53)
[2021-02-07 05:39] LABS: BASOPHILS % (AUTO) 0.3 %; EOSINOPHILS # (AUTO) 0.2 10^3/uL (0.0-0.7); EOSINOPHILS % (AUTO) 1.1 %; HCT - HEMATOCRIT 26.9 % (37.0-47.0); LYMPHOCYTES # (AUTO) 1.1 10^3/uL (1.5-3.5); LYMPHOCYTES % (AUTO) 7.9 %; MEAN CORPUSCULAR HGB CONC 33.5 g/dL (32.0-36.0); MEAN CORPUSCULAR VOLUME 92.8 fL (81.0-99.0); MEAN PLATELET VOLUME 9.5 fL (7.9-10.8); MONOCYTES % (AUTO) 6.9 %; NEUTROPHILS # (AUTO) 11.4 10^3/uL (1.5-6.6); NEUTROPHILS % (AUTO) 80.9 %; PLT - PLATELET COUNT 235 10^3/uL (130-450); RED CELL DISTRIBUTION WIDTH 13.9 % (12.0-15.0); WHITE BLOOD COUNT 14.1 x10^3/uL (4.8-10.8)
[2021-02-07] MEDS: DOCUSATE SODIUM 100 MG CAPSULE PO SCH ×2 (07:55→20:57)
[2021-02-07] MEDS: SIMETHICONE CHEW 80 MG TABLET PO PRN ×3 (07:55→19:54)
--- NOTE | 2021-02-07 12:12 | Discharge Plan ---
Discharge Plan Problem Reviewed?: Yes Disposition: Home, Self Care Condition: Good Prescriptions: Acetaminophen [Acetaminophen Extra Strength] 1,000 mg PO Q8H PRN #60 tablet PRN Reason: Pain Docusate Sodium 100Mg Capsule [Colace 100Mg Capsule] 100 - 200 mg PO BID PRN #60 cap PRN Reason: Constipation Ferrous Gluconate 324 mg PO BID #90 tablet Ibuprofen [Motrin] 600 mg PO Q6H PRN #60 tab PRN Reason: Pain oxyCODONE [Roxicodone] 2.5 - 5 mg PO Q4H PRN #24 tablet PRN Reason: Severe Pain Ascorbic Acid [Vitamin C] 250 mg PO BID #90 tablet Additional Instructions or Follow Up instructions: Nothing in the vagina for 6 weeks: No intercourse, tampons, douching Call for: -Fever greater than 100.5 -Pain that does not improve with pain medication -Heavy bleeding in which you are soaking a pad an hour for 2 hours in a row -Incision becomes hot, hard, red, starts to open, or leaks foul smelling fluid No lifting more than 10# for [address] while on narcotics Ok to shower. Let water run over the incision. Do not soap, scrub, or apply lotion. Pat dry with a clean towel or james a hair assistant. The surgical stickers will start to peel off and you can remove them when they do. Otherwise, the provider will remove them at your one week follow-up appointment. OK to use an unscented sanitary napkin or clean washcloth to keep the incision dry if the belly folds over the incision. PLease call for severe headache that does not improve with pain medications, vision changes that include sparkly lights or black spots in your field of vision, or right upper quadrant pain. Also call for blood pressues in which the top number is over 160 or the bottom number is over 110. DC MEDICATIONS: Ibuprofen 600 mg by mouth every 6 hours as needed for pain Acetaminophen 500-1000 mg by mouth every 8 hours as needed for pain Docusate 100-200 mg by mouth twice a day as needed for constipation Oxycodone 2.5-5 mg by mouth every 4 hours as needed for pain Iron gluconate 325 mgby mouth twice a day Vitamin C 250 mg by mouth tiwce a day with iron No Smoking: If you smoke, Please STOP! Call for help. Follow-up with: Coby Jean-Baptiste MD [Provider Admit Priv/Credential] -
[2021-02-07] MEDS: POTASSIUM CHLORIDE 20 MEQ TABLET PO SCH (13:59)
[2021-02-07] MEDS ORDERED: FERRIC GLUCONATE 125 MG in SODIUM CHLORIDE 0.9% 100ML 100 ML IV ONE (14:00)
[2021-02-07] MEDS ORDERED: FUROSEMIDE 20 MG/2 ML VIAL IVP SCH (14:00)
[2021-02-08] MEDS: oxyCODONE 5 MG TABLET PO PRN ×4 (00:01→12:25)
[2021-02-08] MEDS: ACETAMINOPHEN 500 MG TABLET PO SCH ×2 (00:01→08:11)
--- NOTE | 2021-02-08 01:08 | PROVIDER PROGRESS NOTE ---
Subjective - Prog Note Date Prog Note Date: 02/07/21 Prog Note Time: 11:00 - Subjective Subjective: Patient was borderline clinically febrile last night with tachycardia to the 120s and SBPs to the 150s. Still feeling "off". Vitalshave since improved and WBC now trending down. Not feeling ready for discharge. Concerned about large amount of residual edema. +Flatus but still has distention. No NV. Up amd ambulating, tolerating po. Pain well managed. Objective - Vital Signs/Intake & Output Vital Signs: Vital Signs x48h Temp Pulse Resp BP Pulse Ox 02/07/21 20:10 98.8 F 108 H 16 141/62 H 100 Intake & Output: Intake & Output 02/05/21 02/06/21 02/07/21 02/08/21 23:59 23:59 23:59 23:59 Intake Total 2690 1490 110 Output Total 3575 1600 Balance -885 -110 110 - Objective General Appearance: positive: No acute distress, Other (facila edema reduced but still present) Respiratory: positive: No respiratory distress, Breath sounds nml Cardiovascular: positive: Regular rate & rhythm Peripheral Pulses: 2+ Radial (R), 2+ Radial (L), 2+ Dorsalis pedis (R), 2+ Dorsalis pedis (L) Abdomen: positive: Other (Markedly distended. Soft, appropriately tender. Incision CDI) Extremities: positive: Other (3+ BLE edema, NT) Neurologic/Psychiatric: positive: Oriented x3 - Lab Results Fish Bones: 02/07/21 05:22 02/06/21 11:45 Other Labs: Lab Results x24hrs 02/07/21 Range/Units 05:22 WBC 14.1 H (4.8-10.8) x10^3/uL RBC 2.90 L (4.20-5.40) 10^6/uL Hgb 9.0 L (12.0-16.0) g/dL Hct 26.9 L (37.0-47.0) % MCV 92.8 (81.0-99.0) fL MCH 31.0 (27.0-31.0) pg MCHC 33.5 (32.0-36.0) g/dL RDW 13.9 (12.0-15.0) % Plt Count 235 (130-450) 10^3/uL MPV 9.5 (7.9-10.8) fL Neut # (Auto) 11.4 H (1.5-6.6) 10^3/uL Lymph # (Auto) 1.1 L (1.5-3.5) 10^3/uL [place] # (Auto) 1.0 (0.0-1.0) 10^3/uL Eos # (Auto) 0.2 (0.0-0.7) 10^3/uL Baso # (Auto) 0.0 (0.0-0.1) 10^3/uL Absolute Nucleated RBC 0.00 x10^3/uL Nucleated RBC % 0.0 /100WBC Assessment/Plan - Problem List (1) deliv NOS-unsp Impression: POD#3: Concerned about bump in pressure, tachycardia, elevated white count, and borderline febrile temp overnight Improved this am but would recommend additional day of obs Patient in agreement as still feels unwell apart from surgical recovery -Iron infusion -Lasix 10 mg IV -KCL 20 meq po Anticipate DC home in am if improvement trajectory continues.
[2021-02-08] MEDS: IBUPROFEN 600 MG TABLET PO SCH ×2 (02:10→08:11)
[2021-02-08] MEDS: DOCUSATE SODIUM 100 MG CAPSULE PO SCH (08:11)
[2021-02-08] MEDS: POTASSIUM CHLORIDE 20 MEQ TABLET PO SCH (08:11)
[2021-02-08] MEDS: SIMETHICONE CHEW 80 MG TABLET PO PRN (08:12)
[2021-02-08 10:58] LABS: BASOPHILS % (AUTO) 0.3 %; EOSINOPHILS # (AUTO) 0.2 10^3/uL (0.0-0.7); EOSINOPHILS % (AUTO) 1.7 %; HCT - HEMATOCRIT 26.2 % (37.0-47.0); HGB - HEMOGLOBIN 8.6 g/dL (12.0-16.0); LYMPHOCYTES # (AUTO) 1.1 10^3/uL (1.5-3.5); LYMPHOCYTES % (AUTO) 9.6 %; MEAN CORPUSCULAR HEMOGLOBIN 30.1 pg (27.0-31.0); MEAN CORPUSCULAR HGB CONC 32.8 g/dL (32.0-36.0); MEAN CORPUSCULAR VOLUME 91.6 fL (81.0-99.0); MEAN PLATELET VOLUME 9.2 fL (7.9-10.8); MONOCYTES # (AUTO) 1.1 10^3/uL (0.0-1.0); NEUTROPHILS # (AUTO) 8.5 10^3/uL (1.5-6.6); NEUTROPHILS % (AUTO) 76.5 %; PLT - PLATELET COUNT 266 10^3/uL (130-450); RED BLOOD COUNT 2.86 10^6/uL (4.20-5.40); RED CELL DISTRIBUTION WIDTH 13.8 % (12.0-15.0); WHITE BLOOD COUNT 11.1 x10^3/uL (4.8-10.8)
[2021-02-08 11:24] VITALS: BP 103/51
--- NOTE | 2021-02-08 11:32 | PROVIDER PROGRESS NOTE ---
Subjective - Prog Note Date Prog Note Date: 02/08/21 Prog Note Time: 11:30 - Subjective Subjective: Patient feeling much better today. No issues with pain. has been voiding. BP wnl this am and tachycardia has resolved. Tolerating po. Abdominal distention improving. Objective - Vital Signs/Intake & Output Vital Signs: Vital Signs x48h Temp Pulse Resp BP Pulse Ox 02/08/21 11:23 99.0 F 93 18 103/51 L 99 02/08/21 08:00 99.1 F 123 H 20 134/85 H 100 02/08/21 04:00 98.4 F 115 H 16 141/79 H 98 Intake & Output: Intake & Output 02/05/21 02/06/21 02/07/21 02/08/21 23:59 23:59 23:59 23:59 Intake Total 2690 1490 110 Output Total 3575 1600 Balance -885 -110 110 - Objective General Appearance: positive: No acute distress Neck: positive: Nml inspection Respiratory: positive: No respiratory distress Cardiovascular: positive: Other (RR) Peripheral Pulses: 2+ Dorsalis pedis (R), 2+ Dorsalis pedis (L) Abdomen: positive: Non-tender, Other (distention improving. Non-tender to palp. FF below umbi. Incision CDI) Skin: positive: Color nml Extremities: positive: Other (2+ BLE edema, no tenderness) Neurologic/Psychiatric: positive: Oriented x3 - Lab Results Fish Bones: 02/08/21 10:53 02/06/21 11:45 Other Labs: Lab Results x24hrs 02/08/21 Range/Units 10:53 WBC 11.1 H (4.8-10.8) x10^3/uL RBC 2.86 L (4.20-5.40) 10^6/uL Hgb 8.6 L (12.0-16.0) g/dL Hct 26.2 L (37.0-47.0) % MCV 91.6 (81.0-99.0) fL MCH 30.1 (27.0-31.0) pg MCHC 32.8 (32.0-36.0) g/dL RDW 13.8 (12.0-15.0) % Plt Count 266 (130-450) 10^3/uL MPV 9.2 (7.9-10.8) fL Neut # (Auto) 8.5 H (1.5-6.6) 10^3/uL Lymph # (Auto) 1.1 L (1.5-3.5) 10^3/uL [place] # (Auto) 1.1 H (0.0-1.0) 10^3/uL Eos # (Auto) 0.2 (0.0-0.7) 10^3/uL Baso # (Auto) 0.0 (0.0-0.1) 10^3/uL Absolute Nucleated RBC 0.00 x10^3/uL Nucleated RBC % 0.0 /100WBC Assessment/Plan - Problem List (1) deliv NOS-unsp Impression: BPs wnl Meeting goals for discharge S/p IV iron Routine instructions given
--- NOTE | 2021-02-08 11:33 | DISCHARGE SUMMARY ---
"Discharge Summary Admit Date: 02/03/21 Discharge Date: 02/08/21 Discharging Provider: Estiven Code Status: Attempt Resuscitation Condition at Discharge: Good Discharge Disposition: 01 Home, Self Care - DIAGNOSES Admission Diagnoses: IUP at 39+6 wga Anemia SROM Discharge Diagnoses with Status of Each Condition: Same and Delivery LGA infant via primary for second stage arrest with failed vacuum Pre-eclampsia Hypokalemia Acute blood loss anemia - HPI History of Present Illness: Patient is a 35-year-old admitted at 39+6 wga with complaint of ruptured membranes. Reported that membranes ruptured spontaneously at roughly 1645 on 02/03/21. She presented for labor and delivery at which time a ROM plus was performed and was noted to be positive. Patient's OB care started at an [facility]. She transferred care to [facility] at 24 weeks. Her OB care started at 7 weeks EGA. Her labs PNL shows A pos, rubella immune. Negative screen for syphilism, hepatitis B, chlamydia, gonorrhea HIV were all noted to be negative. Patient's 50 g Glucola was 126. Patient had a group B strep culture done at roughly 36 weeks was noted to be positive. Patient's blood pressures throughout her entire roughly have been running in the normal range. They have been running 106 to a maximum of 131. Patient showed good growth. Upon presenting to labor and delivery, patient was noted to have blood pressures which were in the 150s over 90s. These did not resolve with time. Subsequently she had preeclamptic labs drawn which showed a protein creatinine ratio of 0.4. - CONSULTS | PROCEDURES Procedures: Primary low transverse - HOSPITAL COURSE Hospital Course: Patient was admitted with SROM and initial SVE was 3/60/-3 station. Reports rupture of membranes on 02/03/21 at 16:45. She had elevated blood pressures to the 150s/90s. Patient was given IV labetalol x1 dose for SBPs in the 150s and started on a magnesium infusion. BPs were otherwise in normal to mild range during her labor course. With regard to her labor course, she received an epidural for pain management. Pitocin augmentation was started with max dose of 10 mU/min. She was GBS positive. She was given vancomycin for GBS prophylaxis. Patient reached complete @ 1200 on 02/04/21. She was allowed to labor down for 1:20. Pushing effort was suboptimal. Provider assesses the pelvis and felt that a vacuum could over come her lack of pushing. Provider pulled with 3 contractions with out any progress. Patient was exhausted. Discussed options and decisions to proceed with C/S. Risks and benefits explained. These included bleeding infection, injury to abdominal organs. Atony explained. Written informed consent was obtained. Severe allergy to ceftriaxone, gentamicin 5 mg/kg, clindamcyin , and erythromycin give preoperative for prophylaxis. Change of shift occurred and patient proceeded to on 02/04/21 with on- coming provider. Intraoperative findings showed normal appearing uterus, tubes, and ovaries. Female in vertex presentation with a double nuchal cord. Weight 4145g and Apgars 8/9. EBL 1000 cc. Magnesium was discontinued after delivery as severe criteria were not met and patient was poorly tolerating the infusion. Post operative course was complicated by symptoms of ileus; marked abdominal distention, nausea and vomiting. Symptoms improved within 24-48 hours. She has intermittent low grade febrile temperatures, a rising WBC, and intermittent tachycardia. She was observed for progression along postoperative goals on 02/05/21 and 02/06/21. On 02/07/21, patient had rising temperatures to borderline clinically febrile temperature, intermittent tachycardia, and a rising WBC. Also with anemia and hypokalemia. She was given an infusion of ferric gluconate. She was given Lasix 10 mg IV given the diffuse and marked edema and rising blood pressures, and was also given KCL 20 meq po. By 02/08/21, WBC had decreased to 11.1 from a peak of 17.2. Temperature had normalized and tachycardia had resolved. Blood pressures had been in normal to mild range for more than 24 hours. She was meeting goals for discharge and discharged to home with warning signs. Rh pos/Rub imm - ALLERGIES Allergies/Adverse Reactions: Allergies Allergy/AdvReac Type Severity Reaction Status Date / Time amoxicillin Allergy Unknown Verified 02/11/21 18:53 Cephalosporins Allergy Edema Verified 02/11/21 18:53 - MEDICATIONS Home Medications: Ambulatory Orders Medication Instructions Recorded Confirmed Multivit with Calcium,Iron,Min 1 tab PO DAILY 02/04/20 02/11/21 [Multiple Vitamins For Women] Docusate Sodium 100Mg Capsule 100 - 200 mg PO BID PRN #60 cap 02/07/21 02/11/21 [Colace 100Mg Capsule] Ibuprofen [Motrin] 600 mg PO Q6H PRN #60 tab 02/07/21 02/11/21 oxyCODONE [Roxicodone] 2.5 - 5 mg PO Q4H PRN #24 tablet 02/07/21 02/11/21 - LABS Result Diagrams: 02/08/21 10:53 02/06/21 11:45 - FOLLOW UP Follow Up: 1 week for incision check - TIME SPENT Time Spent in Discharge (Minutes): 30"
--- NOTE | 2021-02-08 14:50 | Labor Flowsheet ---
Labor Flowsheet Datetime Report Generated by CPN: 02/08/2021 14:50 Datetime: 02/04/2021 16:30 UTERINE ACTIVITY Monitor Mode: External Frequency (min): 3-6 Quality: Moderate Duration (sec): 30-60 Pattern: Normal: <= 5 Contractions in 10 Minutes Resting Tone (Palpate): Relaxed ASSESSMENT A Monitor Mode: External US FHR Baseline Rate : 130 Variability: Moderate 6-25 bpm Accelerations: 15X15 Decelerations: None Category: Category I Patient Care Comments: Off monitoring, to OR Datetime: 02/04/2021 16:26 Anesthesia Comments: 5ml Lidocaine 2% given by [employer] Datetime: 02/04/2021 16:25 VITAL SIGNS NBP Sys/Carlotta/Mean (mmHg): 127 : 59 : 73 Pulse: 113 LaborFlag: Labor Datetime: 02/04/2021 16:21 Epidural Procedure Other: Redose Datetime: 02/04/2021 16:15 Contraction Comments: poor tracing Comments: period of minimal variability Datetime: 02/04/2021 16:00 Temperature (C): 37.0 Temperature Route: Oral Datetime: 02/04/2021 15:42 I/O Interventions: Mckeon Cath Inserted Datetime: 02/04/2021 14:09 MEDICATIONS Pitocin (milliunits): Discontinued Datetime: 02/04/2021 13:54 Vacuum: Off Datetime: 02/04/2021 13:53 Station Vacuum/Forceps Applied: +2 Stage 2 Comments: vacuum on for 50 seconds Datetime: 02/04/2021 13:28 STAGE 2 Pushing: Coached on Pushing Pushing Position: Pushing with Contractions Pushing Progress: No Descent with Effective Pushing; Ineffective Pushing Datetime: 02/04/2021 13:10 SpO2 (%): 98 Datetime: 02/04/2021 13:07 VAGINAL EXAM Dilatation (cm): 10.0 Effacement (%): 100 Station: 1 Exam by: Dr. Giem Datetime: 02/04/2021 11:41 Stage of : Labor Vital Sign Comments: pt eating ice chips Datetime: 02/04/2021 10:43 PATIENT CARE Patient Position/Activity: Semi-Fowlers Datetime: 02/04/2021 09:35 COMMUNICATION Provider Notified (Name): [employer] Aube Communication Comments: Requested anesthesia provider to bedside to evaluate patient. Will come now . Datetime: 02/04/2021 09:00 Respirations: 16 Datetime: 02/04/2021 07:45 Monitor Interventions for UA: [place] Adjusted Datetime: 02/04/2021 06:48 Vaginal Exam Comments: scant amount of bloody show Datetime: 02/04/2021 06:02 Medication Comments: additional 10mg ephedrine. Datetime: 02/04/2021 05:00 MATERNAL ASSESSMENT Level of Consciousness: Drowsy DTR's/Clonus: DTRs Absent Datetime: 02/04/2021 02:19 Pitocin Checklist: At Least 1 Acceleration of 15 bpm x 15 Seconds in 30 Minutes or Adequate Variabi lity; No More than 1 Late Deceleration Occurred in Past 30 Minutes; No More than 2 Variable Decelerat ions > 60 Seconds in Duration and decreasing >60 bpm in 30 minutes; No More than 5 Uterine Contractio ns in 10 Minutes for any 20 Minute Interval; Uterus Palpates Soft between Contractions Datetime: 02/04/2021 02:00 Breath Sounds, Left: Clear and Equal Breath Sounds, Right: Clear and Equal Datetime: 02/04/2021 01:36 Magnesium/Antihypertensives: Magnesium Sulfate IV (Gm/hr) @ 2 Datetime: 02/04/2021 01:15 FHR Baseline Changes: Tachycardia Datetime: 02/04/2021 00:48 Antiemetics/Antacids: Zofran (mg) @ 4 Datetime: 02/04/2021 00:00 PAIN Pain Scale: 0 Datetime: 02/03/2021 22:21 Epidural Procedure: Test Dose Datetime: 02/03/2021 22:18 PROCEDURE TIME OUT Procedure Verify: Correct Patient Identity; Correct Side and Site are Marked; Accurate Procedure Co nsent Form; Correct Patient Position; Relevant Images and Results are Properly Labeled and Displayed; Safety Precautions Based on Patient History or Medication Use ANESTHESIA Anesthesia Plans: Epidural Epidural Positioning: Sitting Datetime: 02/03/2021 22:00 Pain Goal: 8 Headache: Localized
== END 2021-02-08 14:00 | disposition home or self-care (01) | DRG 787 ==
LOC: WFO 18:09 → FBP 18:40 → WFO 19:43 → FBP 19:43
PROVIDERS: ADMIT Obstetrics & Gynecology; ATTEND Obstetrics & Gynecology
PROC: 10D00Z1 Extraction of Products of Conception, Low, Open Approach (ICD-10-PCS; principal; 2021-02-03)
DX: O14.94 Unspecified pre-eclampsia, complicating childbirth (principal); D62 Acute posthemorrhagic anemia; K56.7 Ileus, unspecified; Z37.0 Single live birth; O42.02 Full-term premature rupture of membranes, onset of labor within 24 hours of rupture; O99.63 Diseases of the digestive system complicating the puerperium; O36.63X0 Maternal care for excessive fetal growth, third trimester, not applicable or unspecified; O99.824 Streptococcus B carrier state complicating childbirth; O62.1 Secondary uterine inertia; O66.5 Attempted application of vacuum extractor and forceps; O75.81 Maternal exhaustion complicating labor and delivery; O99.02 Anemia complicating childbirth; O75.89 Other specified complications of labor and delivery; E87.6 Hypokalemia; O86.4 Pyrexia of unknown origin following delivery; O69.81X0 Labor and delivery complicated by cord around neck, without compression, not applicable or unspecified; O99.334 Smoking (tobacco) complicating childbirth; F17.200 Nicotine dependence, unspecified, uncomplicated; O99.893 Other specified diseases and conditions complicating puerperium; D72.829 Elevated white blood cell count, unspecified; R00.0 Tachycardia, unspecified; Z3A.39 39 weeks gestation of pregnancy; Z79.899 Other long term (current) drug therapy
CPT/HCPCS: 36415; 80053; 82570; 83735; 84112; 84156; 84550; 85025; 86850; 86900; 86901; 86920; 99214; A9270; J1580; J2765; J2916; J3370; J7120; 99213; J3475

== ENCOUNTER 2021-02-11 18:39 | Emergency (ER) | payer OTHER ==
[2021-02-11 19:33] LABS: BASOPHILS % (AUTO) 0.5 %; EOSINOPHILS % (AUTO) 1.7 %; HCT - HEMATOCRIT 29.4 % (37.0-47.0); HGB - HEMOGLOBIN 9.8 g/dL (12.0-16.0); LYMPHOCYTES % (AUTO) 17.7 %; MEAN CORPUSCULAR HEMOGLOBIN 30.4 pg (27.0-31.0); MEAN CORPUSCULAR HGB CONC 33.3 g/dL (32.0-36.0); MEAN CORPUSCULAR VOLUME 91.3 fL (81.0-99.0); MEAN PLATELET VOLUME 8.7 fL (7.9-10.8); MONOCYTES % (AUTO) 7.2 %; NEUTROPHILS % (AUTO) 65.8 %; PLT - PLATELET COUNT 413 10^3/uL (130-450); RED BLOOD COUNT 3.22 10^6/uL (4.20-5.40); RED CELL DISTRIBUTION WIDTH 13.4 % (12.0-15.0); WHITE BLOOD COUNT 10.8 x10^3/uL (4.8-10.8)
[2021-02-11 19:35] LABS: ABNORMAL LYMPHS % (MANUAL) 0 %
[2021-02-11 19:46] LABS: ALBUMIN/GLOBULIN RATIO 0.7 (1.0-2.2); BILIRUBIN,TOTAL 0.5 mg/dL (0.2-1.0); CALCIUM 9.2 mg/dL (8.5-10.3); CREATININE 0.6 mg/dL (0.4-1.0); POTASSIUM 3.5 mmol/L (3.5-5.0); TOTAL PROTEIN 7.5 g/dL (6.7-8.2)
[2021-02-11 19:53] LABS: BAND NEUTROPHILS % (MANUAL) 6 %; BASOPHILS # (MANUAL) 0.1 10^3/uL (0-0.1); BASOPHILS % (MANUAL) 1 %; EOSINOPHILS # (MANUAL) 0.4 10^3/uL (0-0.7); LYMPHOCYTES # (MANUAL) 1.5 10^3/uL (1.5-3.5); LYMPHOCYTES % (MANUAL) 14 %; METAMYELOCYTES % (MANUAL) 2 %; MONOCYTES # (MANUAL) 0.4 10^3/uL (0.0-1.0); MYELOCYTES % (MANUAL) 3 %; NEUTROPHILS # (MANUAL) 7.8 10^3/uL (1.5-6.6)
[2021-02-11 19:54] LABS: PLATELET ESTIMATE, MANUAL NORMAL (130-450,000) (NORMAL); PLATELET MORPHOLOGY NORMAL APPEARANCE (NORMAL); RBC MORPHOLOGY (MULTIPLE) NORMAL APPEARANCE (NORMAL); WBC MORPHOLOGY (MULTIPLE) NORMAL APPEARANCE (NORMAL)
[2021-02-11 19:55] LABS: DIFFERENTIAL COMMENT MANUAL DIFFERENTIAL
[2021-02-11 21:24] LABS: BILIRUBIN,URINE NEGATIVE (NEGATIVE); GLUCOSE, URINE (UA) NEGATIVE (NEGATIVE); KETONES,URINE (UA) NEGATIVE (NEGATIVE); LEUKOCYTE ESTERASE, URINE MODERATE (NEGATIVE); NITRITE,URINE NEGATIVE (NEGATIVE); OCCULT BLOOD,URINE LARGE (NEGATIVE); PROTEIN,URINE TRACE mg/dL (NEGATIVE); UROBILINOGEN,URINE 0.2 (NORMAL) E.U./dL (NORMAL)
[2021-02-11 21:26] LABS: CLARITY,URINE HAZY (CLEAR)
[2021-02-11 21:27] LABS: HCG UR QUAL NEGATIVE
--- NOTE | 2021-02-11 21:33 | ED Physician Documentation ---
History of Present Illness - Stated complaint Stated Complaint: HIGH BP,BILAT LEG SWELLING - Chief complaint Chief Complaint: General - History obtained from History obtained from: Patient - History of Present Illness Timing: Today Pain level now: 0 Improved by: leg edema has improved while awaiting evaluation in ED (thus possibly elevating legs is an ameliorating factor) Worsened by: nothing - Additonal information Additional information: one week post-, delivered 39+6 via transverse . she had anemia during the as well as preeclampsia, although patient says her high blood pressure wasn't noticed until the day her water broke. She has a BP cuff at home and has been measuring her blood pressures daily and tonight noticed persistently elevated blood pressures, highest was 153/99 (it is higher in ED triage). She also notes sudden increase in her BLE edema; she had BLE edema during the but this improved and nearly resolved after giving but today she noticed a rapid worsening of this sign. She says she had left retro-orbital headache earlier today but this has nearly resolved. Review of Systems Constitutional: denies: Fever, Chills, Sweats Eyes: denies: Decreased vision, Photophobia Cardiac: reports: Reviewed and negative Respiratory: reports: Reviewed and negative GI: reports: Reviewed and negative Musculoskeletal: denies: Neck pain, Back pain Neurologic: reports: Headache (nearly resolved). 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: Ovarian cysts : None HEENT: Chronic sinusitis Psych: Depression Musculoskeletal: None Derm: None - Past Surgical History Past Surgical History: No - Present Medications Home Medications: Ambulatory Orders Medication Instructions Recorded Confirmed Multivit with Calcium,Iron,Min 1 tab PO DAILY 02/04/20 02/11/21 [Multiple Vitamins For Women] Docusate Sodium 100Mg Capsule 100 - 200 mg PO BID PRN #60 cap 02/07/21 02/11/21 [Colace 100Mg Capsule] Ibuprofen [Motrin] 600 mg PO Q6H PRN #60 tab 02/07/21 02/11/21 oxyCODONE [Roxicodone] 2.5 - 5 mg PO Q4H PRN #24 tablet 02/07/21 02/11/21 - Allergies Allergies/Adverse Reactions: Allergies Allergy/AdvReac Type Severity Reaction Status Date / Time amoxicillin Allergy Unknown Verified 02/11/21 18:53 Cephalosporins Allergy Edema Verified 02/11/21 18:53 - Social History Does the pt smoke?: Yes Smoking Status: Current every day smoker Does the pt drink ETOH?: Yes Does the pt have substance abuse?: No - Immunizations Immunizations are current?: Yes Immunizations: TDAP >10years/unknown - POLST Patient has POLST: No PD ED PE NORMAL - Vitals Vital signs reviewed: Yes - General General: Alert and oriented X 3, No acute distress, Well developed/nourished - HEENT HEENT: Moist mucous membranes - Neck Neck: Supple, no meningeal sign - Cardiac Cardiac: RRR, No murmur - Respiratory Respiratory: No respiratory distress, Clear bilaterally - Abdomen Abdomen: Soft, Non tender - Derm Derm: Normal color, Warm and dry PD ED PE EXPANDED - Extremities Extremities: Pedal edema bilateral (2+ pitting bilaterally) Results - Vitals Vitals: Oxygen O2 Source Room air - EKG (time done) No standard instances Rate: Rate (enter#) (67) Rhythm: NSR [place]: Normal Intervals: Normal [place] QRS: Normal Ischemia: Normal ST segments - Labs Labs: Microbiology 02/11/21 21:10 Urine Culture - Final Urine,Clean Catch Escherichia Coli Laboratory Tests 02/11/21 02/11/21 02/11/21 19:28 19:28 21:10 WBC 10.8 RBC 3.22 L Hgb 9.8 L Hct 29.4 L MCV 91.3 MCH 30.4 MCHC 33.3 RDW 13.4 Plt Count 413 MPV 8.7 Neut # (Auto) Not Reportable Lymph # (Auto) Not Reportable [place] # (Auto) Not Reportable Eos # (Auto) Not Reportable Baso # (Auto) Not Reportable Absolute Nucleated RBC Not Reportable Total Counted 100 Band Neuts % (Manual) 6 Abnorm Lymph % (Manual) 0 Metamyelocytes % 2 H Myelocytes % 3 H Nucleated RBC % Not Reportable Neutrophils # (Manual) 7.8 H Lymphocytes # (Manual) 1.5 Monocytes # (Manual) 0.4 Eosinophils # (Manual) 0.4 Basophils # (Manual) 0.1 Differential Comment MANUAL DIFFERENTIAL WBC Morphology NORMAL APPEARANCE Platelet Estimate NORMAL (130-450,000) Platelet Morphology NORMAL APPEARANCE RBC Morph Micro Appear NORMAL APPEARANCE Sodium 140 Potassium 3.5 Chloride 102 Carbon Dioxide 25 Anion Gap 13.0 BUN 12 Creatinine 0.6 Estimated GFR (MDRD) 113 Glucose 115 H Calcium 9.2 Magnesium 2.0 Total Bilirubin 0.5 AST 33 ALT 60 Alkaline Phosphatase 215 H Total Protein 7.5 Albumin 3.0 L Globulin 4.5 H Albumin/Globulin Ratio 0.7 L Urine Color YELLOW Urine Clarity HAZY Urine pH 7.0 Ur Specific [place] 1.015 Urine Protein TRACE Urine Glucose (UA) NEGATIVE Urine Ketones NEGATIVE Urine Occult Blood LARGE H Urine Nitrite NEGATIVE Urine Bilirubin NEGATIVE Urine Urobilinogen 0.2 (NORMAL) Ur Leukocyte Esterase MODERATE H Urine RBC 6-10 H Urine WBC 11-25 H Ur Squamous Epith Cells FEW Squamous Urine Bacteria Few Urine Mucus Few Strands Ur Microscopic Review INDICATED Urine Culture Comments INDICATED Urine Creatinine Ur Total Protein Timed Protein/Creatinin Ratio Urine HCG, Qual NEGATIVE 02/11/21 22:53 WBC RBC Hgb Hct MCV MCH MCHC RDW Plt Count MPV Neut # (Auto) Lymph # (Auto) [place] # (Auto) Eos # (Auto) Baso # (Auto) Absolute Nucleated RBC Total Counted Band Neuts % (Manual) Abnorm Lymph % (Manual) Metamyelocytes % Myelocytes % Nucleated RBC % Neutrophils # (Manual) Lymphocytes # (Manual) Monocytes # (Manual) Eosinophils # (Manual) Basophils # (Manual) Differential Comment WBC Morphology Platelet Estimate Platelet Morphology RBC Morph Micro Appear Sodium Potassium Chloride Carbon Dioxide Anion Gap BUN Creatinine Estimated GFR (MDRD) Glucose Calcium Magnesium Total Bilirubin AST ALT Alkaline Phosphatase Total Protein Albumin Globulin Albumin/Globulin Ratio Urine Color Urine Clarity Urine pH Ur Specific [place] Urine Protein Urine Glucose (UA) Urine Ketones Urine Occult Blood Urine Nitrite Urine Bilirubin Urine Urobilinogen Ur Leukocyte Esterase Urine RBC Urine WBC Ur Squamous Epith Cells Urine Bacteria Urine Mucus Ur Microscopic Review Urine Culture Comments Urine Creatinine 33.8 Ur Total Protein Timed 14 Protein/Creatinin Ratio 0.4 H Urine HCG, Qual PD MEDICAL DECISION MAKING - ED course Complexity details: reviewed old records, reviewed results, re-evaluated patient, considered differential, d/w patient ED course: D/W Dr. Mercado, recommends protein/creatinine ratio with sample to be drawn with I/O mini cath (hematuria on first specimen would potentially skew result of protein/creatinine test) this was performed and I then discussed results with Dr. Mercado, recommends d/c but return tomorrow morning to go to L+D for reevaluation. I discussed this plan with patient and she is comfortable with this. Departure - Departure Disposition: 01 Home, Self Care Clinical Impression: Preeclampsia Qualifiers: Trimester: unspecified trimester Qualified Code(s): O14.90 - Unspecified pre- eclampsia, unspecified trimester Condition: Good Instructions: Preeclampsia Comments: Per my conversation with Dr. Mercado, you are to return to this hospital in the morning (no specific time but around 8-9 AM would be appropriate) and go to L+D (labor and delivery) for recheck of blood pressure and blood tests. Discharge Date/Time: 02/12/21 00:01
[2021-02-11 21:38] LABS: BACTERIA,URINE Few /HPF (None Seen); MUCUS,URINE Few Strands; SQUAMOUS EPITHELIAL CELL,UR FEW Squamous (<= Few)
[2021-02-11 23:03] VITALS: BP 155/89
[2021-02-11 23:12] LABS: CREATININE,URINE 33.8 mg/dL; PROTEIN/CREATININE RATIO,URINE 0.4 (<=0.2)
== END 2021-02-12 00:01 | disposition home or self-care (01) ==
LOC: ED 18:39
DX: O14.95 Unspecified pre-eclampsia, complicating the puerperium (principal); O99.335 Smoking (tobacco) complicating the puerperium; F17.200 Nicotine dependence, unspecified, uncomplicated
CPT/HCPCS: 36415; 80053; 81001; 81003; 81025; 82570; 83735; 84156; 85025; 87077; 87086; 87181; 93005; 99282; 99283

== ENCOUNTER 2021-02-12 09:07 | Outpatient (CLI) | payer OTHER ==
[2021-02-12 09:38] LABS: LYMPHOCYTES % (AUTO) 16.9 %; RED CELL DISTRIBUTION WIDTH 13.5 % (12.0-15.0)
[2021-02-12 09:46] LABS: CREATININE 0.6 mg/dL (0.4-1.0)
[2021-02-12 09:47] LABS: CREATININE,URINE 39.8 mg/dL; PROTEIN/CREATININE RATIO,URINE 0.4 (<=0.2)
[2021-02-12 09:59] VITALS: BP 139/63
[2021-02-12 10:03] LABS: BASOPHILS % (AUTO) 0.5 %; EOSINOPHILS % (AUTO) 1.4 %; HCT - HEMATOCRIT 30.6 % (37.0-47.0); HGB - HEMOGLOBIN 10.1 g/dL (12.0-16.0); MEAN CORPUSCULAR HEMOGLOBIN 30.1 pg (27.0-31.0); MEAN CORPUSCULAR VOLUME 91.1 fL (81.0-99.0); MEAN PLATELET VOLUME 9.1 fL (7.9-10.8); MONOCYTES % (AUTO) 6.1 %; NEUTROPHILS % (AUTO) 69.4 %; PLT - PLATELET COUNT 475 10^3/uL (130-450); RED BLOOD COUNT 3.36 10^6/uL (4.20-5.40); WHITE BLOOD COUNT 11.1 x10^3/uL (4.8-10.8)
[2021-02-12 10:05] LABS: ABNORMAL LYMPHS % (MANUAL) 0 %
--- NOTE | 2021-02-12 10:49 | HISTORY & PHYSICAL EXAMINATION ---
History and Physical - History and Physical 35-year-old G1, P1 female who deliveredIdentification: Patient is a 8 days ago. Of delivery was complicated with preeclampsia. She received a single dose of labetalol while in labor. Other than this she received no other antihypertensives. She underwent a for arrest of descent failed vacuum. Her course was normal for blood pressures. Last night she presented to the ED at which time her blood pressure at home was 150s over 99. In the ED initially it was 170/95 however repeat blood pressures all defervesced. She presents today for repeat blood pressure check. In labor and delivery her blood pressures have been 130s to 141 over 80s to 90s. She denies any headache at this time. She has had difficulty with swelling which she states is improving. Her laboratories showed a protein creatinine ratio of 0.4. This is essentially unchanged from discharge.As well as LFTs are all normal her creatinine is 0.6.Her platelets Physical examinationAre in the 400s. Patient is alert and oriented x3 heart regular rate and rhythm without murmurs Lung graf are clear without rales or wheezes Abdomen scar is healing well at this time without erythema Steri- Strips are still in place. The uterus is mildly tender as to be expected. DTRs are +2 she has no clonus. Impression number one 35-year-old P 1 x 8 days. History of preeclampsia. At this point it appears to be stabilizing with blood pressures which are normalizing. We will start patient on labetalol 100 mg p.o. twice daily. She has an appointment to see Dr. Jean-Baptiste on Sunday told to keep that appointment.
[2021-02-12 10:53] LABS: BAND NEUTROPHILS % (MANUAL) 3 %; DIFFERENTIAL COMMENT MANUAL DIFFERENTIAL; EOSINOPHILS # (MANUAL) 0.1 10^3/uL (0-0.7); LYMPHOCYTES % (MANUAL) 18 %; MONOCYTES # (MANUAL) 0.7 10^3/uL (0.0-1.0); NEUTROPHILS # (MANUAL) 8.3 10^3/uL (1.5-6.6); PLATELET ESTIMATE, MANUAL INCREASED (>450,000) (NORMAL); PLATELET MORPHOLOGY NORMAL APPEARANCE (NORMAL); RBC MORPHOLOGY (MULTIPLE) NORMAL APPEARANCE (NORMAL)
[2021-02-12] MEDS ORDERED: LABETALOL 100 MG TABLET PO SCH (11:00)
--- NOTE | 2021-02-12 11:28 | Labor Flowsheet ---
Labor Flowsheet Datetime Report Generated by CPN: 02/12/2021 11:28 Datetime: 02/12/2021 09:58 VITAL SIGNS NBP Sys/Carlotta/Mean (mmHg): 139 : 63 : 82 Pulse: 57 LaborFlag: Labor Datetime: 02/04/2021 16:30 UTERINE ACTIVITY Monitor Mode: External Frequency (min): 3-6 Quality: Moderate Duration (sec): 30-60 Pattern: Normal: <= 5 Contractions in 10 Minutes Resting Tone (Palpate): Relaxed ASSESSMENT A Monitor Mode: External US FHR Baseline Rate : 130 Variability: Moderate 6-25 bpm Accelerations: 15X15 Decelerations: None Category: Category I Patient Care Comments: Off monitoring, to OR Datetime: 02/04/2021 16:26 Anesthesia Comments: 5ml Lidocaine 2% given by PROJECT CONTROLS SPECIALIST Datetime: 02/04/2021 16:21 Epidural Procedure Other: Redose Datetime: 02/04/2021 16:15 Contraction Comments: poor tracing Comments: period of minimal variability Datetime: 02/04/2021 16:00 Temperature (C): 37.0 Temperature Route: Oral Datetime: 02/04/2021 15:42 I/O Interventions: [place] Cath Inserted Datetime: 02/04/2021 14:09 MEDICATIONS Pitocin (milliunits): Discontinued Datetime: 02/04/2021 13:54 Vacuum: Off Datetime: 02/04/2021 13:53 Station Vacuum/Forceps Applied: +2 Stage 2 Comments: vacuum on for 50 seconds Datetime: 02/04/2021 13:28 STAGE 2 Pushing: Coached on Pushing Pushing Position: Pushing with Contractions Pushing Progress: No Descent with Effective Pushing; Ineffective Pushing Datetime: 02/04/2021 13:10 SpO2 (%): 98 Datetime: 02/04/2021 13:07 VAGINAL EXAM Dilatation (cm): 10.0 Effacement (%): 100 Station: 1 Exam by: Dr. Giem Datetime: 02/04/2021 11:41 Stage of : Labor Vital Sign Comments: pt eating ice chips Datetime: 02/04/2021 10:43 PATIENT CARE Patient Position/Activity: Semi-Fowlers Datetime: 02/04/2021 09:35 COMMUNICATION Provider Notified (Name): PROJECT CONTROLS SPECIALIST Aube Communication Comments: Requested anesthesia provider to bedside to evaluate patient. Will come now . Datetime: 02/04/2021 09:00 Respirations: 16 Datetime: 02/04/2021 07:45 Monitor Interventions for UA: [place] Adjusted Datetime: 02/04/2021 06:48 Vaginal Exam Comments: scant amount of bloody show Datetime: 02/04/2021 06:02 Medication Comments: additional 10mg ephedrine. Datetime: 02/04/2021 05:00 MATERNAL ASSESSMENT Level of Consciousness: Drowsy DTR's/Clonus: DTRs Absent Datetime: 02/04/2021 02:19 Pitocin Checklist: At Least 1 Acceleration of 15 bpm x 15 Seconds in 30 Minutes or Adequate Variabi lity; No More than 1 Late Deceleration Occurred in Past 30 Minutes; No More than 2 Variable Decelerat ions > 60 Seconds in Duration and decreasing >60 bpm in 30 minutes; No More than 5 Uterine Contractio ns in 10 Minutes for any 20 Minute Interval; Uterus Palpates Soft between Contractions Datetime: 02/04/2021 02:00 Breath Sounds, Left: Clear and Equal Breath Sounds, Right: Clear and Equal Datetime: 02/04/2021 01:36 Magnesium/Antihypertensives: Magnesium Sulfate IV (Gm/hr) @ 2 Datetime: 02/04/2021 01:15 FHR Baseline Changes: Tachycardia Datetime: 02/04/2021 00:48 Antiemetics/Antacids: Zofran (mg) @ 4 Datetime: 02/04/2021 00:00 PAIN Pain Scale: 0 Datetime: 02/03/2021 22:21 Epidural Procedure: Test Dose Datetime: 02/03/2021 22:18 PROCEDURE TIME OUT Procedure Verify: Correct Patient Identity; Correct Side and Site are Marked; Accurate Procedure Co nsent Form; Correct Patient Position; Relevant Images and Results are Properly Labeled and Displayed; Safety Precautions Based on Patient History or Medication Use ANESTHESIA Anesthesia Plans: Epidural Epidural Positioning: Sitting Datetime: 02/03/2021 22:00 Pain Goal: 8 Headache: Localized
== END 2021-02-12 11:00 | disposition home or self-care (01) ==
LOC: WFO 09:07 → FBP 09:10 → WFO 11:00
PROVIDERS: ATTEND Obstetrics & Gynecology
DX: O16.5 Unspecified maternal hypertension, complicating the puerperium (principal)
CPT/HCPCS: 36415; 82565; 82570; 84156; 84450; 84460; 84550; 85025; A9270; 80053; 99213

== ENCOUNTER 2021-04-01 17:19 | Emergency (ER) | payer OTHER, MEDICAID ==
[2021-04-01 18:24] LABS: BASOPHILS % (AUTO) 0.4 %; EOSINOPHILS # (AUTO) 0.1 10^3/uL (0.0-0.7); EOSINOPHILS % (AUTO) 0.9 %; HCT - HEMATOCRIT 37.9 % (37.0-47.0); HGB - HEMOGLOBIN 11.9 g/dL (12.0-16.0); LYMPHOCYTES # (AUTO) 2.2 10^3/uL (1.5-3.5); LYMPHOCYTES % (AUTO) 32.9 %; MEAN CORPUSCULAR HEMOGLOBIN 28.2 pg (27.0-31.0); MEAN CORPUSCULAR HGB CONC 31.4 g/dL (32.0-36.0); MEAN CORPUSCULAR VOLUME 89.8 fL (81.0-99.0); MEAN PLATELET VOLUME 9.4 fL (7.9-10.8); MONOCYTES # (AUTO) 0.4 10^3/uL (0.0-1.0); MONOCYTES % (AUTO) 6.6 %; NEUTROPHILS # (AUTO) 3.9 10^3/uL (1.5-6.6); NEUTROPHILS % (AUTO) 58.9 %; PLT - PLATELET COUNT 280 10^3/uL (130-450); RED BLOOD COUNT 4.22 10^6/uL (4.20-5.40); RED CELL DISTRIBUTION WIDTH 12.9 % (12.0-15.0); WHITE BLOOD COUNT 6.7 x10^3/uL (4.8-10.8)
[2021-04-01 18:38] LABS: ALBUMIN 4.4 g/dL (3.2-5.5); ALBUMIN/GLOBULIN RATIO 1.2 (1.0-2.2); BILIRUBIN,TOTAL 0.8 mg/dL (0.2-1.0); CALCIUM 9.6 mg/dL (8.5-10.3); CREATININE 0.8 mg/dL (0.4-1.0); POTASSIUM 3.7 mmol/L (3.5-5.0); TOTAL PROTEIN 8.1 g/dL (6.7-8.2)
--- NOTE | 2021-04-01 19:21 | ED Physician Documentation ---
History of Present Illness - Stated complaint Stated Complaint: POST OP OOZE - Chief complaint Chief Complaint: Abd Pain - History obtained from History obtained from: Patient - Additonal information Additional information: 35-year-old woman with history of in January presents with small amount of drainage from the wound site over the past 24 hours with clearish and bloody material. 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: Ovarian cysts : None HEENT: Chronic sinusitis Psych: Depression Musculoskeletal: None Derm: None - Past Surgical History Past Surgical History: Yes /REPAIRER WELDING SYSTEMS AND EQUIPMENT: section - Present Medications Home Medications: Ambulatory Orders Medication Instructions Recorded Confirmed No Known Home Medications 04/01/21 04/01/21 - Allergies Allergies/Adverse Reactions: Allergies Allergy/AdvReac Type Severity Reaction Status Date / Time amoxicillin Allergy Unknown Verified 04/01/21 17:29 Cephalosporins Allergy Edema Verified 04/01/21 17:29 - Social History Does the pt smoke?: Yes Smoking Status: Current every day smoker Does the pt drink ETOH?: Yes Does the pt have substance abuse?: No - Immunizations Immunizations are current?: Yes Immunizations: TDAP >10years/unknown - POLST Patient has POLST: No PD ED PE NORMAL - Vitals Vital signs reviewed: Yes - General General: Alert and oriented X 3, No acute distress, Well developed/nourished - HEENT HEENT: Atraumatic, PERRL, EOMI - Neck Neck: Supple, no meningeal sign - Abdomen Abdomen: Non tender, Non distended, Other (horizontal c section scar well healed without visible drainage or erythema. nonindurated) - Derm Derm: Normal color, Warm and dry - Extremities Extremities: No deformity - Neuro Neuro: Alert and oriented X 3, No motor deficit, No sensory deficit - Psych Psych: Normal mood, Normal affect Results - Vitals Vitals: Vital Signs - 24 hr 04/01/21 04/01/21 17:30 18:32 Temperature 36.8 C 36.8 C Heart Rate 60 60 Respiratory 18 18 Rate Blood Pressure 132/64 H 132/64 H O2 Saturation 100 100 Oxygen O2 Source Room air - Labs Labs: Laboratory Tests 04/01/21 04/01/21 18:18 18:18 WBC 6.7 RBC 4.22 Hgb 11.9 L Hct 37.9 MCV 89.8 MCH 28.2 MCHC 31.4 L RDW 12.9 Plt Count 280 MPV 9.4 Neut # (Auto) 3.9 Lymph # (Auto) 2.2 [place] # (Auto) 0.4 Eos # (Auto) 0.1 Baso # (Auto) 0.0 Absolute Nucleated RBC 0.00 Nucleated RBC % 0.0 Sodium 138 Potassium 3.7 Chloride 102 Carbon Dioxide 24 Anion Gap 12.0 BUN 9 Creatinine 0.8 Estimated GFR (MDRD) 81 L Glucose 93 Calcium 9.6 Total Bilirubin 0.8 AST 21 ALT 18 Alkaline Phosphatase 70 Total Protein 8.1 Albumin 4.4 Globulin 3.7 Albumin/Globulin Ratio 1.2 Lipase 42 PD MEDICAL DECISION MAKING - ED course ED course: 35-year-old woman presents for evaluation of her wound site which appears to be well-healed. No drainage visible at this time. Education given return precautions given. She will follow up with her JOB COUNSELOR. Departure - Departure Disposition: 01 Home, Self Care Clinical Impression: Encounter for wound re-check Condition: Good Instructions: ED Screening Exam Medical Nonurgent Comments: You were seen in the emergency department for evaluation of your scar. There does not appear to be an infection in any dangerous cause for your symptoms. Please return to the emergency department if you have any new or worsening symptoms or other concerns. Your lab work was normal with the exception of some mild anemia. Please follow-up with your JOB COUNSELOR.
[2021-04-01 19:24] VITALS: BP 133/65
== END 2021-04-01 19:24 | disposition home or self-care (01) ==
LOC: ED 17:19
DX: Z48.816 Encounter for surgical aftercare following surgery on the genitourinary system (principal); F17.200 Nicotine dependence, unspecified, uncomplicated
CPT/HCPCS: 36415; 80053; 83690; 85025; 99282; 99283

== ENCOUNTER 2021-04-14 15:19 | Outpatient (CLI) | payer OTHER, MEDICAID ==
[2021-04-14 22:39] LABS: BACTERIAL VAGINOSIS DNA NEGATIVE (NEGATIVE); CANDIDA KRUSEI DNA NEGATIVE (NEGATIVE); TRICHOMONAS VAGINALIS DNA NEGATIVE (NEGATIVE)
[2021-04-14 22:40] LABS: CANDIDA GLABRATA DNA NEGATIVE (NEGATIVE); CANDIDA GROUP DNA POSITIVE (NEGATIVE)
[2021-04-14 23:35] LABS: CHLAMYDIA TRACHOMATIS DNA NEGATIVE (NEGATIVE); NEISSERIA GONORRHOEAE DNA NEGATIVE (NEGATIVE); TRICHOMONAS VAGINALIS DNA NEGATIVE (NEGATIVE)
[2021-04-15 10:57] LABS: HEPATITIS C ANTIBODY NON-REACTIVE (NON-REACTIVE)
[2021-04-15 13:41] LABS: HIV AG/AB 4TH GEN NON-REACTIVE (NON-REACTIVE)
[2021-04-16 13:46] LABS: HSV 1 IGG TYPE SPECIFIC AB <0.90 index; HSV 2 IGG TYPE SPECIFIC AB <0.90 index
== END 2021-04-14 23:59 | disposition home or self-care (01) ==
LOC: LAB.N 15:19
PROVIDERS: ATTEND Nurse Practitioner
DX: N89.8 Other specified noninflammatory disorders of vagina (principal)
CPT/HCPCS: 81599; 86592; 86695; 86696; 86803; 87086; 87389; 87491; 87591; 87661; 87801

== ENCOUNTER 2022-12-14 18:00 | Outpatient (CLI) | payer OTHER ==
[2022-12-15 04:59] LABS: BACTERIAL VAGINOSIS DNA POSITIVE (NEGATIVE); CANDIDA GLABRATA DNA NEGATIVE (NEGATIVE); CANDIDA GROUP DNA NEGATIVE (NEGATIVE); CANDIDA KRUSEI DNA NEGATIVE (NEGATIVE); TRICHOMONAS VAGINALIS DNA NEGATIVE (NEGATIVE)
[2022-12-15 07:06] LABS: CHLAMYDIA TRACHOMATIS DNA NEGATIVE (NEGATIVE)
[2022-12-15 07:07] LABS: NEISSERIA GONORRHOEAE DNA NEGATIVE (NEGATIVE)
[2022-12-16 05:10] LABS: HCV AB Non Reactive (Non Reactive); HIV SCREEN 4TH GENERATION Non Reactive (Non Reactive); RPR Non Reactive (Non Reactive)
== END 2022-12-14 18:15 | disposition home or self-care (01) ==
LOC: LAB.N 18:00
PROVIDERS: ATTEND Registered Nurse
DX: L29.8 Other pruritus (principal); Z20.2 Contact with and (suspected) exposure to infections with a predominantly sexual mode of transmission
CPT/HCPCS: 36415; 81514; 86592; 86803; 87389; 87491; 87591; 87661

== ENCOUNTER 2023-10-23 08:00 | Outpatient (CLI) | payer OTHER ==
[2023-10-24 01:55] LABS: BACTERIAL VAGINOSIS DNA NEGATIVE (NEGATIVE); CANDIDA GLABRATA DNA NEGATIVE (NEGATIVE); CANDIDA GROUP DNA NEGATIVE (NEGATIVE); CANDIDA KRUSEI DNA NEGATIVE (NEGATIVE); TRICHOMONAS VAGINALIS DNA NEGATIVE (NEGATIVE)
== END 2023-10-23 23:59 | disposition home or self-care (01) ==
LOC: LAB.N 08:00
PROVIDERS: ATTEND Family Medicine
DX: R30.0 Dysuria (principal); N89.8 Other specified noninflammatory disorders of vagina
CPT/HCPCS: 81514; 87086

== ENCOUNTER 2023-11-20 18:18 | Emergency (ER) | payer OTHER ==
[2023-11-20 20:09] LABS: B. PARAPERTUSSIS- RESP PCR PAN NOT DETECTED; B. PERTUSSIS- RESP PCR PANEL NOT DETECTED; C. PNEUMONIAE- RESP PCR PANEL NOT DETECTED; CORONAVIRUS 229E-RESP PCR NOT DETECTED; CORONAVIRUS HKU1-RESP PCR NOT DETECTED; CORONAVIRUS NL63-RESP PCR NOT DETECTED; CORONAVIRUS OC43-RESP PCR NOT DETECTED; HUMAN METAPNEUMOVIRUS NOT DETECTED; INFLUENZA A- RESP PCR PANEL NOT DETECTED; INFLUENZA B - RESP PCR PANEL NOT DETECTED; M. PNEUMONIAE- RESP PCR PANEL NOT DETECTED; PARAINFLUENZA VIRUS 1 NOT DETECTED; PARAINFLUENZA VIRUS 2 NOT DETECTED; PARAINFLUENZA VIRUS 3 NOT DETECTED; PARAINFLUENZA VIRUS 4 NOT DETECTED; RHINOVIRUS/ENTEROVIRUS NOT DETECTED; RSV- RESP PCR PANEL NOT DETECTED; SARS-CoV-2 -RESP PCR PANEL NOT DETECTED
[2023-11-20 20:12] LABS: BASOPHILS # (AUTO) 0.1 10^3/uL (0.0-0.1); BASOPHILS % (AUTO) 0.6 %; EOSINOPHILS # (AUTO) 0.1 10^3/uL (0.0-0.7); EOSINOPHILS % (AUTO) 1.1 %; HCT - HEMATOCRIT 39.1 % (37.0-47.0); HGB - HEMOGLOBIN 12.6 g/dL (12.0-16.0); LYMPHOCYTES # (AUTO) 2.5 10^3/uL (1.5-3.5); LYMPHOCYTES % (AUTO) 28.5 %; MEAN CORPUSCULAR HEMOGLOBIN 28.8 pg (27.0-31.0); MEAN CORPUSCULAR HGB CONC 32.2 g/dL (32.0-36.0); MEAN CORPUSCULAR VOLUME 89.3 fL (81.0-99.0); MEAN PLATELET VOLUME 9.6 fL (7.9-10.8); MONOCYTES # (AUTO) 0.5 10^3/uL (0.0-1.0); MONOCYTES % (AUTO) 5.7 %; NEUTROPHILS # (AUTO) 5.6 10^3/uL (1.5-6.6); PLT - PLATELET COUNT 316 10^3/uL (130-450); RED BLOOD COUNT 4.38 10^6/uL (4.20-5.40); RED CELL DISTRIBUTION WIDTH 12.6 % (12.0-15.0); WHITE BLOOD COUNT 8.7 x10^3/uL (4.8-10.8)
--- NOTE | 2023-11-20 20:38 | ED Physician Documentation ---
PD HPI CHEST PAIN - Stated complaint Stated Complaint: SOA/CHEST PX - Chief complaint Chief Complaint: Cardiac - History obtained from History obtained from: Patient - History of Present Illness Timing - onset: How many days ago (few) Timing - onset during: Sleep (noting it more at night and resting, some more after eating.). No: Light activity, Exertion Timing - duration: Days (few) Timing - details: Gradual onset, Intermittant Quality: Aching, Pain Location: Substernal, Epigastric Radiation: Back Improved by: No: Rest Worsened by: Eating. No: Exertion, Inspiration, Palpation Associated symptoms: Shortness of air. 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: Ovarian cysts : None HEENT: Chronic sinusitis Psych: Depression Musculoskeletal: None Derm: None - Past Surgical History Past Surgical History: Yes /CERTIFIED MASTER LOCKSMITH: section - Present Medications Home Medications: Ambulatory Orders Medication Instructions Recorded Confirmed Albuterol Sulf [Ventolin Hfa 1 - 2 puffs INH Q4HR PRN #1 each 11/20/23 Inhaler] Famotidine [Pepcid] 20 mg PO BID #30 tablet 11/20/23 - Allergies Allergies/Adverse Reactions: Allergies Allergy/AdvReac Type Severity Reaction Status Date / Time Cephalosporins Allergy Edema Verified 11/20/23 18:40 - Social History Does the pt smoke?: Yes Smoking Status: Current every day smoker Does the pt drink ETOH?: Yes Does the pt have substance abuse?: No - Immunizations Immunizations are current?: Yes Immunizations: TDAP >10years/unknown - POLST Patient has POLST: No PD ED PE NORMAL - Vitals Vital signs reviewed: Yes - General General: Alert and oriented X 3, No acute distress, Well developed/nourished - HEENT HEENT: Pharynx benign - Neck Neck: Supple, no meningeal sign, No adenopathy - Cardiac Cardiac: RRR, No murmur - Respiratory Respiratory: No respiratory distress, Clear bilaterally, Other (no chestwall tenderness) - Abdomen Abdomen: Soft, Non tender - Extremities Extremities: No edema, No calf tenderness / cord - Neuro Neuro: Alert and oriented X 3, No motor deficit, Normal speech Results - Vitals Vitals: Oxygen O2 Source Room air - EKG (time done) 18:37 EKG releavant findings:: EKG personally interpreted by author of this note. Relevant findings are: Rate: Rate (enter#) (69) Rhythm: NSR [place]: Normal Intervals: Normal RI QRS: Normal Ischemia: Normal ST segments. No: ST elevation c/w ischemia, ST depression - Labs Labs: Laboratory Tests 11/20/23 11/20/23 11/20/23 18:40 20:08 20:08 WBC 8.7 RBC 4.38 Hgb 12.6 Hct 39.1 MCV 89.3 MCH 28.8 MCHC 32.2 RDW 12.6 Plt Count 316 MPV 9.6 Neut # (Auto) 5.6 Lymph # (Auto) 2.5 [place] # (Auto) 0.5 Eos # (Auto) 0.1 Baso # (Auto) 0.1 Absolute Nucleated RBC 0.00 Nucleated RBC % 0.0 Sodium 139 Potassium 3.4 L Chloride 102 Carbon Dioxide 30 Anion Gap 7.0 BUN 12 Creatinine 0.6 Estimated GFR (MDRD) 112 Glucose 111 H Calcium 10.4 H Total Bilirubin 1.0 AST 14 ALT 13 Alkaline Phosphatase 43 Troponin I High Sens 5.4 Total Protein 7.7 Albumin 4.7 Globulin 3.0 Albumin/Globulin Ratio 1.6 Serum HCG, Qual NEGATIVE Nasal Adenovirus (PCR) NOT DETECTED Nasal B. parapertussis DNA (PCR) NOT DETECTED Nasal Coronavir 229E PCR NOT DETECTED Nasal Coronavir HKU1 PCR NOT DETECTED Nasal Coronavir NL63 PCR NOT DETECTED Nasal Coronavir OC43 PCR NOT DETECTED Nasal Enterovir/Rhinovir PCR NOT DETECTED Nasal Influenza B PCR NOT DETECTED Nasal Influenza A PCR NOT DETECTED Nasal Parainfluen 1 PCR NOT DETECTED Nasal Parainfluen 2 PCR NOT DETECTED Nasal Parainfluen 3 PCR NOT DETECTED Nasal Parainfluen 4 PCR NOT DETECTED Nasal RSV (PCR) NOT DETECTED Nasal B.pertussis DNA PCR NOT DETECTED Nasal C.pneumoniae (PCR) NOT DETECTED [place] Human Metapneumo PCR NOT DETECTED Nasal M.pneumoniae (PCR) NOT DETECTED Nasal SARS-CoV-2 (PCR) NOT DETECTED - Rads (name of study) chest xray Relevant Findings:: Prelim report reviewed, EMP independent interpretation of test (no effusions, PTX, CHF nor cardiomegaly. ) PD Medical Decision Making - ED course Complexity details: reviewed results, considered differential (intermittent chest to back pain, nonexertional, noted more with lying and after eating. ECG, CXR and trop are normal. Fits more with GERD/esophagitis. ), d/w patient Departure - Departure Disposition: Home, Self Care Clinical Impression: Substernal chest pain, Esophagitis Condition: Stable Record reviewed to determine appropriate education?: Yes Instructions: ED Chest Pain Atypical Unkn Cause Follow-Up: Ashely Norwood PA [Primary Care Provider] - Prescriptions: Albuterol Sulf [Ventolin Hfa Inhaler] 1 - 2 puffs INH Q4HR PRN #1 each PRN Reason: Shortness Of Air/Wheezing Famotidine [Pepcid] 20 mg PO BID #30 tablet Comments: Your EKG, chest x-ray, blood tests are normal. No signs of pneumonia, fluid in the lungs, enlarged heart, heart injury/heart attack or heart failure. Your basic blood tests are good as well with normal blood count electrolytes and blood sugar. No signs of pancreatic or liver inflammation. At this point I presume your pain may relate to irritation of the esophagus or stomach. I would suggest some acid reducing medicine such as famotidine. In addition use an antacid such as Maalox or Mylanta 3-4 times daily, in particular before bedtime and after meals. Do this for the next week or so. Add Tylenol every 4-6 hours if needed for pain. For your breathing, there may be some element of allergies or such. Use the albuterol inhaler 2 puffs 4 times a day for the next several days to week as well. Follow-up with your primary care as planned. Forms: PCP List Discharge Date/Time: 11/20/23 23:16
[2023-11-20 20:54] LABS: ALBUMIN 4.7 g/dL (3.2-5.5); ALBUMIN/GLOBULIN RATIO 1.6 (1.0-2.2); ALKALINE PHOSPHATASE 43 IU/L (42-121); ALT ALANINE AMINOTRANSFERASE 13 IU/L (10-60); AST ASPARTATE AMINOTRANSFERASE 14 IU/L (10-42); BUN - BLOOD UREA NITROGEN 12 mg/dL (6-20); CALCIUM 10.4 mg/dL (8.5-10.3); CARBON DIOXIDE - CO2 30 mmol/L (21-32); CHLORIDE 102 mmol/L (101-111); CREATININE 0.6 mg/dL (0.6-1.3); GFR - MDRD 112 (>89); GLUCOSE 111 mg/dL (74-104); POTASSIUM 3.4 mmol/L (3.5-4.5); SODIUM 139 mmol/L (135-145); TOTAL PROTEIN 7.7 g/dL (6.4-8.9)
[2023-11-20 20:59] LABS: TROPONIN I HIGH SENSITIVITY 5.4 ng/L (2.3-14.8)
[2023-11-20 21:00] LABS: HCG,QUALITATIVE BLOOD NEGATIVE
[2023-11-20] MEDS: ALBUTEROL 1 PUFF INH STA (21:35)
[2023-11-20] MEDS: MAG HYDROX/AL HYDROX/SIMETH 30 ML UDC PO STA (21:46)
[2023-11-20] MEDS: ACETAMINOPHEN 500 MG TABLET PO STA (21:47)
--- NOTE | 2023-11-20 23:01 | XRAY Report ---
PROCEDURE: Chest 2V INDICATIONS: chest pain TECHNIQUE: 2 views of the chest were acquired. COMPARISON: Chest radiograph 08/08/2019 FINDINGS: Surgical changes and devices: None. Lungs and pleura: No pleural effusions or pneumothorax. Lungs are clear. Mediastinum: Mediastinal contours appear normal. Heart size is normal. Bones and chest wall: No suspicious bony lesions. Overlying soft tissues appear unremarkable. IMPRESSION: No acute cardiopulmonary process. Reviewed by: Kd Fuentes MD on 11/20/2023 11:00 PM PDT Approved by: Kd Fuentes MD on 11/20/2023 11:00 PM PDT Station ID: [id number]
[2023-11-20] MEDS: FAMOTIDINE 20 MG TABLET PO STA (23:10)
[2023-11-20 23:16] VITALS: BP 113/72; O2SAT 100
== END 2023-11-20 23:16 | disposition home or self-care (01) ==
LOC: ED 18:18
DX: K20.90 Esophagitis, unspecified without bleeding (principal); R07.89 Other chest pain; I10 Essential (primary) hypertension; F17.200 Nicotine dependence, unspecified, uncomplicated
CPT/HCPCS: 36415; 71046; 80053; 84484; 84703; 85025; 87633; 93005; 94640; 94664; 99284; A9270